=== PATIENT | female | born 1955 | race Caucasian/White ===

== ENCOUNTER → 2017-07-03 09:41 | Outpatient (CLI) | payer MEDICARE, OTHER, SELFPAY ==
--- NOTE | 2017-07-03 09:49 | XR_ITS ---
XR knee RT 3V Ordering Physician: Carly Olmos Patient Age: 62 years: Female HISTORY: ITS.REASON: RT KNEE PAIN TECHNIQUE: 3 view right knee COMPARISON :None available. FINDINGS No fracture nor dislocation. There is a joint effusion evident at suprapatellar bursa. Joint spaces fairly well maintained on this nonweightbearing study. Only slight sharpening of the medial margin of the joint may reflect some scant degenerative changes but unimpressive IMPRESSION: No fracture. Moderate to generous Joint effusion suprapatella bursa clearly evident
== END ==
PROVIDERS: PCP Nurse Practitioner Family; Visit Provider Nurse Practitioner Family
DX: M25.561 Pain in right knee (principal)
CPT/HCPCS: 73562

== ENCOUNTER → 2021-09-13 11:02 | Outpatient (CLI) | payer MEDICARE, SELFPAY ==
[2021-09-13 11:57] LABS: Basophils # 0.1 K/mm3 (0-0.2); Basophils % 1.1 % (0.1-2.0); Eosinophils # 0.2 K/mm3 (0.0-0.4); Eosinophils % 2.3 % (0.1-12.0); Hematocrit 46.8 % (37.0-47.0); Hemoglobin 15.2 g/dL (12.2-16.2); Lymphocytes # 1.3 K/mm3 (0.7-4.5); Lymphocytes % 20.8 % (10-50); Mean Corpuscular HGB Conc 32.4 g/dL (31.8-35.4); Mean Corpuscular Hemoglobin 28.9 pg (27.0-31.2); Mean Corpuscular Volume 89.2 fl (81-99); Mean Platelet Volume 8.2 fl (7.4-10.4); Monocytes # 0.3 K/mm3 (0.1-1.0); Neutrophils # 4.7 K/mm3 (1.8-7.8); Neutrophils % 71.9 % (37.0-80.0); Platelet Count 429 K/mm3 (142-424); Red Blood Count 5.25 M/mm3 (4.20-5.40); Red Cell Distribution Width 14.6 % (11.5-17.5); White Blood Count 6.5 K/mm3 (4.8-10.8)
[2021-09-13 12:51] LABS: 25-OH Vitamin D, Total 22.2 ng/mL (30-100)
[2021-09-13 15:49] LABS: Chloride 108 mmol/L (98-107); Sodium 140 mmol/L (136-145)
[2021-09-13 15:50] LABS: Potassium 4.3 mmoL/L (3.5-5.1)
[2021-09-13 15:52] LABS: Alanine Aminotransferase 20 U/L (12-78); Albumin Level 4.3 g/dl (3.5-5.0); Alkaline Phosphatase 104 U/L (38-126); Anion Gap 14.3 mEq/L (5-15); Aspartate Amino Transferase 26 U/L (14-36); Bilirubin,Total 0.5 mg/dl (0.2-1.3); Blood Urea Nitrogen 12 mg/dl (7-17); Carbon Dioxide 22 mmol/L (22.0-30.0); Cholesterol 231 mg/dl (140-200); Estimated Glomerular Filt Rate 100 ml/min (>60); GFR (African American) 121 ML/MIN (>60); Triglycerides 95 mg/dl (30-150); VLDL Cholesterol 19 mg/dL (0-40)
[2021-09-13 15:53] LABS: Albumin/Globulin Ratio 1.3 (1.1-1.8); Calcium 9.7 mg/dl (8.4-10.2); Globulin 3.3 g/dL (1.3-3.2); Glucose 99 mg/dl (74-100); HDL Cholesterol 58 mg/dl (40-60); Total Protein,Serum 7.6 g/dl (6.3-8.2)
[2021-09-13 16:04] LABS: Direct LDL Cholesterol 138.98 mg/dL (100-129)
[2021-09-13 16:10] LABS: T4 (Thyroxine) 11.9 ug/dl (5.53-11.0)
[2021-09-13 16:23] LABS: Thyroid Stimulating Hormone 1.03 uIU/mL (0.465-4.68)
== END ==
PROVIDERS: Visit Provider Emergency Medicine
DX: M79.2 Neuralgia and neuritis, unspecified (principal); E66.3 Overweight; M14.60 Charcot's joint, unspecified site; R53.83 Other fatigue; E55.9 Vitamin D deficiency, unspecified; Z79.899 Other long term (current) drug therapy; Z68.28 Body mass index [BMI] 28.0-28.9, adult
CPT/HCPCS: 80053; 80061; 82306; 84436; 84443; 85025

== ENCOUNTER → 2021-12-14 07:50 | Outpatient (CLI) | payer MEDICARE, OTHER, SELFPAY ==
--- NOTE | 2021-12-14 07:50 | CT_ITS ---
FINAL REPORT CLINICAL HISTORY: lung cancer screening 1ppd x 52 years copd no family hx of lung cancer. no hx of cancer FINDINGS: Low-Dose Chest CT CTDI vol (mGy): 2.90 DLP (mGy-cm): 107.33 Axial images were obtained from the lung apex to the mid abdomen by computed tomography. Low-dose protocol was utilized. FINDINGS: CHEST: There is no axillary adenopathy. There is no hilar or mediastinal adenopathy. The heart is proper size. There is no pericardial or pleural effusion. Limited images of the upper abdomen are unremarkable. Lung window images demonstrate moderate changes of emphysema with moderate scarring. There is a 5 mm nodule in the lateral right middle lobe. There are 10 and 6 mm nodules in the lateral right lower lobe. IMPRESSION: Lung RADS category 4A. Recommend PET/CT. Reviewed, Interpreted and Dictated by Erik Tomas III, MD Transcribed by Yahir Holt Authenticated and [facility]
== END ==
PROVIDERS: PCP Emergency Medicine; Visit Provider Emergency Medicine
DX: Z87.891 Personal history of nicotine dependence (principal); Z12.2 Encounter for screening for malignant neoplasm of respiratory organs
CPT/HCPCS: 71271

== ENCOUNTER → 2021-12-31 11:17 | Outpatient (CLI) | payer MEDICARE, OTHER, SELFPAY ==
[2021-12-31 12:19] LABS: Basophils % 0.3 % (0.1-2.0); Eosinophils # 0.2 K/mm3 (0.0-0.4); Hematocrit 47.2 % (37.0-47.0); Hemoglobin 15.3 g/dL (12.2-16.2); Lymphocytes # 1.5 K/mm3 (0.7-4.5); Lymphocytes % 17.3 % (10-50); Mean Corpuscular HGB Conc 32.5 g/dL (31.8-35.4); Mean Corpuscular Hemoglobin 28.8 pg (27.0-31.2); Mean Corpuscular Volume 88.8 fl (81-99); Mean Platelet Volume 7.8 fl (7.4-10.4); Monocytes # 0.4 K/mm3 (0.1-1.0); Monocytes % 4.2 % (1.7-9.3); Neutrophils # 6.5 K/mm3 (1.8-7.8); Neutrophils % 76.2 % (37.0-80.0); Platelet Count 376 K/mm3 (142-424); Red Blood Count 5.32 M/mm3 (4.20-5.40); Red Cell Distribution Width 14.1 % (11.5-17.5); White Blood Count 8.6 K/mm3 (4.8-10.8)
[2021-12-31 12:34] LABS: Alanine Aminotransferase 24 U/L (12-78); Albumin Level 4.3 g/dl (3.5-5.0); Alkaline Phosphatase 131 U/L (38-126); Anion Gap 13.5 mEq/L (5-15); Aspartate Amino Transferase 26 U/L (14-36); Bilirubin,Unconjugated 0.4 mg/dL (0.0-1.1); Blood Urea Nitrogen 8 mg/dl (7-17); Calcium 9.9 mg/dl (8.4-10.2); Carbon Dioxide 29 mmol/L (22.0-30.0); Chloride 105 mmol/L (98-107); Estimated Glomerular Filt Rate 100 ml/min (>60); GFR (African American) 121 ML/MIN (>60); Glucose 138 mg/dl (74-100); Potassium 3.5 mmoL/L (3.5-5.1); Sodium 144 mmol/L (136-145); Total Protein,Serum 7.6 g/dl (6.3-8.2)
[2021-12-31 12:35] LABS: Bilirubin,Total < 0.1 mg/dl (0.2-1.3)
[2021-12-31 15:41] LABS: Bilirubin,Direct 0.1 mg/dl (0.0-0.4)
[2022-01-01 23:38] LABS: Hep A Ab, IgM Negative; Hepatitis B Core Antibody IgM Negative; Hepatitis B Surface Antigen Negative; Hepatitis C Antibody 0.1
[2022-01-01 23:39] LABS: HIV Screen 4th Generation wRfx Non Reactive
== END ==
PROVIDERS: PCP Emergency Medicine; Visit Provider Nurse Practitioner Family
DX: F11.20 Opioid dependence, uncomplicated (principal); Z11.4 Encounter for screening for human immunodeficiency virus [HIV]
CPT/HCPCS: 36415; 80048; 80074; 80076; 85025; 86703; G0432

== ENCOUNTER 2022-01-05 08:36 | Observation (INO) | payer MEDICARE, OTHER, SELFPAY ==
[2022-01-05] VITALS (12 sets, daily range): BP systolic 110–128; BP diastolic 63–75; PULSE 72–97; RESP 18–26; TEMP 36.6–37.1; O2SAT 90–95; BMI 28.8; BMI 29.3
--- NOTE | 2022-01-05 08:36 | ECG_ITS ---
APPROVED REPORT Exam: Resting ECG HR:90 bpm ECG Measurements Heart Rate 90 AXES GA 129 P 78 QRSd 84 QRS 80 QT 340 T 92 QTc 388 Conclusion SINUS RHYTHM NORMAL ECG UNCONFIRMED REPORT Electronically signed by : Richie Orr MD 01/06/2022 21:09:49
--- NOTE | 2022-01-05 08:39 | HMH.EDGENADL ---
ED Disposition Clinical Impression: Community acquired pneumonia Qualifiers: Laterality: right Lung location: unspecified part of lung Qualified Code(s): J18.9 - Pneumonia, unspecified organism Disposition: Admitted as Observation Condition on Discharge: Fair Referrals: Dave Kidd MD [Primary Care Provider] - - Critical Care Critical Care Time: No Attestation: On , the high probability of a clinically significant, sudden or life threatening deterioration of the following system(s) required my full and direct attention, intervention and personal management. The time I documented below is in addition to time spent performing reported procedures but includes the following listed in this critical care notation. Medical Decision Making - João Inquiry Pt receiving controlled substance: No Vital Signs: 01/05/22 08:39 01/05/22 08:47 Temperature 98.7 F Temperature Source Oral Pulse Rate [Radial] 97 H Respiratory Rate 26 H Blood Pressure [Right Arm] 126/69 Blood Pressure Mean [Right Arm] 88 Blood Pressure Position [Right Arm] Sitting 02 Sat by Pulse Oximetry 90 L 93 L Oxygen Delivery Method Room Air Nasal Cannula Oxygen Flow Rate (LPM) 3 Orders (Tests/Meds): ED MEDICATIONS Generic Name Dose Route Start Last Admin Trade Name Freq PRN Reason Stop Dose Admin Sodium Chloride 3 ml 01/05/22 08:47 Sodium Chloride 3% 15ml [facility] 02/04/22 08:46 ONCE PRN INDUCE SPUTUM COLLECTION Discontinued Medications Generic Name Dose Route Start Last Admin Trade Name Freq PRN Reason Stop Dose Admin Albuterol/Ipratropium 3 ml 01/05/22 08:52 Ipratropium/Albuterol 3 Ml [facility] 01/05/22 08:53 ONCE ONE Methylprednisolone Sodium Succinate 125 mg 01/05/22 08:52 Methylprednisolone Sod Succ 125mg Vial IV 01/05/22 08:53 ONCE ONE ORDERS Category Date Time Status XR chest portable Stat Exams 01/05/22 08:47 Taken CMP [Comprehensive Metabolic Panel] Stat Lab 01/05/22 08:46 Ordered Complete Blood Count Auto Diff Stat Lab 01/05/22 08:46 Ordered Lactic Acid Stat Lab 01/05/22 08:47 Ordered Rapid PCR Covid and Flu A/B Stat Lab 01/05/22 08:50 Received Troponin I Q3H Lab 01/05/22 12:00 Ordered Troponin I Q3H Lab 01/05/22 15:00 Ordered Troponin I Stat Lab 01/05/22 08:46 Ordered Blood Culture Stat Micro 01/05/22 08:46 Ordered Sputum Culture & Gram Stain Stat Micro 01/05/22 08:47 Ordered - Radiology Data #1 Image(s): Chest (Preliminary interpretation by me: Right-sided infiltrates) Image Reviewed: Yes I reviewed the patient's radiology image - ECG Data Tracing #1 EKG interpreted by Bart Prakash MD: Rhythm: sinus Rate: 90 Bartow: normal Ectopy: none Conduction: normal ST Segment Changes: none T Wave Changes: none Q Waves: none No evidence of acute ischemia or injury Normal electrocardiogram General Adult HPI - General Stated complaint: Chest Pain/SOA Time Seen by Provider: 01/05/22 08:40 - History of Present Illness HPI narrative: 2-day history of cough productive of purulent sputum, shortness of air, right-sided chest pain that worsens with coughing and breathing. Denies fever. Denies rhinorrhea. She has had a sore throat, no voice change. No vomiting or diarrhea. She has COPD. She is a smoker. She is not on oxygen at home. She has a nebulizer, last used yesterday. She says she does not use it on a daily basis. She also has an inhaler. No known exposure to any illnesses, including COVID-19. She is not immunized against COVID-19. - Related Data Home Medications Medication Instructions Recorded Confirmed buprenorphine 8 mg-naloxone 2 mg SUBLINGUAL 06/22/21 12/06/21 sublingual tablet Previous Rx's Medication Instructions Recorded albuterol sulfate 90 mcg/actuation 2 puff INHALATION Q8H PRN #8.5 g 09/13/21 aerosol inhaler atorvastatin 10 mg tablet 10 mg PO HS #90 tab 09/15/21 cholecalciferol (vitamin
--- NOTE | 2022-01-05 08:43 | PC.NURSE ---
ECG obtained, Carin Reilly getting IV and labs
--- NOTE | 2022-01-05 08:47 | XR_ITS ---
PROCEDURE INFORMATION: Exam: XR Chest Exam date and time: 01/05/2022 9:09 AM Age: 66 years old Clinical indication: Dyspnea; Additional info: SOB TECHNIQUE: Imaging protocol: Radiologic exam of the chest. Views: 1 view. COMPARISON: CT LUNG SCREENING 12/14/2021 8:04 AM FINDINGS: Lungs: Patchy airspace opacities in the mid right lung and lower lungs bilaterally. Pleural spaces: Unremarkable. No pleural effusion. No pneumothorax. Heart/Mediastinum: Unremarkable. No cardiomegaly. Bones/joints: Unremarkable. IMPRESSION: Patchy bilateral airspace opacities may reflect pneumonia.
--- NOTE | 2022-01-05 08:49 | PC.NURSE ---
lung sounds with crackles noted to rt side.
--- NOTE | 2022-01-05 08:54 | PC.NURSE ---
Tommie Azevedo attempting to get iv along with king still
[2022-01-05 08:57] LABS: Coronavirus 19, PCR Not Detected (NotDetected); Influenza A, PCR Not Detected (NotDetected); Influenza B, PCR Not Detected (NotDetected)
--- NOTE | 2022-01-05 09:00 | PC.NURSE ---
IV successful, however not able to obtain blood. lab called for blood collection.
--- NOTE | 2022-01-05 09:17 | PC.NURSE ---
called resp for breathing tx
--- NOTE | 2022-01-05 09:21 | PC.NURSE ---
RT at BS to give NEB treatment
--- NOTE | 2022-01-05 09:45 | PC.NURSE ---
pt medicated per MAR, family at BS. Pt given glass of water-okayed by GAIL VÁZQUEZ. Pt O2 decreased to 2L per NC at this time, SaO2 on 3L was 95% will continue to monitor
[2022-01-05 09:52] LABS: Alanine Aminotransferase 21 U/L (12-78); Albumin Level 3.8 g/dl (3.5-5.0); Alkaline Phosphatase 119 U/L (38-126); Anion Gap 8.9 mEq/L (5-15); Aspartate Amino Transferase 27 U/L (14-36); Basophils % 0.4 % (0.1-2.0); Bilirubin,Total 0.9 mg/dl (0.2-1.3); Blood Urea Nitrogen 7 mg/dl (7-17); Carbon Dioxide 27 mmol/L (22.0-30.0); Chloride 105 mmol/L (98-107); Creatinine Clearance Estimated 69 mL/min (50-200); Eosinophils # 0.1 K/mm3 (0.0-0.4); Eosinophils % 1.2 % (0.1-12.0); Estimated Glomerular Filt Rate 160 ml/min (>60); GFR (African American) 194 ML/MIN (>60); Globulin 3.8 g/dL (1.3-3.2); Glucose 132 mg/dl (74-100); Hematocrit 43.2 % (37.0-47.0); Hemoglobin 14.3 g/dL (12.2-16.2); Lymphocytes # 0.9 K/mm3 (0.7-4.5); Lymphocytes % 8.4 % (10-50); Mean Corpuscular Hemoglobin 29.3 pg (27.0-31.2); Mean Corpuscular Volume 88.7 fl (81-99); Mean Platelet Volume 8.6 fl (7.4-10.4); Monocytes # 0.7 K/mm3 (0.1-1.0); Monocytes % 6.2 % (1.7-9.3); Neutrophils # 9.4 K/mm3 (1.8-7.8); Neutrophils % 83.9 % (37.0-80.0); Platelet Count 406 K/mm3 (142-424); Potassium 3.9 mmoL/L (3.5-5.1); Red Blood Count 4.87 M/mm3 (4.20-5.40); Red Cell Distribution Width 14.6 % (11.5-17.5); Sodium 137 mmol/L (136-145); Total Protein,Serum 7.6 g/dl (6.3-8.2); White Blood Count 11.2 K/mm3 (4.8-10.8)
--- NOTE | 2022-01-05 10:02 | PC.NURSE ---
per crystal in radiology pt xray has been sent to [facility], states their turn around time is showing approx 115 minutes at this time. notified GAIL VÁZQUEZ
[2022-01-05 10:04] LABS: Troponin I < 0.01 ng/ml (0.00-0.034)
--- NOTE | 2022-01-05 10:11 | PC.NURSE ---
erector operator paging
--- NOTE | 2022-01-05 10:13 | PC.NURSE ---
GAIL VÁZQUEZ speaking Dr Alejandro
--- NOTE | 2022-01-05 10:14 | PC.NURSE ---
ER MD at speaking with patient regarding update on POC.
--- NOTE | 2022-01-05 10:15 | PC.NURSE ---
ER at updated pt on POC/admission
--- NOTE | 2022-01-05 10:15 | PC.NURSE ---
notified care management of admission, spoke with Misty. States pt will be an obs admission
--- NOTE | 2022-01-05 10:18 | PC.NURSE ---
per housekeeper pt assigned to room 214
--- NOTE | 2022-01-05 10:23 | PC.NURSE ---
home medications reconcilled with pt at BS and updated in the computer at this time.
--- NOTE | 2022-01-05 10:45 | PC.NURSE ---
report called to floor
--- NOTE | 2022-01-05 10:50 | PC.NURSE ---
med/doll surgeon here for pt transport
--- NOTE | 2022-01-05 10:51 | PC.NURSE ---
notified pt is ready for admission orders.
--- NOTE | 2022-01-05 10:58 | PC.NURSE ---
pt going for transport to bed upstairs
--- NOTE | 2022-01-05 13:39 | PC.NURSE ---
rounded on patient. patient resting in bed with family at bedside lights off. no questions needs or concerns noted.
--- NOTE | 2022-01-05 16:10 | PC.NURSE ---
Pt admitted from ED for pneumonia. VS stable and pt remains on 2LNC with no complications. Room is cold despite attempts to increase temperature. Maintenance called and was told they would be by to look at room. No other complaints noted.
[2022-01-06] VITALS (10 sets, daily range): BP systolic 105–126; BP diastolic 55–63; PULSE 66–85; RESP 16–20; TEMP 36.4–36.9; O2SAT 90–95
--- NOTE | 2022-01-06 04:02 | PC.NURSE ---
pt has slept most of this shift. she is a&oX4. she has had a non-productive cough, wheezes heard in bilat lungs, t/o. she remains on 3.5L O2 NC with O2 sats 90-94%. Clubbing of nail beds noted. vericose veins noted in BLE. she has ambulated to bathroom independently. call light withinr each, no complaints or needs at this time.
--- NOTE | 2022-01-06 05:09 | PC.NURSE ---
pt has slept most of this shift. she is a&oX4. she has had a non-productive cough, wheezes heard in bilat lungs, t/o. she remains on 3.5L O2 NC with O2 sats 90-94%. Clubbing of nail beds noted. she has ambulated to bathroom independently. call light withinr each, no complaints or needs at this time.
[2022-01-06 06:11] LABS: Basophils % 0.5 % (0.1-2.0); Eosinophils # 0.1 K/mm3 (0.0-0.4); Eosinophils % 1.2 % (0.1-12.0); Hematocrit 43.2 % (37.0-47.0); Hemoglobin 14.4 g/dL (12.2-16.2); Lymphocytes # 0.6 K/mm3 (0.7-4.5); Lymphocytes % 6.4 % (10-50); Mean Corpuscular HGB Conc 33.3 g/dL (31.8-35.4); Mean Platelet Volume 9.4 fl (7.4-10.4); Monocytes # 0.4 K/mm3 (0.1-1.0); Monocytes % 3.8 % (1.7-9.3); Neutrophils # 8.2 K/mm3 (1.8-7.8); Neutrophils % 88.2 % (37.0-80.0); Platelet Count 399 K/mm3 (142-424); Red Cell Distribution Width 14.4 % (11.5-17.5); White Blood Count 9.3 K/mm3 (4.8-10.8)
[2022-01-06 06:15] LABS: MANUAL DIFFERENTIAL MANUAL DIFFERENTIAL (MANUAL DIFF)
[2022-01-06 06:42] LABS: Lymphocytes % 15 % (10-50); Monocytes % 1 % (2-9); Neutrophils % 84 % (42-76); Total Cells Counted 100
[2022-01-06 06:43] LABS: Hypochromasia 1+; Platelet Estimate Slight Increase; Poikilocytosis 1+
[2022-01-06 06:58] LABS: Anion Gap 9.7 mEq/L (5-15); Blood Urea Nitrogen 13 mg/dl (7-17); Calcium 9.6 mg/dl (8.4-10.2); Carbon Dioxide 25 mmol/L (22.0-30.0); Chloride 107 mmol/L (98-107); Creatinine Clearance Estimated 71 mL/min (50-200); Estimated Glomerular Filt Rate 160 ml/min (>60); GFR (African American) 194 ML/MIN (>60); Glucose 187 mg/dl (74-100); Potassium 4.7 mmoL/L (3.5-5.1); Sodium 137 mmol/L (136-145)
--- NOTE | 2022-01-06 08:48 | HMH.HP ---
*Admission Date: 01/05/22 *Chief complaint: Shortness of breath *History of present illness: 66-year-old female patient presented to the [facility] emergency department for reports of increased shortness of breath, productive cough, and right-sided chest pain that increased with coughing and breathing. She denies any fever/chills/body aches, nausea/vomiting/diarrhea, and has taste and smell. She is a smoker and has a longstanding history of COPD, she is not on home oxygen but does have a nebulizer which she reports she has been using. She denies any exposure to any known illnesses and is not immunized against COVID-19 Heart rate 97, respiratory rate 26, chest x-ray reveals right lower lobe pneumonia Chest x-ray reveals right mid and lower lobe pneumonia She did receive azithromycin, ceftriaxone, and methylprednisone IV [facility] History I have reviewed the patient's past medical history: Yes Medical History: Reports:: Chronic Obstructive Pulmonary Disease (COPD) Denies:: Diabetes Mellitus Type 1, Diabetes Mellitus Type 2 *Have you ever received a pneumonia vaccine?: No *Have you received a flu vaccine this season?: Yes Other Medical History: Reports: Fibromyalgia - *Social History Smoking Status: Current every day smoker Tobacco Type: cigarettes # Packs/Day (cigarettes): 1 #Yrs smoked (if former smoker): 50 Alcohol Intake: never Substance Use Type: former substance user, opiates, painkillers *Occupational Status:: retired Household Members: family *Travel in the last 8 weeks: None Family Hx:: Unable to obtain Review of Systems - Review of Systems Review of systems:: pertinent systems reviewed and negative unless documented below - Constitutional Reports fatigue, Denies fever(s) - Eyes Denies change in vision, Denies double vision - ENT Denies difficulty swallowing, Denies sinus pressure - *Cardiovascular Reports shortness of breath, Reports shortness of breath with activity, Denies chest pain - *Respiratory Reports chest congestion, Reports cough, Reports shortness of breath, Reports shortness of breath with activity - *Gastrointestinal Denies abdominal pain, Denies constipation - *Musculoskeletal Denies back pain, Denies muscle weakness - Integumentary/Breasts Denies change in skin color, Denies skin ulcer - *Neurologic Denies confusion, Denies dizziness - Psychiatric Denies change in appetite, Denies confusion - Endocrine Denies cold intolerance, Denies rapid, pounding, or irregular heartbeat - Hematologic/Lymphatic Denies easy bleeding, Denies easy bruising - Allergic/Immunologic Denies GI upset with certain foods, Denies itchy eyes Meds Home Medications Medication Instructions Recorded Confirmed Type buprenorphine 8 mg-naloxone 2 mg 2 tab SUBLINGUAL DAILY 06/22/21 01/05/22 History sublingual tablet albuterol sulfate 90 mcg/actuation 2 puff INHALATION Q8H PRN #8.5 g 09/13/21 01/05/22 Rx aerosol inhaler ondansetron 8 mg disintegrating 8 mg PO Q8H PRN #30 tab 09/24/21 01/05/22 Rx tablet promethazine 25 mg tablet 25 mg PO Q12H PRN #30 tab 12/27/21 01/05/22 Rx Atorvastatin Calcium [Lipitor 10mg 10 mg PO HS 01/05/22 01/05/22 History Tab] Cholecalciferol (Vitamin D3) 1,250 mcg PO WEEKLY 01/05/22 01/05/22 History [Vitamin D3 50,000 unit Cap] Fluticasone/Umeclidin/Vilanter 1 inh IH DAILY 01/05/22 01/05/22 History [Trelegy Ellipta] Pregabalin 300 mg PO BID 01/05/22 01/05/22 History Allergies Allergy/AdvReac Type Severity Reaction Status Date / Time No Known Allergies Allergy Unverified 12/06/21 11:04 Exam Vital signs and Labs for Last 24 Hours: Temp Pulse Resp BP Pulse Ox 97.7 F 66 18 107/56 L 94 L 01/06/22 04:00 01/06/22 06:45 01/06/22 04:00 01/06/22 04:00 01/06/22 06:45 Laboratory Results - last 24 hr 01/05/22 08:50: SARS-CoV-2 (PCR) Not detected, Influenza A Untype (PCR) Not detected, Influenza Type B (PCR) Not
[2022-01-06 09:11] LABS: Adenovirus,PCR Not Detected (NotDetected); Bordetella Pertussis Not Detected (NotDetected); Chlamydophila Pneumoniae, PCR Not Detected (NotDetected); Coronavirus 229E Not Detected (NotDetected); Coronavirus NL63 Not Detected (NotDetected); Coronavirus OC43 Not Detected (NotDetected); Coronovirus HKU1,PCR Not Detected (NotDetected); Human Metapneumovirus Not Detected (NotDetected); Influenza A, PCR Not Detected (NotDetected); Influenza AH1, 2009 Not Detected (NotDetected); Influenza AH1, PCR Not Detected (NotDetected); Influenza AH3,PCR Not Detected (NotDetected); Influenza B, PCR Not Detected (NotDetected); Mycoplasma Pneumoniae, PCR Not Detected (NotDetected); Parainfluenza 1, PCR Not Detected (NotDetected); Parainfluenza 2, PCR Not Detected (NotDetected); Parainfluenza 3, PCR Not Detected (NotDetected); Parainfluenza 4, PCR Not Detected (NotDetected); Respiratory Syncytial Virus Not Detected (NotDetected); Rhinovirus/Enterovirus Not Detected (NotDetected)
--- NOTE | 2022-01-06 09:37 | HMH.PULMCON ---
*Admission Date: 01/05/22 *Reason for consult:: COPD exacerbation, pneumonia *History of present illness: Ms. Luo is a 66-year-old female current smoker greater than 64-[id number]-ilue smoking history smoked 2 to 3 packs a day, currently down to half pack a day carries a diagnosis COPD on Trelegy inhaler therapy, not on any home oxygen therapy, presented with worsening respiratory distress, productive phlegm, new oxygen requirements and pulmonary was called for further management. [facility] History Medical History: Reports:: Chronic Obstructive Pulmonary Disease (COPD) Denies:: Diabetes Mellitus Type 1, Diabetes Mellitus Type 2 *Have you ever received a pneumonia vaccine?: No *Have you received a flu vaccine this season?: Yes Other Medical History: Reports: Fibromyalgia - *Social History Smoking Status: Current every day smoker Tobacco Type: cigarettes # Packs/Day (cigarettes): 1 #Yrs smoked (if former smoker): 50 Alcohol Intake: never Substance Use Type: former substance user, opiates, painkillers *Occupational Status:: retired Household Members: family *Travel in the last 8 weeks: None Family Hx:: Unable to obtain ROS - Cons Reports body ache(s), Reports fatigue, Reports fever(s) - Eyes Reports blurry vision - ENT Denies difficulty swallowing - Card Reports shortness of breath, Reports shortness of breath with activity - Resp Respiratory: Reports shortness of breath, Reports chest congestion, Reports cough, Reports excessive phlegm production - GI Gastrointestingal: Denies: abdominal pain - [place] Musculoskeletal: Reports muscle weakness - Psych Denies thoughts of hurting/killing others, Denies thoughts of hurting/killing yourself Meds Home Medications Medication Instructions Recorded Confirmed Type buprenorphine 8 mg-naloxone 2 mg 2 tab SUBLINGUAL DAILY 06/22/21 01/05/22 History sublingual tablet ondansetron 8 mg disintegrating 8 mg PO Q8H PRN #30 tab 09/24/21 01/05/22 Rx tablet Atorvastatin Calcium [Lipitor 10mg 10 mg PO HS 01/05/22 01/05/22 History Tab] Cholecalciferol (Vitamin D3) 1,250 mcg PO WEEKLY 01/05/22 01/05/22 History [Vitamin D3 50,000 unit Cap] Fluticasone/Umeclidin/Vilanter 1 inh IH DAILY 01/05/22 01/05/22 History [Trelegy Ellipta] Pregabalin 300 mg PO BID 01/05/22 01/05/22 History Albuterol Sulfate [Albuterol 2 puff IH Q8HP PRN 01/06/22 01/06/22 History Sulfate Hfa] Promethazine HCl [Phenergan 25mg 25 mg PO Q12HP PRN 01/06/22 01/06/22 History tab] Allergies Allergy/AdvReac Type Severity Reaction Status Date / Time No Known Allergies Allergy Unverified 12/06/21 11:04 Exam - Constitutional Constitutional:: Present: no acute distress, comfortable - HENMT Exam HENMT: Present: normocephalic - Eye Exam Eyes:: Present: normal appearance both eyes and related structures - Neck Exam Neck:: Present: normal visual inspection - Respiratory Exam Respiratory:: Present: able to speak in complete sentences, no respiratory distress, wheezing - Cardiovascular Exam Cardiac:: Present: S1, S2 - GI Exam GI:: Present: soft - Skin Exam Skin: Present: warm, no rash - Neurological Exam Neurological: Present: alert, awake - Extremities Exam Extremities: Present: no cyanosis, no clubbing, no edema Internal Medicine - CN: Reslt - Labs CBC & Chem 7: 01/06/22 05:45 01/06/22 05:45 Labs: Short CBC 01/05/22 01/06/22 Range/Units 09:17 05:45 WBC 11.2 H 9.3 (4.8-10.8) K/mm3 Hgb 14.3 14.4 (12.2-16.2) g/dL Hct 43.2 43.2 (37.0-47.0) % Plt Count 406 399 (142-424) K/mm3 BMP 01/05/22 01/06/22 09:17 05:45 Sodium 137 137 Potassium 3.9 4.7 D Chloride 105 107 Carbon Dioxide 27 25 BUN 7 13 D Creatinine 0.40 L 0.40 L Glucose 132 H 187 H D Calcium 9.0 9.6 Cardiac Enzymes 01/05/22 Range/Units 09:17 Troponin I < 0.01 (0.00-0.034) ng/ml Liver Function 01/05/22 Range/Units 09:17
--- NOTE | 2022-01-06 10:01 | HMH.PHAVTE ---
[facility] Pharmacy VTE Monitoring - Patient Demographics Admission date: 01/05/22 Report Date: 01/06/22 Time: 10:01 Allergies/Adverse Reactions: Patient Allergies No Known Allergies Allergy (Unverified 12/06/21 11:04) Height: 1.65 m Weight: 80.002 kg Patient Problems: Current Active Problems Community acquired pneumonia (Acute) - VTE Risk Labs: VTE Related Lab Results Hgb 14.4 g/dL (12.2-16.2) 01/06/22 05:45 Hct 43.2 % (37.0-47.0) 01/06/22 05:45 Plt Count 399 K/mm3 (142-424) 01/06/22 05:45 BUN 13 mg/dl (7-17) D 01/06/22 05:45 Creatinine 0.40 mg/dl (0.52-1.04) L 01/06/22 05:45 Estimated Creat Clear 71 mL/min (50-200) 01/06/22 05:45 Was VTE Risk Assessment Performed: Yes VTE Score: 5 VTE Risk Level: Low Risk - Prophylaxis VTE Prophylaxis Ordered?: Yes Types of VTE Prophylaxis: TEDS Knee High Location of Applied Device: Bilateral Lower Extremeties
--- NOTE | 2022-01-06 11:17 | PC.NURSE ---
morning rounds with md, case management, and radioisotope technologist. patient sitting up in bed on 3.5l. plan for dr. mcbride consult and possible dc today
--- NOTE | 2022-01-06 11:31 | PC.NURSE ---
ROOM AIR SATURATION 88% AT REST.
--- NOTE | 2022-01-06 12:32 | CA_ITS ---
APPROVED REPORT EXAM: Comprehensive 2D, Doppler, and color-flow Echocardiogram Marketing Strategy Manager: Milana Hayden, RT(R) Ht: 5 ft 5 in Wt: 176lbs BSA: 1.87 BP: 107/56 mmHg Indications: SOA, COPD, smoker, pneumonia 2D Dimensions LVOT 1.99 cm (M/F) 1.5-2.5 M-Mode Dimensions RVDd 2.89 cm (0.9-2.6) LA Diam 2.52 cm (1.9-4.0) LVDd 3.42 cm (3.5-5.7) Ao Diam 2.10 cm (2.0-3.7) LVDs 2.55 cm (3.5-5.7) IVSd 0.65 cm (0.6-1.1) PWd 0.76 cm (0.6-1.1) EF (Teich) 51.40% FS 25.40% EDV (Teich) 48.10 mL ESV (Teich) 23.40 mL LV Diastology E Decel Time 203.00 (160-240 msec) E/A Ratio 0.67 MED E' 10.40 (< 7 cm/sec) E'/MED E' Ratio 7.01 (>14) LAT E' 10.20 (<10 cm/sec) E/LAT E' Ratio 7.15 (>14) Mitral Valve MV A Velocity 108.00 (40-130 cm/s) E/A Ratio 0.67 MV Decel. Time 203.00 (160-240 ms) Tricuspid Valve TR P. Velocity 295.00 cm/s RAP Estimate 10.00 mmHg RVSP 44.80 mmHg Left Ventricle Left atrium is mildly enlarged, left ventricle is normal size mild concentric left ventricular hypertrophy, estimated ejection fraction 55% with no regional wall motion abnormality, grade 1 diastolic dysfunction seen without tissue Doppler evidence of raise left atrial pressure. Right Ventricle Right atrium and right ventricle are mildly enlarged with normal contractility. Aortic Valve Aortic valve is minimally thickened and fibrosed there is no aortic stenosis aortic insufficiency. Mitral Valve Mitral valve grossly normal, there is trace mitral regurgitation. Tricuspid Valve Tricuspid grossly normal, there is trace tricuspid regurgitation, tricuspid regurgitation jet velocity is inadequate for calculation of the right ventricular systolic pressure. Pulmonic Valve Pulmonic valve is poorly visualized. Great Vessels Aortic root is normal size. Inferior vena cava is poorly visualized. Pericardium No significant pericardial effusion noted. Conclusion 1. Biatrial enlargement, normal left ventricular size, mild concentric left ventricular hypertrophy, estimated ejection fraction 55% with no regional wall motion abnormality, grade 1 diastolic dysfunction seen without tissue Doppler evidence of raise left atrial pressure. 2. Mildly enlarged right ventricle with normal contractility. 3. Trace mitral and tricuspid regurgitation. 4. No significant pericardial effusion 5. Inferior vena cava is poorly visualized. Electronically signed by : Kenneth Contreras MD 01/07/2022 15:33:40
--- NOTE | 2022-01-06 14:04 | PC.NURSE ---
attempted ultrasound iv at this time, one stick. unable to access. kevin attempted with two sticks and was able to get a 20 gauge in the r upper arm.
--- NOTE | 2022-01-06 14:47 | PC.NURSE ---
Addendum entered by Alvina Boland RN 01/06/22 15:49: RADIOLOGY CALLED BACK AND STATED PT WAS ADMINISTERED 30 ML'S OF CONTRAST THROUGH IV. PRE-OP ATTEMPTED ANOTHER US IV AND WAS UNSUCCESSFUL. NOTIFIED AND HE ORDERED FOR PT TO HAVE CHEST CT W/O CONTRAST. RADIOLOGY NOTIFIED. Addendum entered by Alvina Boland RN 01/06/22 15:17: PT ARRIVED BACK TO THE FLOOR FROM RADIOLOGY AND IT WAS REPORTED TO THIS NURSE THAT IV WAS BLOWN BEFORE CONTRAST WAS ADMINISTERED. IV WAS DC'D PER RADIOLOGY. PT STATED SHE WAS OKAY WITH STAFF TRYING ANOTHER US GUIDED ONE MORE TIME. PRE-OP NOTIFIED. Original Note: PT IS RESTING IN BED WITH FAMILY AT BEDSIDE. ALERT AND ORIENTED X4. EATING AND DRINKING WELL. LUNG SOUNDS HAVE SCATTERED WHEEZES WITH CRACKLES (RT BASE). ABDOMEN SOFT/NON TENDER WITH ACTIVE BOWEL SOUNDS. TEDS NOTED TO BLE. NEW IV ACCESS NOTED TO THE MAURO (US GUIDED). PT WAS DISAPPOINTED TO FIND OUT THAT SHE WAS NOT GOING TO BE DISCHARGED TODAY. O2 SATURATION HAS MAINTAINED 90-93% ON 2 L NC. WILL CONTINUE TO MONITOR.
--- NOTE | 2022-01-06 15:47 | CT_ITS ---
PROCEDURE INFORMATION: Exam: CT Chest Without Contrast; Diagnostic Exam date and time: 01/06/2022 4:08 PM Age: 66 years old Clinical indication: Pain; Shortness of breath; Other: Left lower lung base, left upper abdomen area; Additional info: SOA TECHNIQUE: Imaging protocol: Diagnostic computed tomography of the chest without contrast. Radiation optimization: All CT scans at this facility use at least one of these dose optimization techniques: automated exposure control; mA and/or kV adjustment per patient size (includes targeted exams where dose is matched to clinical indication); or iterative reconstruction. COMPARISON: CT ANGIO CHEST PE PROTOCOL 01/06/2022 2:55 PM FINDINGS: Lungs: Centrilobular emphysema. Patchy region of opacification laterally in the right upper lobe. Regions of subsegmental atelectasis and parenchymal scarring at the right lung base. Mild changes of bronchiectasis with peribronchial thickening in regions of contained secretions at the left lung base. Superimposed atelectasis. Diffuse regions of ground-glass opacification interspersed by regions of cystic change. Pleural spaces: Right pleural calcification at the lung apex. Heart: Coronary artery calcification. Lymph nodes: Nonspecific mediastinal lymph nodes in the pretracheal space. Vasculature: Atherosclerotic vascular calcification involving the aortic arch. Bones/joints: Unremarkable. No acute fracture. Soft tissues: Unremarkable. IMPRESSION: 1. Centrilobular emphysema. 2. Bronchitis with associated bronchiectasis and contained endobronchial secretions at the left lung base. Superimposed atelectasis. 3. Diffuse ground-glass regions of opacification. Findings most likely reflect changes related to interstitial lung disease however nonspecific. 4. Subsegmental atelectasis with postinflammatory scarring right lung base. 5. Minimal patchy region of opacification posteriorly in the periphery of the right upper lobe. Findings may reflect sequela of previous viral pneumonia. Clinically correlate
[2022-01-06 21:52] LABS: Appearance,Urine CLEAR (Clear); Bilirubin,Urine Negative (Negative); Blood, Urine TRACE-I (Negative); Color,Urine YELLOW (Yellow); Glucose,Urine (UA) Negative (Negative); Ketones,Urine Negative (Negative); Leukocyte Esterase,Urine Negative (Negative); Microscopic, Urine URINE MICROSCOPIC (MICROSCOPIC); Nitrate,Urine Negative (Negative); Protein,Urine Negative (Negative)
[2022-01-06 22:23] LABS: RBC,Urine Occasional #/hpf (0-3); Squamous Epithelial Cell,Urine Occasional #/hpf (0-5); WBC,Urine Occasional #/hpf (0-3)
[2022-01-07 04:00] VITALS: BP 124/64; PULSE 76; RESP 16; TEMP 36.6; O2SAT 94
--- NOTE | 2022-01-07 04:34 | PC.NURSE ---
20 G IV in right wrist infiltrated before giving scheduled iv solu-medrol this am. pt refuses to be stuck anymore. dr notified and ordered solu-medrol 60 mg IM Q8HR URSULA
--- NOTE | 2022-01-07 05:36 | PC.NURSE ---
pt hasn't rested well this shift. she has c/o LLQ abd pain. abd is slightly distended and slightly firm. she states she has not had a bm in a couple of days, but that is normal for her. dr lauren was notified and ordered a UA. pt lost iv access this am when scheduled solu-medrol was due. iv access was attempted by 4 different nurses and pt refused any more iv sticks. dr lauren was notified and switched solu-medrol IV to IM. pt c/o nausea this am and requested phenergan. it was not due, and zofran was ordered iv so dr lauren was notified. he ordered zofran to be switched from iv to po. no other issues this shift. pt is now on 3l nc and o2 sat is 94%. expiratory wheezes auscultated in BUL.
[2022-01-07 05:50] VITALS: BMI 32.6
[2022-01-07 06:35] LABS: Anion Gap 10.1 mEq/L (5-15); Blood Urea Nitrogen 19 mg/dl (7-17); Calcium 9.9 mg/dl (8.4-10.2); Carbon Dioxide 27 mmol/L (22.0-30.0); Chloride 107 mmol/L (98-107); Creatinine Clearance Estimated 79 mL/min (50-200); Estimated Glomerular Filt Rate 124 ml/min (>60); GFR (African American) 150 ML/MIN (>60); Glucose 129 mg/dl (74-100); Potassium 5.1 mmoL/L (3.5-5.1); Sodium 139 mmol/L (136-145)
[2022-01-07 07:36] VITALS: O2SAT 93
[2022-01-07 08:00] VITALS: BP 119/67; PULSE 73; RESP 18; TEMP 36.5; O2SAT 94
--- NOTE | 2022-01-07 09:05 | HMH.DCSUM ---
General - General Admission date:: 01/05/22 Discharge date: 01/07/22 HPI HPI: 66-year-old female patient presented to the [facility] emergency department for reports of increased shortness of breath, productive cough, and right-sided chest pain that increased with coughing and breathing. She denies any fever/chills/body aches, nausea/vomiting/diarrhea, and has taste and smell. She is a smoker and has a longstanding history of COPD, she is not on home oxygen but does have a nebulizer which she reports she has been using. She denies any exposure to any known illnesses and is not immunized against COVID-19 Heart rate 97, respiratory rate 26, chest x-ray reveals right lower lobe pneumonia Chest x-ray reveals right mid and lower lobe pneumonia She did receive azithromycin, ceftriaxone, and methylprednisone IV Hospital Course Hospital Course: Patient remains admitted as noted. Pulmonary consultation reviewed and appreciated. Patient improved very nicely in a stepwise fashion over the next couple of days. Unfortunately she lost IV access and adamantly declined any further attempts at IV access, blood sticks, etc. Respiratory status improved and CT scanning showed evidence of viral pneumonitis. She did have a new oxygen requirement which is certainly expected given a viral pneumonitis and worsening COPD status. This morning she felt good and wished to be discharged. However, 1 out of 2 bottles showed preliminary growth of staph aureus. She is afebrile, appears clinically improving and has no signs/stigmata of bacteremia. Plan will be as follows: 1. She will be discharged on antibiotics for her COPD exacerbation as well as steroids, will initiate Zyvox therapy p.o. for the possible staph infection. 2. We will initiate short-term follow-up at the [facility] primary care clinic in [place] to go over culture results and make sure she is improving at home. 3. She has pulmonary follow-up next Monday and she was encouraged to keep this. 4. She has a nebulizer machine with albuterol. We will ramp up therapy to albuterol/ipratropium 3 times daily and new prescription for nebulizer vials will be sent. New oxygen requirement-we will initiate home oxygen therapy. She is going to stay with her daughter for the next several days in [facility]. Objective Vital signs: Temp Pulse Resp BP Pulse Ox 97.7 F 73 18 119/67 94 L 07/29/22 08:00 01/07/22 08:00 01/07/22 08:00 01/07/22 08:00 01/07/22 08:00 no acute distress - *Routine HEENT Exam Head: Present: normocephalic Eye: Present: EOMI, PERRL ENT: Present: mucous membranes moist - *Routine Neck Exam Present: supple - *Routine Respiratory Exam Present: rhonchi, wheezes Comments: Overall excellent air movement, loose rhonchi Apparently improving from baseline exams. - *Routine Cardiovascular Exam Present: RRR - *Routine Abdominal Exam Present: soft, normoactive bowel sounds. Absent: tenderness Comments: Normal minimal abdominal tenderness in the left lower quadrant superficial muscle palpation. Patient thinks it is from her coughing. Denies deep tenderness, diarrhea or constipation. - *Routine Extremities Exam Absent: cyanosis, clubbing, edema - *Routine Skin Exam Present: warm. Absent: rash - Detailed Eye Exam Eyelids: Bilateral normal inspection Results Labs on day of discharge: Labs from last 24 hours 01/07/22 01/06/22 01/06/22 05:55 21:45 09:05 Sodium 139 Potassium 5.1 Chloride 107 Carbon Dioxide 27 Anion Gap 10.1 BUN 19 H D Creatinine 0.50 L D Estimated Creat Clear 79 Estimated GFR 124 Est GFR ( Amer) 150 D Glucose 129 H Calcium 9.9 Urine Color Yellow Urine Appearance Clear Urine pH 6.0 Ur Specific [place] 1.010 Urine Protein Negative Urine Glucose (UA) Negative Urine Ketones Negative Urine
--- NOTE | 2022-01-07 09:44 | HMH.PULMPN ---
Internal Medicine - PN: Subj *Date: 01/07/22 *Time: 10:56 Interval history: No acute respiratory vents overnight. Admits continued improvement in symptoms. Exam - Constitutional Constitutional:: Present: no acute distress, comfortable - HENMT Exam HENMT: Present: normocephalic - Eye Exam Eyes:: Present: normal appearance both eyes and related structures - Neck Exam Neck:: Present: normal visual inspection - Respiratory Exam Respiratory:: Present: able to speak in complete sentences, no respiratory distress. Absent: wheezing - Cardiovascular Exam Cardiac:: Present: S1, S2 - GI Exam GI:: Present: soft - Skin Exam Skin: Present: warm - Neurological Exam Neurological: Present: alert, awake - Extremities Exam Extremities: Present: no cyanosis, no clubbing, no edema Assessment and Plan (1) Bacteremia due to Staphylococcus Status: Acute Category: Medical Code(s): R78.81 - Bacteremia; B95.8 - Unspecified staphylococcus as the cause of diseases classified elsewhere (2) Community acquired pneumonia Status: Acute Qualifiers: Laterality: right Lung location: unspecified part of lung Qualified Code(s): J18.9 - Pneumonia, unspecified organism Category: Medical Code(s): J18.9 - Pneumonia, unspecified organism (3) COPD (chronic obstructive pulmonary disease) Status: Acute Category: Medical Code(s): J44.9 - Chronic obstructive pulmonary disease, unspecified - Assessment and plan all Dx Assessment and Plan for all problems:: #COPD exacerbation: #Community-acquired pneumonia: Current smoker greater than 26-[id number]-lgus smoking history, diagnosed with COPD. Triple inhaler therapy. Not on any oxygen therapy. Presently worsening cough along with worsening productive thick yellowish phlegm. Chest x-ray on this admission concerning for right lower lobe and right middle lobe airspace disease. Mild leukocytosis on admission improving. Initiate antibiotic ablation therapies. Improving respiratory status. Plan: -Continue oxygen therapy to maintain O2 saturation above 90% and above. Currently needing 3 L oxygen therapy. Please arrange oxygen prior to discharge. -Levofloxacin 750mg daily to complete a total of 5-day course upon discharge. We will follow with final sputum cultures. -Continue home inhaler therapy Trelegy 100 along with DuoNeb/albuterol every 6 hours on as-needed basis -Wean steroids prednisone 40 mg daily to complete a total of 5-day course upon discharge #Lung nodules: Greater than 11-lksf-htkz smoking history. CT scans available from December 2021 that showed bilateral diffuse emphysematous changes along with right lower lobe pulmonary nodule largest 1 being at 10 mm in size. No dense consolidation noted on that CT scan. No mediastinal or hilar lymphadenopathy noted. CT scan from this admission showed stable right upper lobe pleural-based nodule. The concerning right lower lobe pleural-based nodular to be slightly increased in size with air bronchograms concerning for airspace disease. Also noted to have bronchial thickening in the left lower lobe. No mediastinal or hilar lymphadenopathy noted Patient said that she received a CAT scan 4 yrs ago at [facility]. Plan: -Will follow the patient in the clinic as previously scheduled on Jan 14 -Will obtain imaging from [facility] for further comparison and will plan accordingly #Thank for involving pulmonary in this patient care. We will follow the patient in the clinic as previously scheduled. Additional testing needed at this point of time.
--- NOTE | 2022-01-07 09:53 | CARE MANAGER ---
Patient will need home Oxygen. Sent information to [facility].
--- NOTE | 2022-01-07 09:56 | DIET.NUTRFU ---
Patient plan to discharge home with daughter today. Her meal intake has been fair, she claims she only eats 1 meal/day at home. Encouraged her to add another protein in during day. made some high protein suggestions. No further discharge needs from dietary
[2022-01-07 12:40] LABS: Basophils # 0.2 K/mm3 (0-0.2); Basophils % 1.2 % (0.1-2.0); Eosinophils # 0.1 K/mm3 (0.0-0.4); Eosinophils % 0.8 % (0.1-12.0); Hematocrit 50.7 % (37.0-47.0); Hemoglobin 16.5 g/dL (12.2-16.2); Lymphocytes # 0.8 K/mm3 (0.7-4.5); Lymphocytes % 4.7 % (10-50); Mean Corpuscular HGB Conc 32.6 g/dL (31.8-35.4); Mean Corpuscular Hemoglobin 29.8 pg (27.0-31.2); Mean Corpuscular Volume 91.5 fl (81-99); Mean Platelet Volume 11.8 fl (7.4-10.4); Monocytes # 0.6 K/mm3 (0.1-1.0); Monocytes % 3.4 % (1.7-9.3); Neutrophils # 14.6 K/mm3 (1.8-7.8); Neutrophils % 89.8 % (37.0-80.0); Platelet Count 439 K/mm3 (142-424); Red Blood Count 5.54 M/mm3 (4.20-5.40); Red Cell Distribution Width 14.5 % (11.5-17.5); White Blood Count 16.2 K/mm3 (4.8-10.8)
[2022-01-07 12:44] LABS: MANUAL DIFFERENTIAL MANUAL DIFFERENTIAL (MANUAL DIFF)
[2022-01-07 13:22] LABS: Lymphocytes % 8 % (10-50); Monocytes % 2 % (2-9); Neutrophils % 90 % (42-76); Total Cells Counted 100
[2022-01-07 13:23] LABS: Burr Cells 1+
[2022-01-07 13:24] LABS: Platelet Estimate Normal
--- NOTE | 2022-01-10 14:22 | CARE MANAGER ---
Contacted patient related to follow up from hospital discharge. Patient states she is doing better but she still has desaturation of Oxygen level when she is up walking. She was able to obtain all her medications and is aware of her follow up appointments. Denies any questions or concerns at this time. VIKKI Cantu
== END 2022-01-07 10:45 | disposition home or self-care (01) ==
LOC: ER 09:46 → 2ND 11:52
PROVIDERS: Nurse Practitioner Family; Admitting Provider Family Medicine; Emergency Provider Emergency Medicine; PCP Emergency Medicine; Visit Provider Family Medicine
DX: J18.9 Pneumonia, unspecified organism (principal); Z28.310 Unvaccinated for COVID-19; F17.210 Nicotine dependence, cigarettes, uncomplicated; Z79.899 Other long term (current) drug therapy; R78.81 Bacteremia; B95.8 Unspecified staphylococcus as the cause of diseases classified elsewhere; J44.9 Chronic obstructive pulmonary disease, unspecified; Z20.822 Contact with and (suspected) exposure to COVID-19
CPT/HCPCS: G0378; 36415; 71045; 71250; 80048; 80053; 81001; 83605; 84484; 85007; 85025; 87040; 87070; 87077; 87186; 87205; 87486; 87581; 87632; 87798; 93005; 93306; 94640; 94761; 99285; C9803; J0456; J0574; J0696; J2405; U0003; U0005

== ENCOUNTER → 2022-02-03 14:22 | Outpatient (CLI) | payer MEDICARE, OTHER, SELFPAY ==
--- NOTE | 2022-02-03 14:25 | XR_ITS ---
FINAL REPORT CLINICAL HISTORY: pneumonia, smoker COMPARISON: January 05, 2022 FINDINGS: PA and lateral views of the chest were obtained. There is no prior exam for comparison. The cardiac and mediastinal silhouettes are within normal limits. There are changes of emphysema. Previously seen right upper lobe opacity has resolved. There is no pleural effusion or pneumothorax. No acute osseous abnormality is identified. IMPRESSION: Right upper lobe opacity has resolved. Reviewed, Interpreted and Dictated by Shalini Child MD Transcribed by Jade Epps Authenticated and [facility]
== END ==
PROVIDERS: PCP Emergency Medicine; Visit Provider Family Medicine
DX: R06.02 Shortness of breath (principal)
CPT/HCPCS: 71046

== ENCOUNTER 2022-02-04 10:43 | Emergency (ER) | payer MEDICARE, OTHER, SELFPAY ==
[2022-02-04] VITALS (13 sets, daily range): BP systolic 110–132; BP diastolic 69–91; PULSE 72–87; RESP 15–22; TEMP 36.6–36.9; O2SAT 93–97; BMI 28.8
--- NOTE | 2022-02-04 10:49 | ECG_ITS ---
APPROVED REPORT Exam: Resting ECG HR:90 bpm ECG Measurements Heart Rate 90 AXES AK 133 P 77 QRSd 81 QRS 79 QT 333 T 78 QTc 381 Conclusion SINUS RHYTHM POSSIBLE LEFT ATRIAL ENLARGEMENT [-0.1mV P-WAVE IN V1/V2] BORDERLINE ECG UNCONFIRMED REPORT Electronically signed by : Richie Orr MD 02/05/2022 08:02:11
--- NOTE | 2022-02-04 10:52 | HMH.EDGENADL ---
Discharge Plan Disposition Patient Disposition: Home, Self-Care Condition: Good Chief Complaint: Shortness of Breath/Dyspnea Prescriptions Prescriptions: No Action buprenorphine-naloxone 8-2 mg tablet, sublingual 2 tab SL DAILY nystatin 100,000 unit/mL suspension 600,000 unit PO TID 10 Days Qty: 180 0RF Rx Instructions: administer 1/2 of dose in each side of the mouth promethazine 25 mg tablet 25 mg PO Q12HP PRN (Reason: nausea and vomiting) Qty: 20 0RF cefdinir 300 mg capsule 300 mg PO BID 10 Days Qty: 20 0RF nicotine 21 mg/24 hr patch 24 hour 1 patch TD DAILY Qty: 28 6RF ipratropium-albuterol 0.5 mg-3 mg(2.5 mg base)/3 mL solution for nebulization 3 ml IH TID Qty: 90 10RF Rx Instructions: one vial in nebulizer tid. stop albuterol nebs azithromycin 500 mg tablet 500 mg PO DAILY 3 Days Qty: 3 0RF methylprednisolone [Medrol (Pranay)] 4 mg tablets,dose pack See Rx Instructions PO PER PKG DIR Qty: 21 0RF Rx Instructions: PO PER PKG DIR furosemide 40 mg tablet 40 mg PO DAILY Qty: 7 0RF atorvastatin 10 mg tablet See Rx Instructions .ROUTE .COMPLEX Qty: 90 0RF Dose Instruction: TAKE 1 TABLET 1 TIME EACH DAY AT BEDTIME Rx Instructions: TAKE 1 TABLET 1 TIME EACH DAY AT BEDTIME pregabalin 300 MG capsule 300 mg PO BID cholecalciferol (vitamin D3) 1,250 MCG capsule 1,250 mcg PO WEEKLY [id number] 1 EACH blister with device 1 inh IH DAILY albuterol sulfate 8.5 GM HFA aerosol inhaler 2 puff IH Q8HP PRN (Reason: shortness of breath or wheezing) Referrals Referrals: Haseeb Alejandro MD [Primary Care Provider] - Enter time for follow up Activity Restrictions/Add. Instructions Additional Instructions/Restrictions: Continue taking antibiotics and Medrol Dosepak as prescribed. See Dr. Alejandro in the office next week for follow-up. Clinical Impressions Clinical Impression: Acute exacerbation of chronic obstructive pulmonary disease Discharge ED Provider: Bart Prakash Adult [facility] General Chief complaint: Shortness of Breath/Dyspnea Stated complaint: SOA Time Seen by Provider: 02/04/22 11:15 History of Present Illness HPI narrative: Patient states that she is sent here by Dr. Alejandro for evaluation for possible admission. She says that she was admitted to this hospital, discharged earlier this month for pneumonia with bacterial infection in the blood from the staff. She says that since then she has been on oxygen, has had a persistent cough. However, over the past few days has worsened with increased cough and increased shortness of breath. Pulse ox drops into the 80s when she ambulates. She saw Dr. Alejandro in the office on Monday 3 days ago and was given an injection of Rocephin and Solu-Medrol. She was started on cefdinir, Zithromax, and Medrol Dosepak. She followed up in his office today and was sent to the emergency department for evaluation. Denies fever. Denies chest pain. Related Data Home Medications Medication Instructions Recorded Confirmed buprenorphine 8 mg-naloxone 2 mg 2 tab sublingual DAILY addiction 06/22/21 02/01/22 sublingual tablet cholecalciferol (vitamin D3) 1,250 1,250 mcg PO WEEKLY Supplement 01/05/22 02/01/22 mcg (50,000 unit) capsule fluticasone fur. 100 mcg-umeclid 1 inh inhalation DAILY COPD 01/05/22 02/01/22 62.5 mcg-vilant 25 mcg inhalat.powder pregabalin 300 mg capsule 300 mg PO BID NEUROPATHY 01/05/22 02/01/22 albuterol sulfate 90 mcg/actuation 2 puff inhalation Q8HP PRN 01/06/22 02/01/22 aerosol inhaler shortness of breath or wheezing Previous Rx's Medication Instructions Recorded furosemide 40 mg tablet 40 mg PO DAILY fluid retention #7 01/11/22 tabs nystatin 100,000 unit/mL oral 600,000 unit (6 mL) PO TID 10 days 01/14/22 suspension #180 mL atorvastatin 10 mg tablet See Rx Instructions .Route 01/17/22 .COMPLEX #90 tabs azithrom
--- NOTE | 2022-02-04 11:02 | XR_ITS ---
FINAL REPORT CLINICAL HISTORY: SOA COMPARISON: February 03, 2022 FINDINGS: SINGLE VIEW CHEST. The heart is normal in size. The mediastinum is unremarkable. There are some chronic changes in the lung bases. The lungs are otherwise clear. There is no pneumothorax. IMPRESSION: No acute process. Reviewed, Interpreted and Dictated by Donavan Lieberman MD Transcribed by Jade Epps Authenticated and [facility]
--- NOTE | 2022-02-04 11:10 | PC.NURSE ---
LAB CALLED TO COLLECT BLOOD , I WAS ONLY ABLE TO COLLECT 1 SET OF BLOOD CULTURES
[2022-02-04 11:23] LABS: Coronavirus 19, PCR Not Detected (NotDetected); Influenza A, PCR Not Detected (NotDetected); Influenza B, PCR Not Detected (NotDetected)
[2022-02-04 12:09] LABS: Basophils # 0.1 K/mm3 (0-0.2); Basophils % 0.8 % (0.1-2.0); Eosinophils # 0.1 K/mm3 (0.0-0.4); Eosinophils % 1.2 % (0.1-12.0); Hematocrit 44.9 % (37.0-47.0); Hemoglobin 14.1 g/dL (12.2-16.2); Lymphocytes # 1.2 K/mm3 (0.7-4.5); Lymphocytes % 15.7 % (10-50); Mean Corpuscular HGB Conc 31.5 g/dL (31.8-35.4); Mean Corpuscular Hemoglobin 28.3 pg (27.0-31.2); Mean Corpuscular Volume 89.9 fl (81-99); Mean Platelet Volume 8.2 fl (7.4-10.4); Monocytes # 0.2 K/mm3 (0.1-1.0); Monocytes % 2.6 % (1.7-9.3); Neutrophils % 79.6 % (37.0-80.0); Platelet Count 517 K/mm3 (142-424); Red Blood Count 4.99 M/mm3 (4.20-5.40); Red Cell Distribution Width 15.2 % (11.5-17.5); White Blood Count 7.6 K/mm3 (4.8-10.8)
[2022-02-04 12:13] LABS: Alanine Aminotransferase 45 U/L (12-78); Albumin Level 4.2 g/dl (3.5-5.0); Albumin/Globulin Ratio 1.1 (1.1-1.8); Alkaline Phosphatase 132 U/L (38-126); Anion Gap 9.5 mEq/L (5-15); Aspartate Amino Transferase 41 U/L (14-36); Bilirubin,Total 0.3 mg/dl (0.2-1.3); Blood Urea Nitrogen 10 mg/dl (7-17); Calcium 9.7 mg/dl (8.4-10.2); Carbon Dioxide 29 mmol/L (22.0-30.0); Chloride 104 mmol/L (98-107); Creatinine Clearance Estimated 69 mL/min (50-200); Estimated Glomerular Filt Rate 124 ml/min (>60); GFR (African American) 150 ML/MIN (>60); Globulin 3.7 g/dL (1.3-3.2); Glucose 118 mg/dl (74-100); Potassium 4.5 mmoL/L (3.5-5.1); Sodium 138 mmol/L (136-145); Total Protein,Serum 7.9 g/dl (6.3-8.2)
[2022-02-04 12:14] LABS: Lactic Acid 0.7 mmol/L (0.7-2.1)
[2022-02-04 12:26] LABS: Troponin I < 0.01 ng/ml (0.00-0.034)
--- NOTE | 2022-02-04 12:51 | PC.NURSE ---
rounded on pt at this time, pt given warm blanket, pt requesting something to drink. Will ask ER MD and let pt know
--- NOTE | 2022-02-04 12:53 | PC.NURSE ---
GAIL VÁZQUEZ at
--- NOTE | 2022-02-04 12:55 | PC.NURSE ---
GAIL VÁZQUEZ speaking with Dr. Alejandro pt given pop, okayed per GAIL VÁZQUEZ
--- NOTE | 2022-02-04 12:55 | PC.NURSE ---
pt given soft drink per request
== END 2022-02-04 14:26 | disposition home or self-care (01) ==
PROVIDERS: Emergency Provider Emergency Medicine; PCP Family Medicine
DX: J44.1 Chronic obstructive pulmonary disease with (acute) exacerbation (principal); F17.210 Nicotine dependence, cigarettes, uncomplicated; Z20.822 Contact with and (suspected) exposure to COVID-19; Z79.51 Long term (current) use of inhaled steroids; Z79.52 Long term (current) use of systemic steroids; Z79.899 Other long term (current) drug therapy
CPT/HCPCS: 71045; 80053; 83605; 84484; 85025; 87040; 93005; 96374; 96375; 99284; C9803; J0696; U0003; U0005

== ENCOUNTER → 2022-02-21 13:55 | Outpatient (CLI) | payer MEDICARE, OTHER, SELFPAY ==
[2022-02-21 14:30] VITALS: PULSE 80; PULSE 84
== END ==
PROVIDERS: PCP Family Medicine; Visit Provider Internal Medicine Pulmonary Disease
DX: R06.09 Other forms of dyspnea (principal)
CPT/HCPCS: 94060; 94618; 94640; 94727; 94729

== ENCOUNTER → 2022-03-18 11:02 | Outpatient (CLI) | payer MEDICARE, OTHER, SELFPAY | PROVIDERS: PCP Emergency Medicine; Visit Provider Emergency Medicine | DX: R06.09 Other forms of dyspnea (principal) | CPT/HCPCS: 94762 ==

== ENCOUNTER → 2022-05-10 10:37 | Outpatient (CLI) | payer MEDICARE, OTHER, SELFPAY ==
--- NOTE | 2022-05-10 10:37 | CT_ITS ---
FINAL REPORT TECHNIQUE: Axial imaging of the chest was obtained without intravenous contrast administration. Low dose screening protocol was utilized. CLINICAL HISTORY: F/u nodule COMPARISON: 01/06/2022 FINDINGS: Right lower lobe nodule seen on image number 197 measures 10 mm was obscured by atelectasis/resolving pneumonia on prior exam. There is a subpleural nodule in the right middle lobe measuring 8 mm well seen on image number 179, previously measured 6 mm. There is moderate underlying emphysema. There is mild bibasilar scarring. There is no evidence of adenopathy or effusion. IMPRESSION: Right lung base sub cm nodules, one possibly increased in size since prior. Findings are indeterminate, may be neoplastic or inflammatory. Severe emphysema. Recommend chest CT follow-up in 6 months. Reviewed, Interpreted and Dictated by Momo Floyd MD Transcribed by Jolly Jerez Authenticated and [facility]
== END ==
PROVIDERS: PCP Emergency Medicine; Visit Provider Internal Medicine Pulmonary Disease
DX: R91.8 Other nonspecific abnormal finding of lung field (principal)
CPT/HCPCS: 71250

== ENCOUNTER 2022-05-27 19:10 | Inpatient (IN) | payer MEDICARE, OTHER, SELFPAY ==
[2022-05-27] VITALS (10 sets, daily range): BP systolic 129–180; BP diastolic 64–93; PULSE 74–92; RESP 18–22; TEMP 36.6–37.4; O2SAT 80–99; BMI 28.8
--- NOTE | 2022-05-27 19:58 | XR_ITS ---
PROCEDURE INFORMATION: Exam: XR Chest Exam date and time: 05/27/2022 8:13 PM Age: 66 years old Clinical indication: Shortness of breath; Additional info: Short of air TECHNIQUE: Imaging protocol: Radiologic exam of the chest. Views: 2 views. COMPARISON: CR XR CHEST PORTABLE 02/04/2022 11:[address] January 06, 2022. FINDINGS: Lungs: Patchy opacity in the right lower lobe. In the left lung base there is a rounded density measuring 1.2 cm. This may have been present on the previous exam. There is also a vague nodular density at the right lung base which appears stable. Pleural spaces: Unremarkable. No pleural effusion. No pneumothorax. Heart/Mediastinum: Unremarkable. No cardiomegaly. Bones/joints: Unremarkable. IMPRESSION: Developing infiltrate at the left lung base. Possible new left basilar nodule which requires follow-up. Consider chest CT for further evaluation.
--- NOTE | 2022-05-27 20:14 | ECG_ITS ---
APPROVED REPORT Exam: Resting ECG HR:84 bpm ECG Measurements Heart Rate 84 AXES QRSd 84 QRS 83 QT 340 T 89 QTc 381 Conclusion NSR with short NH interval MINIMAL ST DEPRESSION [0.025+ mV ST DEPRESSION] ABNORMAL RHYTHM ECG UNCONFIRMED REPORT Electronically signed by : Richie Orr MD 05/28/2022 12:51:28
[2022-05-27 20:27] LABS: Microscopic, Urine URINE MICROSCOPIC (MICROSCOPIC)
[2022-05-27 20:27] LABS: Coronavirus 19, PCR Not Detected (NotDetected); Influenza B, PCR Not Detected (NotDetected)
[2022-05-27 20:32] LABS: Appearance,Urine CLEAR (Clear); Blood, Urine 3+ (Negative); Color,Urine DK YELLOW (Yellow); Glucose,Urine (UA) Negative (Negative); Ketones,Urine Negative (Negative); Leukocyte Esterase,Urine TRACE (Negative); Nitrate,Urine POSITIVE (Negative); Protein,Urine 3+ (Negative); Specific Gravity, Urine 1.025 (1.005-1.030)
[2022-05-27 20:33] LABS: Basophils # 0.2 K/mm3 (0-0.2); Basophils % 2.3 % (0.1-2.0); Eosinophils % 0.1 % (0.1-12.0); Hemoglobin 15.1 g/dL (12.2-16.2); Lymphocytes # 1.1 K/mm3 (0.7-4.5); Lymphocytes % 15.1 % (10-50); Mean Corpuscular HGB Conc 32.8 g/dL (31.8-35.4); Mean Corpuscular Hemoglobin 28.6 pg (27.0-31.2); Mean Corpuscular Volume 87.3 fl (81-99); Mean Platelet Volume 8.5 fl (7.4-10.4); Monocytes # 0.4 K/mm3 (0.1-1.0); Neutrophils # 5.3 K/mm3 (1.8-7.8); Neutrophils % 76.6 % (37.0-80.0); Platelet Count 276 K/mm3 (142-424); Red Blood Count 5.27 M/mm3 (4.20-5.40); Red Cell Distribution Width 14.2 % (11.5-17.5)
--- NOTE | 2022-05-27 20:39 | HMH.EDSOB ---
Discharge Plan Disposition Patient Disposition: Admitted As Inpatient Chief Complaint: Shortness of Breath/Dyspnea Clinical Impressions Clinical Impression: Acute exacerbation of chronic obstructive pulmonary disease, Tobacco use, Respiratory failure with hypoxia, Influenza Discharge ED Provider: Dave Kidd Resp/SOB HPI General Chief Complaint: Shortness of Breath/Dyspnea Stated Complaint: COPD SOB Time Seen by Provider: 05/27/22 20:39 Mode of Arrival: Wheelchair Source of Information: Patient, Relative and Medical Record Limitations: No Limitations Description of Symptoms (Recalled from ER Triage Doc. by RN): pt c/o SOB and has been exposed to flu and adno in the past week. the pt normaly wears 2 of o2 prn for copd the pt daughter reports that they bumped her up to 4l to get her on up to 90 because she couldnt get up above 80 History of Present Illness pt with hx of copd and uses o2 at times - with exposure to virus and increased sx at this time MD Complaint: shortness of breath Onset (ago): day(s) Severity: moderate Known history of: COPD Associated symptoms: cough and wheezing Treatment prior to arrival: oxygen and bronchodilator Related Data Home oxygen amount: 2 liters Home Medications Medication Instructions Recorded Confirmed buprenorphine 8 mg-naloxone 2 mg 2 tab sublingual DAILY addiction 06/22/21 05/27/22 sublingual tablet cholecalciferol (vitamin D3) 1,250 1,250 mcg PO WEEKLY Supplement 01/05/22 05/27/22 mcg (50,000 unit) capsule albuterol sulfate 90 mcg/actuation 2 puff inhalation Q8HP PRN 01/06/22 05/27/22 aerosol inhaler shortness of breath or wheezing atorvastatin 10 mg tablet 10 mg PO DAILY hld 05/27/22 05/27/22 fluticasone fur. 100 mcg-umeclid 1 inh inhalation DAILY COPD 05/27/22 05/27/22 62.5 mcg-vilant 25 mcg inhalat.powder (Trelegy Ellipta) ipratropium 0.5 mg-albuterol 3 mg 3 ml inhalation TID COPD 05/27/22 05/27/22 (2.5 mg base)/3 mL nebulization soln promethazine 25 mg tablet 25 mg PO Q4-6H PRN Nausea 05/27/22 05/27/22 Previous Rx's Medication Instructions Recorded pregabalin 300 mg capsule 300 mg PO BID NEUROPATHY #60 caps 03/02/22 Allergies Allergy/AdvReac Type Severity Reaction Status Date / Time No Known Allergies Allergy Verified 05/13/22 11:26 [facility] Disclaimer: The information contained in this section may have been updated after the patient was seen, as this information can be updated by other users. Medical History (Updated 05/27/22 @ 22:49 by Demetrio Wells DNP) Bronchiectasis without complication Candidiasis of mouth Chronic pain Community acquired pneumonia COPD (chronic obstructive pulmonary disease) Dyspnea on exertion Fibromyalgia Multiple pulmonary nodules Pulmonary emphysema Tobacco abuse counseling Tobacco abuse disorder Surgical History History of total hysterectomy History of tubal ligation Hx of cholecystectomy Family History Other No significant family history Social History Smoking Status: Current every day smoker tobacco type: cigarettes packs per day: 1 alcohol intake: never substance use type: former substance user, opiates and painkillers current occupational status: retired Travel in the last 8 weeks: None household members: family housing: house ROS Obtained: Yes All systems reviewed & no additional complaints except as documented Physical Exam General General appearance: alert Head Head exam: normocephalic Eye Eye exam: Present PERRL and EOMI ENT ENT exam: Present mucous membranes moist Neck Neck exam: Present trachea midline Respiratory Respiratory exam: Present wheezes; Absent respiratory distress Cardiovascular Cardiovascular exam: Present regular rate, systolic murmur and +S4 Abdominal Exam Abdominal exam: Present soft Extremities Ex
[2022-05-27 20:40] LABS: Alanine Aminotransferase 31 U/L (12-78); Albumin Level 4.2 g/dl (3.5-5.0); Albumin/Globulin Ratio 1.3 (1.1-1.8); Alkaline Phosphatase 110 U/L (38-126); Anion Gap 11.3 mEq/L (5-15); Aspartate Amino Transferase 59 U/L (14-36); Bilirubin,Total 0.4 mg/dl (0.2-1.3); Blood Urea Nitrogen 10 mg/dl (7-17); Calcium 8.8 mg/dl (8.4-10.2); Carbon Dioxide 31 mmol/L (22.0-30.0); Chloride 96 mmol/L (98-107); Creatinine Clearance Estimated 69 mL/min (50-200); Estimated Glomerular Filt Rate 84 ml/min (>60); GFR (African American) 102 ML/MIN (>60); Globulin 3.3 g/dL (1.3-3.2); Glucose 114 mg/dl (74-100); Potassium 3.3 mmoL/L (3.5-5.1); Sodium 135 mmol/L (136-145); Total Protein,Serum 7.5 g/dl (6.3-8.2)
[2022-05-27 20:51] LABS: Troponin I 0.02 ng/ml (0.00-0.034)
[2022-05-27 20:54] LABS: Bilirubin,Urine Negative (Negative)
[2022-05-27 20:55] LABS: Bacteria,Urine 2+ /lpf; WBC,Urine Occasional #/hpf (0-3)
--- NOTE | 2022-05-27 20:58 | PC.NURSE ---
RT at BS to administer breathing treatment
[2022-05-27 21:01] LABS: ABG HCO3 28.5 mmhg (22.0-26.0); ABG Oxygen Saturation 90 % (90-100); ABG PCO2 45.5 mmhg (35.0-45.0); ABG PH 7.42 mmol/L (7.35-7.45); ABG PO2 57.1 mmhg (80-100); ABG TCO2 29.9 mmhg (23-27); Allen's Test Acceptable; Source Left Radial
[2022-05-27 21:14] LABS: NT Pro Brain Natriuretic Pep. 74.6 pg/mL (0-125)
--- NOTE | 2022-05-27 21:16 | PC.NURSE ---
RESP CARE NOTE PT WAS GIVEN SODIUM CHLORIDE NEB DIDNT COUGH UP ANYTHING. LEFT PT WITH SPUTUM CUP.
[2022-05-27 21:43] LABS: Influenza A, PCR Detected (NotDetected)
--- NOTE | 2022-05-27 22:19 | PC.NURSE ---
Called house for bed assignment
--- NOTE | 2022-05-27 22:35 | EXP.HP ---
History of Present Illness *Admission Date: 05/27/22 *Reason for visit:: Shortness of air, cough, fevers, body aches *History of present illness: Ms. Luo is a 66-year-old female with a past medical history of COPD, home oxygen dependent, chronic tobacco use, Chronic Back Pain, Fibromyalgia, Hyperlipidemia. She presents to [facility] due to cough, shortness of air, fevers and generalized body aches for the last few days prior to presentation. She reports similar sick contacts over the last week with someone with tested positive for Flu and Adenovirus. She reports that she has been taking Tylenol over the counter with no improvement in symptoms and she has a pulse ox at home and has not been able to keep her oxygenation above the 80's so she went up to 4L. In the ER, the patient tested positive for Influenza. Cxray was concerning for a developing infiltrate in the lung lung base and a left basilar lung nodule. ABG showed a moderate hypoxemia on 4L with a pO2 of 57.1, spO2 was 90% on the 4L. The patient will be admitted with initial impression: Acute on Chronic Hypoxic Respiratory Failure, Acute Exacerbation of COPD and Influenza A. She will be placed on nebulizers, Tamiflu, placed on Doxycycline for AECOPD. Oxygenation will be monitored. A full respiratory panel will be ordered given history. The plan of care was discussed in length and detail with patient and her daughter on admission in the ER. Both verbalized understanding and agreement with the plan of care. [facility] Disclaimer: The information contained in this section may have been updated after the patient was seen, as this information can be updated by other users. Medical History Bronchiectasis without complication Candidiasis of mouth Chronic pain Community acquired pneumonia COPD (chronic obstructive pulmonary disease) Dyspnea on exertion Fibromyalgia Multiple pulmonary nodules Pulmonary emphysema Tobacco abuse counseling Tobacco abuse disorder Surgical History History of total hysterectomy History of tubal ligation Hx of cholecystectomy Family History Other No significant family history Social History (Updated 05/27/22 @ 23:50 by Bárbara Avila RN) Smoking Status: Current every day smoker tobacco type: cigarettes packs per day: 1 alcohol intake: never substance use type: former substance user, opiates and painkillers current occupational status: retired Travel in the last 8 weeks: None household members: family housing: house Review of Systems Review of Systems Review of systems:: pertinent systems reviewed and negative unless documented below Constitutional Constitutional: Reports fatigue, Reports fever(s) and Reports lethargy Eyes Eyes: Reports system reviewed and no additional complaints, except as documented ENT Ears, Nose, Mouth, and Throat: Reports system reviewed and no additional complaints, except as documented *Cardiovascular Cardiovascular: Reports system reviewed and no additional complaints, except as documented and Reports dyspnea *Respiratory Respiratory: Reports chest congestion, Reports cough and Reports dyspnea *Gastrointestinal Gastrointestinal: Reports system reviewed and no additional complaints, except as documented *Genitourinary Genitourinary: Reports system reviewed and no additional complaints, except as documented *Musculoskeletal Musculoskeletal: Reports muscle weakness and Reports myalgias Integumentary/Breasts Skin/Breast: Reports system reviewed and no additional complaints, except as documented *Neurologic Neurologic: Reports system reviewed and no additional complaints, except as documented Psychiatric Psychiatric: Reports system reviewed and no additional complaints, except as documented Endocrine Endocrine: Reports fatigue Hematologi
[2022-05-27 22:43] LABS: Adenovirus,PCR Not Detected (NotDetected); Bordetella Pertussis Not Detected (NotDetected); Chlamydophila Pneumoniae, PCR Not Detected (NotDetected); Coronavirus 19, PCR Not Detected (NotDetected); Coronavirus 229E Not Detected (NotDetected); Coronavirus NL63 Not Detected (NotDetected); Coronavirus OC43 Not Detected (NotDetected); Coronovirus HKU1,PCR Not Detected (NotDetected); Human Metapneumovirus Not Detected (NotDetected); Influenza A, PCR Not Detected (NotDetected); Influenza AH1, PCR Not Detected (NotDetected); Influenza AH3,PCR Not Detected (NotDetected); Influenza B, PCR Not Detected (NotDetected); Mycoplasma Pneumoniae, PCR Not Detected (NotDetected); Parainfluenza 1, PCR Not Detected (NotDetected); Parainfluenza 2, PCR Not Detected (NotDetected); Parainfluenza 3, PCR Not Detected (NotDetected); Parainfluenza 4, PCR Not Detected (NotDetected); Respiratory Syncytial Virus Not Detected (NotDetected); Rhinovirus/Enterovirus Not Detected (NotDetected)
--- NOTE | 2022-05-27 23:20 | PC.NURSE ---
pt arrived via wheelchair @ [id number]
[2022-05-27 23:31] LABS: Troponin I 0.01 ng/ml (0.00-0.034)
[2022-05-28] VITALS (13 sets, daily range): BP systolic 109–126; BP diastolic 46–67; PULSE 65–87; RESP 17–20; TEMP 36.4–36.6; O2SAT 89–93
[2022-05-28 02:15] LABS: Influenza AH1, 2009 Detected (NotDetected)
[2022-05-28 02:16] LABS: Troponin I < 0.01 ng/ml (0.00-0.034)
--- NOTE | 2022-05-28 02:21 | PC.NURSE ---
LAB REPORTS RESP PANE H1N1. PATIENT ALREADY IN DROPLET ISOL
--- NOTE | 2022-05-28 03:42 | PC.NURSE ---
RENEA DAAIR NOTIFIED RE PATIENT'S 02 SATS 88% ON 6LNC. PLANS TO ORDER ABGs.
[2022-05-28 03:56] LABS: ABG Base Excess 3.5 mmol/L (-2.4-2.3); ABG HCO3 28.6 mmhg (22.0-26.0); ABG Oxygen Saturation 90 % (90-100); ABG PCO2 49.5 mmhg (35.0-45.0); ABG PH 7.38 mmol/L (7.35-7.45); ABG PO2 58.4 mmhg (80-100); ABG TCO2 30.1 mmhg (23-27); Allen's Test Acceptable; Oxygen 6lpm %; Source Right Radial
[2022-05-28 10:06] LABS: Basophils % 1.1 % (0.1-2.0); Eosinophils % 0.5 % (0.1-12.0); Hemoglobin 14.6 g/dL (12.2-16.2); Lymphocytes # 0.8 K/mm3 (0.7-4.5); Lymphocytes % 19.4 % (10-50); Mean Corpuscular HGB Conc 33.9 g/dL (31.8-35.4); Mean Corpuscular Hemoglobin 28.6 pg (27.0-31.2); Mean Corpuscular Volume 84.4 fl (81-99); Mean Platelet Volume 8.5 fl (7.4-10.4); Monocytes # 0.2 K/mm3 (0.1-1.0); Monocytes % 5.7 % (1.7-9.3); Neutrophils % 73.3 % (37.0-80.0); Platelet Count 252 K/mm3 (142-424); Red Cell Distribution Width 14.3 % (11.5-17.5); White Blood Count 4.1 K/mm3 (4.8-10.8)
[2022-05-28 10:11] LABS: Chloride 98 mmol/L (98-107)
[2022-05-28 10:12] LABS: Potassium 3.5 mmoL/L (3.5-5.1); Sodium 135 mmol/L (136-145)
[2022-05-28 10:14] LABS: Blood Urea Nitrogen 10 mg/dl (7-17); Creatinine Clearance Estimated 72 mL/min (50-200); Estimated Glomerular Filt Rate 124 ml/min (>60); GFR (African American) 150 ML/MIN (>60)
[2022-05-28 10:15] LABS: Anion Gap 10.5 mEq/L (5-15); Calcium 8.8 mg/dl (8.4-10.2); Carbon Dioxide 30 mmol/L (22.0-30.0); Glucose 146 mg/dl (74-100)
--- NOTE | 2022-05-28 12:21 | EXP.ACUTE.PN ---
Subjective *Date: 05/28/22 *Time: 12:46 Interval history: Still requiring 6 L oxygen. Reports she wears 2 L most of the time at home when she is short of breath, over half the day every day. Cough mildly productive. Remains afebrile. Tolerating p.o. intake. No vomiting but does complain of nausea. Denies chest pain or confusion. Medical Exam Vital signs and Labs for Last 24 Hours: Vital Signs Temp Pulse Pulse Resp BP BP Pulse Ox 05/28/22 10:57 97.7 F 71 17 119/56 L 91 L 05/28/22 07:41 97.6 F 73 17 126/58 L 92 L 05/28/22 06:26 69 05/28/22 06:26 68 05/28/22 06:26 90 L 05/28/22 04:00 97.8 F 70 20 123/66 90 L 05/28/22 00:00 90 L 05/28/22 00:02 87 05/28/22 00:02 85 05/27/22 23:43 98.6 F 74 22 129/65 91 L 05/27/22 23:09 98 F 80 18 131/64 05/27/22 23:01 79 131/64 91 L 05/27/22 22:31 79 180/85 H 91 L 05/27/22 20:06 80 L 05/27/22 21:01 87 158/93 H 92 L 05/27/22 20:30 86 154/90 H 90 L 05/27/22 20:07 91 H 144/76 H 90 L 05/27/22 21:15 90 05/27/22 21:15 87 05/27/22 21:15 93 L 05/27/22 19:42 99.3 F 92 H 22 152/77 H 91 L Intake and Output 05/27/22 05/28/22 05/28/22 23:59 07:59 15:59 Intake Total 60 / 60 290 / 290 Output Total 0 / 0 Balance 60 / 60 290 / 290 0 / 290 Intake: Intake, Oral Amount 60 / 60 240 / 240 Intake, Total IV Amount 50 / 50 Magnesium Sulfate in Water 2 gm 50 / 50 In 50 ml @ 50 mls/hr IV ONCE ONE Rx#:[id number] Output: Output, Urine Amount 0 / 0 Other: Number of Unmeasured Voids 1 Weight 81.817 kg 81.8 kg Patient Weight 05/28/22 23:59 Weight 81.8 kg Laboratory Results - last 24 hr 05/27/22 20:08: WBC 7.0, RBC 5.27, Hgb 15.1, Hct 46.0, MCV 87.3, MCH 28.6, MCHC 32.8, RDW 14.2, Plt Count 276, MPV 8.5, Neut % (Auto) 76.6, Lymph % (Auto) 15.1, [place] % (Auto) 6.0, Eos % (Auto) 0.1, Baso % (Auto) 2.3 H, Neut # (Auto) 5.3, Lymph # (Auto) 1.1, [place] # (Auto) 0.4, Eos # (Auto) 0.0, Baso # (Auto) 0.2 05/27/22 20:08: Sodium 135 L, Potassium 3.3 L, Chloride 96 L, Carbon Dioxide 31 H, Anion Gap 11.3, BUN 10, Creatinine 0.70, Estimated Creat Clear 69, Estimated GFR 84, Est GFR ( Amer) 102, Glucose 114 H, Calcium 8.8, Total Bilirubin 0.4, AST 59 H, ALT 31, Alkaline Phosphatase 110, Troponin I 0.02, Total Protein 7.5, Albumin 4.2, Globulin 3.3 H, Albumin/Globulin Ratio 1.3 05/27/22 20:08: Lactate 1.0 05/27/22 20:08: NT-Pro-B Natriuret Pep 74.6 05/27/22 20:10: SARS-CoV-2 (PCR) Not detected, Influenza A Untype (PCR) Detected A, Influenza Type B (PCR) Not detected 05/27/22 20:10: Chlamy pneumoniae PCR Not detected, Adenovirus (PCR) Not detected, B. pertussis DNA (PCR) Not detected, Coronavirus OC43 (PCR) Not detected, Coronavirus HKU1 (PCR) Not detected, Coronavirus 229E (PCR) Not detected, SARS-CoV-2 (PCR) Not detected, Coronavirus NL63 (PCR) Not detected, Human Metapneumovir PCR Not detected, Influenza A (H1) PCR Not detected, Influ A (H1N1/09) PCR Detected A, Influenza A (H3) PCR Not detected, Influenza Type A (PCR) Not detected, Influenza Type B (PCR) Not detected, M. pneumoniae (PCR) Not detected, Parainfluenza 1 (PCR) Not detected, Parainfluenza 2 (PCR) Not detected, Parainfluenza 3 (PCR) Not detected, Parainfluenza 4 (PCR) Not detected, RSV (PCR) Not detected, Entero/Rhino (PCR) Not detected 05/27/22 20:20: Urine Color Dk yellow, Urine Appearance Clear, Urine pH 6.0, Ur Specific [place] 1.025, Urine Protein 3+, Urine Glucose (UA) Negative, Urine Ketones Negative, Urine Blood 3+, Urine Nitrate Positive, Urine Bilirubin Negative, Urine Urobilinogen 1.0, Ur Leukocyte Esterase Trace, Urine WBC Occasional, Ur Squamous Epith Cells 3-5, Urine Bacteria 2+ 05/27/22 20:44: Specimen Source Left radial, O2 % 4lpm, ABG pH 7.42, ABG pCO2 45.5 H, ABG pO2 57.1 L, ABG HCO3 28.5 H, ABG Total CO2 29.9 H, ABG O2 Saturation 90, ABG Base E
--- NOTE | 2022-05-28 18:12 | PC.NURSE ---
SHE HAS REQUIRED 6LNC THIS SHIFT FOR O2 SUPPORT. SHE DID C/O NAUSEA ONCE THIS SHIFT AND WAS TREATED WITH PRN PROMETHAZINE WITH GOOD EFFECTIVENESS. SHE HAS RESTED IN BED FOR MOST OF SHIFT.
[2022-05-29] VITALS (12 sets, daily range): BP systolic 103–155; BP diastolic 52–75; PULSE 68–89; RESP 17–20; TEMP 36.4–36.6; O2SAT 89–95; BMI 30.2; BMI 30.1
--- NOTE | 2022-05-29 06:14 | PC.NURSE ---
PATIENT REPORTS NAUSEA AT 2140 AND RECEIVED PHENERGAN 25 MG PO. NO NAUSEA OR PAIN REPORTED. 02 SATS 95% ON 6 LNC-HUMIDIFIED. REMAINS ON DROPLET PRECAUTIONS FOR FLU A. PERFORMED 1500 ON INCENTIVE SPIROMETER.
[2022-05-29 07:30] LABS: Basophils # 0.3 K/mm3 (0-0.2); Basophils % 3.6 % (0.1-2.0); Eosinophils % 0.3 % (0.1-12.0); Hematocrit 46.2 % (37.0-47.0); Hemoglobin 14.9 g/dL (12.2-16.2); Lymphocytes % 27.5 % (10-50); Mean Corpuscular HGB Conc 32.3 g/dL (31.8-35.4); Mean Corpuscular Hemoglobin 28.2 pg (27.0-31.2); Mean Corpuscular Volume 87.3 fl (81-99); Mean Platelet Volume 8.5 fl (7.4-10.4); Monocytes # 0.5 K/mm3 (0.1-1.0); Neutrophils # 4.4 K/mm3 (1.8-7.8); Neutrophils % 61.6 % (37.0-80.0); Platelet Count 272 K/mm3 (142-424); Red Blood Count 5.29 M/mm3 (4.20-5.40); Red Cell Distribution Width 14.2 % (11.5-17.5); White Blood Count 7.1 K/mm3 (4.8-10.8)
[2022-05-29 07:35] LABS: Chloride 100 mmol/L (98-107); Sodium 140 mmol/L (136-145)
[2022-05-29 07:38] LABS: Anion Gap 8.9 mEq/L (5-15); Blood Urea Nitrogen 12 mg/dl (7-17); Calcium 9.4 mg/dl (8.4-10.2); Carbon Dioxide 34 mmol/L (22.0-30.0); Creatinine Clearance Estimated 73 mL/min (50-200); Estimated Glomerular Filt Rate 124 ml/min (>60); GFR (African American) 150 ML/MIN (>60); Glucose 96 mg/dl (74-100); Magnesium 1.9 mg/dl (1.6-2.3)
[2022-05-29 07:39] LABS: Potassium 2.9 mmoL/L (3.5-5.1)
--- NOTE | 2022-05-29 07:42 | PC.NURSE ---
critical potassium notification from lab. name and verified. dr rivera made aware
--- NOTE | 2022-05-29 08:59 | EXP.ACUTE.PN ---
Subjective *Date: 05/29/22 *Time: 10:18 Interval history: Attempt to wean oxygen this morning, intolerant of dropping to 4 L. Continues to require 6 L nasal cannula. Having some mild nausea. Denies chest pain, confusion, headache. Medical Exam Vital signs and Labs for Last 24 Hours: Vital Signs Temp Pulse Pulse Resp BP Pulse Ox 05/29/22 07:57 90 L 05/29/22 07:49 89 20 05/29/22 07:49 89 05/29/22 07:27 84 20 05/29/22 07:27 84 05/29/22 07:27 94 L 05/29/22 07:29 97.7 F 74 17 103/52 L 94 L 05/29/22 04:00 97.6 F 68 18 108/63 L 95 05/28/22 23:39 97.8 F 65 18 111/46 L 93 L 05/28/22 23:37 74 05/28/22 23:37 71 05/28/22 20:00 90 L 05/28/22 20:00 97.7 F 66 20 114/53 L 90 L 05/28/22 18:38 74 05/28/22 18:38 74 05/28/22 15:18 97.6 F 74 17 109/67 L 93 L 05/28/22 12:28 71 05/28/22 12:28 77 05/28/22 12:28 89 L 05/28/22 10:57 97.7 F 71 17 119/56 L 91 L Intake and Output 05/28/22 05/29/22 05/29/22 23:59 07:59 15:59 Intake Total 240 / 1010 360 / 360 Balance 240 / 1010 360 / 360 Intake: Intake, Oral Amount 240 / 960 360 / 360 Other: Number of Unmeasured Voids 1 Weight 82.129 kg Patient Weight 05/29/22 23:59 Weight 82.129 kg Laboratory Results - last 24 hr 05/28/22 09:59: WBC 4.1 L D, RBC 5.10, Hgb 14.6, Hct 43.0, MCV 84.4, MCH 28.6, MCHC 33.9, RDW 14.3, Plt Count 252, MPV 8.5, Neut % (Auto) 73.3, Lymph % (Auto) 19.4, [place] % (Auto) 5.7, Eos % (Auto) 0.5, Baso % (Auto) 1.1, Neut # (Auto) 3.0, Lymph # (Auto) 0.8, [place] # (Auto) 0.2, Eos # (Auto) 0.0, Baso # (Auto) 0.0 05/28/22 09:59: Sodium 135 L, Potassium 3.5, Chloride 98, Carbon Dioxide 30, Anion Gap 10.5, BUN 10, Creatinine 0.50 L D, Estimated Creat Clear 72, Estimated GFR 124, Est GFR ( Amer) 150 D, Glucose 146 H D, Calcium 8.8, Magnesium 2.0 05/29/22 07:09: Sodium 140, Potassium 2.9 L*, Chloride 100, Carbon Dioxide 34 H, Anion Gap 8.9, BUN 12, Creatinine 0.50 L, Estimated Creat Clear 73, Estimated GFR 124, Est GFR ( Amer) 150, Glucose 96 D, Calcium 9.4, Magnesium 1.9 05/29/22 07:09: WBC 7.1 D, RBC 5.29, Hgb 14.9, Hct 46.2, MCV 87.3, MCH 28.2, MCHC 32.3, RDW 14.2, Plt Count 272, MPV 8.5, Neut % (Auto) 61.6, Lymph % (Auto) 27.5, [place] % (Auto) 7.0, Eos % (Auto) 0.3, Baso % (Auto) 3.6 H, Neut # (Auto) 4.4, Lymph # (Auto) 2.0, [place] # (Auto) 0.5, Eos # (Auto) 0.0, Baso # (Auto) 0.3 H I & O for Labs for Last 24 Hours: Intake & Output 05/26/22 05/27/22 05/28/22 05/29/22 23:59 23:59 23:59 23:59 Intake Total 60 890 / 1010 360 / 360 Output Total 0 / 0 Balance 60 890 / 1010 360 / 360 Weight 81.817 kg 81.8 kg 82.129 kg Microbiology Reports for the Last 24 Hours: Microbiology 05/27/22 20:20 Urine,Clean Catch Urine Culture - Preliminary Constitutional: Present no acute distress, obese and chronically ill appearing Head: Present atraumatic and normocephalic ENT: Present normal exam Respiratory: Present accessory muscle use, wheezes, crackles and diminished air movement; Absent rhonchi Cardiac: Present Reg Rate and Rhythm GI: Present normal bowel sounds; Absent tenderness Extremities: Present normal inspection and full ROM Skin: Present intact; Absent erythema Neuro: Present Grossly Intact, alert, awake, oriented x 3 and moves all extremities Assessment and Plan *Assessment and plan (1) Acute and chronic respiratory failure with hypoxia: Status: Acute Category: Medical Code(s): J96.21 - Acute and chronic respiratory failure with hypoxia (2) Hypokalemia: Status: Acute Category: Medical Code(s): E87.6 - Hypokalemia (3) Influenza: Status: Acute Category: Medical Code(s): J11.1 - Influenza due to unidentified influenza virus with other respiratory manifestations (4) COPD exacerbation: Status: Acute Category: Medical
--- NOTE | 2022-05-29 15:22 | PC.NURSE ---
PT IS AOX4, ATTEMPTED TO WEAN O2 FROM 6LNC TO 5LNC BUT PT WAS UNABLE TO TOLERATE AND QUICKLY DROPPED BELOW 88%. SHE DID REQUEST PROMETHAZINE THIS MORNING FOR NAUSEA WHICH ALLEVIATED HER SYMPTOMS. SHE HAS VOICED NO OTHER COMPLAINTS TO THIS RN.
[2022-05-29 18:43] LABS: Blood Urea Nitrogen 14 mg/dl (7-17); Calcium 9.7 mg/dl (8.4-10.2); Carbon Dioxide 30 mmol/L (22.0-30.0); Chloride 101 mmol/L (98-107); Creatinine Clearance Estimated 73 mL/min (50-200); Estimated Glomerular Filt Rate 100 ml/min (>60); GFR (African American) 121 ML/MIN (>60); Glucose 157 mg/dl (74-100); Sodium 139 mmol/L (136-145)
[2022-05-30] VITALS: BP 126/65; PULSE 73; RESP 20; TEMP 36.5; O2SAT 88; O2SAT 90
[2022-05-30 04:00] VITALS: BP 108/66; PULSE 65; RESP 18; TEMP 37.1; O2SAT 99; BMI 30.2
--- NOTE | 2022-05-30 05:51 | PC.NURSE ---
Pt aox4. Pt c/o nausea 1x at beginning of shift, no other c/o voiced to staff. Attempted to titrate pt o2. Pt not tolerating, sats dropping to mid 80s. Pt currently on 6 L nc. Call light within reach.
[2022-05-30 06:15] VITALS: PULSE 68; PULSE 70; O2SAT 96
[2022-05-30 06:51] LABS: Basophils # 0.1 K/mm3 (0-0.2); Basophils % 1.7 % (0.1-2.0); Eosinophils % 0.6 % (0.1-12.0); Hematocrit 42.8 % (37.0-47.0); Hemoglobin 14.1 g/dL (12.2-16.2); Lymphocytes # 2.3 K/mm3 (0.7-4.5); Lymphocytes % 37.2 % (10-50); Mean Corpuscular HGB Conc 32.9 g/dL (31.8-35.4); Mean Corpuscular Hemoglobin 28.2 pg (27.0-31.2); Mean Corpuscular Volume 85.6 fl (81-99); Mean Platelet Volume 9.6 fl (7.4-10.4); Monocytes # 0.7 K/mm3 (0.1-1.0); Monocytes % 10.8 % (1.7-9.3); Neutrophils # 3.1 K/mm3 (1.8-7.8); Neutrophils % 49.8 % (37.0-80.0); Platelet Count 302 K/mm3 (142-424); Red Cell Distribution Width 13.9 % (11.5-17.5); White Blood Count 6.2 K/mm3 (4.8-10.8)
[2022-05-30 07:11] LABS: Chloride 106 mmol/L (98-107); Potassium 4.2 mmoL/L (3.5-5.1); Sodium 141 mmol/L (136-145)
--- NOTE | 2022-05-30 07:12 | EXP.DC.SUM ---
General Admission date:: 05/27/22 Discharge date: 05/30/22 HPI HPI HPI: Ms. Luo is a 66-year-old female with a past medical history of COPD, home oxygen dependent, chronic tobacco use, Chronic Back Pain, Fibromyalgia, Hyperlipidemia. She presents to [facility] due to cough, shortness of air, fevers and generalized body aches for the last few days prior to presentation. She reports similar sick contacts over the last week with someone with tested positive for Flu and Adenovirus. She reports that she has been taking Tylenol over the counter with no improvement in symptoms and she has a pulse ox at home and has not been able to keep her oxygenation above the 80's so she went up to 4L. In the ER, the patient tested positive for Influenza. Cxray was concerning for a developing infiltrate in the lung lung base and a left basilar lung nodule. ABG showed a moderate hypoxemia on 4L with a pO2 of 57.1, spO2 was 90% on the 4L. The patient will be admitted with initial impression: Acute on Chronic Hypoxic Respiratory Failure, Acute Exacerbation of COPD and Influenza A. She will be placed on nebulizers, Tamiflu, placed on Doxycycline for AECOPD. Oxygenation will be monitored. A full respiratory panel will be ordered given history. The plan of care was discussed in length and detail with patient and her daughter on admission in the ER. Both verbalized understanding and agreement with the plan of care. Hospital Course Hospital Course Hospital Course: 66-year-old female with past medical history of COPD, home oxygen dependent at 2L, Chronic Tobacco Use, Chronic Pain, Hyperlipidemia presents with a few day history of cough, shortness of air outside her normal, fevers and new oxygen requirement after exposure to Influenza and Adenovirus - Acute on Chronic Hypoxic Respiratory Failure in patient with known COPD - Influenza A Positive for flu on admission. Started on supplemental oxygen higher than home baseline. Wears 2-3L requiring up to 6 during admission. Weaned back down to 3 by day of discharge. Started on antibiotics and Tamiflu. We will plan to complete course of antibiotics and Tamiflu at discharge. Continue incentive spirometry at home. Continue nebulizers at home. We will complete empiric course of steroids. Sputum cultures obtained, few GPC's growing. We will continue to follow culture and adjust antibiotics if necessary after discharge. Stable for discharge home. -Of note, room air sat on day of discharge was 87%. Continues to qualify for home oxygen. Hypokalemia -Initiated repletion oral and IV.? Level normalized on day of discharge. Will not send home on any supplementation Chronic Tobacco Use: NRT, counseling on need for cessation Chronic Pain: Continue home medications Hyperlipidemia: Continue home statin Nausea during hospitalization. Chronic per patient. Continue Phenergan. Concern for GERD/gastritis component, initiated on pantoprazole. If no benefit at follow-up in 2 to 4 weeks, would consider stopping Exam Data for Last 24 hours Vital signs and Labs for Last 24 Hours: Temp Pulse Resp BP Pulse Ox 98.8 F 65 18 108/66 L 99 05/30/22 04:00 05/30/22 04:00 05/30/22 04:00 05/30/22 04:00 05/30/22 04:00 Laboratory Results - last 24 hr 05/29/22 07:09: Sodium 140, Potassium 2.9 L*, Chloride 100, Carbon Dioxide 34 H, Anion Gap 8.9, BUN 12, Creatinine 0.50 L, Estimated Creat Clear 73, Estimated GFR 124, Est GFR ( Amer) 150, Glucose 96 D, Calcium 9.4, Magnesium 1.9 05/29/22 07:09: WBC 7.1 D, RBC 5.29, Hgb 14.9, Hct 46.2, MCV 87.3, MCH 28.2, MCHC 32.3, RDW 14.2, Plt Count 272, MPV 8.5, Neut % (Auto) 61.6, Lymph % (Auto) 27.5, [place] % (Auto) 7.0, Eos % (Auto) 0.3, Baso % (Auto) 3.6 H, Neut # (Auto) 4.4, Lymph # (Auto) 2.0, [place] # (Auto) 0.5, Eos # (Auto) 0.0, Baso # (Auto) 0.3 H 05/29/22 17:45: Sodium 139, Potassium 4.0 D, Chloride 101, Carbon Dioxide 30, Anion Gap 12.0, BUN 14, Creatinine
[2022-05-30 07:14] LABS: Anion Gap 10.2 mEq/L (5-15); Blood Urea Nitrogen 12 mg/dl (7-17); Calcium 9.4 mg/dl (8.4-10.2); Carbon Dioxide 29 mmol/L (22.0-30.0); Creatinine Clearance Estimated 73 mL/min (50-200); Estimated Glomerular Filt Rate 160 ml/min (>60); GFR (African American) 194 ML/MIN (>60); Glucose 99 mg/dl (74-100); Magnesium 1.8 mg/dl (1.6-2.3)
[2022-05-30 07:26] VITALS: O2SAT 87
--- NOTE | 2022-05-30 07:27 | PC.NURSE ---
Attempted to do a RA sat on patient, O2 was turned off and patients saturations dropped to 87 in approx 1 minute. O2 increased to 3L NC and O2 saturations raised to 91%.
[2022-05-30 08:00] VITALS: BP 121/64; PULSE 79; RESP 22; TEMP 36.4; O2SAT 95
--- NOTE | 2022-05-30 10:23 | HMH.PHAINT1 ---
Pharmacy Intervention Comments: DISCHARGE MEDICATION COUNSELING PROVIDED. DISCUSSED THE FOLLOWING NEW PRESCRIPTIONS: -DOXYCYCLINE (ANTIBIOTIC, TWICE DAILY, TAKE WITH FOOD, MAY CAUSE UPSET STOMACH/N/V/D) -NICOTINE PATCH(SMOKING CESSATION, DAILY, REMOVE OLD PATCH BEFORE PLACING NEW ONE, REMOVE PRIOR TO IMAGING,SKIN IRRITATION POSSIBLE, ROTATE SITES DAILY) -OSELTAMIVIR (FOR FLU, TWICE DAILY, FINISHING A 5 DAY TOTAL COURSE AT HOME, N/V/D POSSIBLE) -PANTOPRAZOLE (FOR REFLUX, DAILY, FAIRLY WELL TOLERATED) -PREDNISONE (STEROID, PATIENT HAS HAD BEFORE AND HAD NO QUESTIONS) PATIENT VERBALIZED NO QUESTIONS AT THIS TIME.
--- NOTE | 2022-06-02 15:29 | CARE MANAGER ---
Contacted patient related to hospital discharge. She states she is doing better and denies questions or concerns. She rescheduled her follow up appointment until after [place]. VIKKI Cantu
== END 2022-05-30 12:02 | disposition home or self-care (01) | DRG 189 ==
LOC: ER 20:39 → 2ND 22:23
PROVIDERS: Nurse Practitioner Family; Admitting Provider Internal Medicine Adolescent Medicine; Emergency Provider Emergency Medicine; PCP Emergency Medicine; Visit Provider Internal Medicine Adolescent Medicine
DX: J96.21 Acute and chronic respiratory failure with hypoxia (principal); J44.1 Chronic obstructive pulmonary disease with (acute) exacerbation; J10.1 Influenza due to other identified influenza virus with other respiratory manifestations; F17.210 Nicotine dependence, cigarettes, uncomplicated; Z99.81 Dependence on supplemental oxygen; G89.29 Other chronic pain; E78.5 Hyperlipidemia, unspecified; E87.6 Hypokalemia; Z79.899 Other long term (current) drug therapy
CPT/HCPCS: 36415; 71046; 80048; 80053; 81001; 82803; 83605; 83735; 83880; 84484; 85025; 87040; 87070; 87077; 87086; 87186; 87205; 87581; 87632; 87798; 93005; 94640; 94760; 94761; 99285; C9803; J0574; J3475; U0003; U0005

== ENCOUNTER → 2022-11-17 13:20 | Outpatient (CLI) | payer MEDICARE, OTHER, SELFPAY ==
--- NOTE | 2022-11-17 13:20 | CT_ITS ---
FINAL REPORT CLINICAL HISTORY: Rt sided nodule F/U. Hx COPD, smoker. SOA x 3-4 mos. FINDINGS: CT CHEST without contrast COMPARISON: None . TECHNIQUE: Axial CT without IV contrast administration. FINDINGS: Adjacent nodules in the right lower lobe the largest measuring 12 mm and previously measured 10 mm. There is also a stable 8 mm nodule in the right middle lobe. There are changes from emphysema. Bronchiectasis is noted. No pleural or pericardial effusion is seen . No adenopathy or mass lesion is present . IMPRESSION: 1. Questionable minimal enlargement of right lower lobe nodule now measuring 12 mm. PET-CT may be considered. Other nodules are stable. 2. Emphysema and bronchiectasis. This study was performed using automated techniques to achieve radiation exposure as low as reasonably achievable Reviewed, Interpreted and Dictated by Momo Floyd MD Transcribed by Cristiana Bryant Authenticated and [facility]
== END ==
PROVIDERS: PCP Emergency Medicine; Visit Provider Internal Medicine Pulmonary Disease
DX: R91.8 Other nonspecific abnormal finding of lung field (principal)
CPT/HCPCS: 71250

== ENCOUNTER → 2023-04-20 09:12 | Outpatient (CLI) | payer MEDICARE, OTHER, SELFPAY ==
--- NOTE | 2023-04-20 09:52 | CT_ITS ---
FINAL REPORT TECHNIQUE: Thin section axial images were obtained from the lung apices through the upper abdomen without contrast. This study was performed with techniques to keep radiation doses as low as reasonably achievable (ALARA). Individualized dose reduction techniques using automated exposure control or adjustment of mA and/or kV according to the patient's size were employed. CLINICAL HISTORY: Right lower lobe pulmonary nodule, 3 mos fu COMPARISON: 11/17/2022 FINDINGS: There is no axillary lymphadenopathy. There are multiple small mediastinal lymph nodes which are stable. There is no hilar lymphadenopathy. No pleural or pericardial effusion. Emphysema is noted. There are several right lower lobe nodules which appears stable. There are 2 nodules in the right lower lobe, largest measures 11 mm and was 12 mm. Right middle lobe nodule on image 61 measures 6 mm and is unchanged. There are no new nodules. There is no consolidation. Limited, unenhanced evaluation of the upper abdomen is without acute abnormality. There is no acute osseous abnormality. IMPRESSION: Stable right middle and right lower lobe pulmonary nodules. Continued follow-up recommended. Reviewed, Interpreted and Dictated by Shalini Child MD Transcribed by Velma Cain Authenticated and [facility]
--- NOTE | 2023-04-20 09:52 | CA_ITS ---
APPROVED REPORT EXAM: Comprehensive 2D, Doppler, and color-flow Echocardiogram [employer]: Yamileth Joseph, JEFERSON, RVS Ht: 5 ft 5 in Wt: 186lbs BSA: 1.92 BP: 131/75 mmHg Indications: CHF, SOB, COPD, Smoker, HTN 2D Dimensions IVSd 0.72 cm LVEF (Visual) 55.60 % PWd 0.64 cm LA Volume 54.10 mL LVDd 4.66 cm LA Volume Index 28.228265 mL/m2 (M/F) 16-34 LVDs 3.31 cm Aortic Root 3.37 cm Left Atrium 2.17 cm LVOT 1.84 cm (M/F) 1.5-2.5 M-Mode Dimensions LA Diam 3.16 cm (1.9-4.0) Ao Diam 3.60 cm (2.0-3.7) EPSs 0.20 cm TAPSE 2.06 (<1.7) LV Diastology E Decel Time 203.00 (160-240 msec) E/A Ratio 0.78 MED E' 9.00 (< 7 cm/sec) MED A' 15.10 cm/s E'/MED E' Ratio 8.06 (>14) LAT E' 6.80 (<10 cm/sec) LAT A' 14.80 cm/s E/LAT E' Ratio 10.66 (>14) Aortic Valve LVOT Max 93.00 (70-110 cm/s) LVOT VTI 19.27 cm AoV Peak Mitchell. 109.00 (50-130 cm/s) AO Peak GR. 4.80 mmHg AO Mean GR. 2.40 (<5 mmHg) AO VTI 25.02 (18-25 cm) RAVINDRA (VTI) 2.05 (2.5-4.5 cm2) Mitral Valve MV A Velocity 92.00 (40-130 cm/s) E/A Ratio 0.78 MV Decel. Time 203.00 (160-240 ms) Tricuspid Valve TR P. Velocity 279.00 cm/s RAP Estimate 10.00 mmHg RVSP 41.20 mmHg Left Ventricle The left ventricle is normal size. The left ventricular systolic function is normal. The left ventricular ejection fraction is within the normal range. There is normal left ventricular wall thickness. There is normal LV segmental wall motion. The left ventricular diastolic function is normal. LVEF is 60%. Right Ventricle The right ventricle is mildly dilated. The right ventricular systolic function is normal. Atria The left atrium size is normal. The right atrium size is normal. There is no Doppler evidence of interatrial shunt. Aortic Valve Aortic valve is mildly thickened. There is no aortic valvular stenosis. No aortic regurgitation is present. Mitral Valve The mitral valve leaflets are mildly thickened. No evidence of mitral valve stenosis. Trace mitral regurgitation. Tricuspid Valve The tricuspid valve leaflets are thin and pliable. Trace tricuspid regurgitation. RVSP is 30-35 mmHg. Pulmonic Valve The pulmonary valve is normal in structure. Trace pulmonic regurgitation. Great Vessels The aortic root is normal in size. The ascending aorta is not well visualized. IVC is normal in size and collapses >50% with inspiration. Pericardium There is no pericardial effusion. Other Information Study Quality: Fair Conclusion Normal biventricular systolic function. Mildly dilated RV. No significant valvular stenosis or regurgitation. Electronically signed by : Jamee Almendarez MD 04/25/2023 13:09:03
== END ==
PROVIDERS: PCP Emergency Medicine; Visit Provider Internal Medicine Pulmonary Disease
DX: I50.9 Heart failure, unspecified; J96.21 Acute and chronic respiratory failure with hypoxia; R91.8 Other nonspecific abnormal finding of lung field; Z72.0 Tobacco use
CPT/HCPCS: 71250; 93306; 94618

== ENCOUNTER 2023-08-07 13:00 | Outpatient (CLI) | payer MEDICARE, OTHER, SELFPAY ==
[2023-08-07 14:31] LABS: Basophils % 0.3 % (0.1-2.0); Eosinophils # 0.1 K/mm3 (0.0-0.4); Eosinophils % 1.3 % (0.1-12.0); Hematocrit 49.1 % (37.0-47.0); Hemoglobin 15.4 g/dL (12.2-16.2); Lymphocytes # 1.5 K/mm3 (0.7-4.5); Lymphocytes % 17.6 % (10-50); Mean Corpuscular HGB Conc 31.3 g/dL (31.8-35.4); Mean Corpuscular Hemoglobin 27.1 pg (27.0-31.2); Mean Corpuscular Volume 86.6 fl (81-99); Mean Platelet Volume 8.6 fl (7.4-10.4); Monocytes # 0.3 K/mm3 (0.1-1.0); Monocytes % 3.4 % (1.7-9.3); Neutrophils # 6.8 K/mm3 (1.8-7.8); Neutrophils % 77.4 % (37.0-80.0); Platelet Count 307 K/mm3 (142-424); Red Blood Count 5.66 M/mm3 (4.20-5.40); Red Cell Distribution Width 16.4 % (11.5-17.5); White Blood Count 8.8 K/mm3 (4.8-10.8)
[2023-08-07 14:36] LABS: INR 1.06 (0.9-1.1); Prothrombin Time 11.4 seconds (10.1-12.5)
[2023-08-07 14:51] LABS: 25-OH Vitamin D, Total 111 ng/mL (30-100)
[2023-08-07 20:00] LABS: Alanine Aminotransferase 34 U/L (12-78); Albumin Level 3.9 g/dl (3.5-5.0); Albumin/Globulin Ratio 1.1 (1.1-1.8); Alkaline Phosphatase 122 U/L (38-126); Anion Gap 15.2 mEq/L (5-15); Aspartate Amino Transferase 52 U/L (14-36); Bilirubin,Total 1.2 mg/dl (0.2-1.3); Blood Urea Nitrogen 9 mg/dl (7-17); Calcium 8.6 mg/dl (8.4-10.2); Carbon Dioxide 29 mmol/L (22.0-30.0); Chloride 98 mmol/L (98-107); Chol/HDL Ratio 3.4 (1-3.5); Cholesterol 111 mg/dl (140-200); Estimated Glomerular Filt Rate 123 ml/min (>60); GFR (African American) 149 ML/MIN (>60); Globulin 3.4 g/dL (1.3-3.2); Glucose 125 mg/dl (74-100); HDL Cholesterol 33 mg/dl (40-60); Potassium 4.2 mmoL/L (3.5-5.1); Sodium 138 mmol/L (136-145); Total Protein,Serum 7.3 g/dl (6.3-8.2); Triglycerides 80 mg/dl (30-150); VLDL Cholesterol 16 mg/dL (0-40)
[2023-08-07 20:12] LABS: Direct LDL Cholesterol 51.49 mg/dL (100-129)
[2023-08-07 20:32] LABS: Thyroid Stimulating Hormone 1.86 uIU/mL (0.465-4.68)
[2023-08-08 13:58] LABS: HBsAg Screen Negative (Negative); HCV Ab Non Reactive (Non Reactive); Hep A Ab, IGM Negative (Negative); Hep B Core Ab, IgM Negative (Negative)
[2023-08-09 15:03] LABS: HIV Screen 4th Generation wRfx Non Reactive (Non Reactive)
[2023-08-10 08:58] LABS: Hep A Ab, Total Positive (Negative); Hep B Core Ab, Total Negative (Negative); Hep B Surface Ab, Qual Non Reactive (.)
== END 2023-08-07 23:59 ==
LOC: LAB 13:03
PROVIDERS: PCP Nurse Practitioner Family; Visit Provider Internal Medicine
DX: F19.11 Other psychoactive substance abuse, in remission (principal); Z79.01 Long term (current) use of anticoagulants; R53.83 Other fatigue; K59.00 Constipation, unspecified; B19.20 Unspecified viral hepatitis C without hepatic coma; E03.8 Other specified hypothyroidism; E67.3 Hypervitaminosis D; B15.9 Hepatitis A without hepatic coma; Z11.4 Encounter for screening for human immunodeficiency virus [HIV]
CPT/HCPCS: 36415; 80053; 80061; 80074; 82306; 84443; 85025; 85610; 86703; 86704; 86706; 86708; 87522; G0432

== ENCOUNTER 2023-09-06 18:41 | Emergency (ER) | payer MEDICARE, OTHER, SELFPAY ==
[2023-09-06] VITALS (10 sets, daily range): BP systolic 82–137; BP diastolic 61–91; PULSE 145–150; RESP 18–27; TEMP 36.6; O2SAT 89–98; BMI 31.3
--- NOTE | 2023-09-06 18:45 | ECG_ITS ---
APPROVED REPORT Exam: Resting ECG HR:130 bpm ECG Measurements Heart Rate 130 AXES QRSd 93 QRS 98 QT 345 T 60 QTc 422 Conclusion ATRIAL FLUTTER/TACHYCARDIA WITH RAPID VENTRICULAR RESPONSE BORDERLINE RIGHT AXIS DEVIATION [QRS AXIS > 90] INCOMPLETE RIGHT BUNDLE BRANCH BLOCK [90+ ms QRS DURATION, TERMINAL R IN V1/V2, 40+ ms S IN I/aVL/V4/V5/V6] ST ELEVATION, CONSIDER ANTERIOR INJURY [MARKED ST ELEVATION W/O NORMALLY INFLECTED T-WAVE IN V2-V5] MARKED ST ELEVATION, CONSIDER INFERIOR INJURY [MARKED ST ELEVATION W/O NORMALLY INFLECTED T-WAVE IN II/aVF] ACUTE SC INTERPRETATION BASED ON A DEFAULT AGE OF 40 YEARS UNCONFIRMED REPORT Electronically signed by : PEDRO LYONS, 09/08/2023 01:59:01
--- NOTE | 2023-09-06 18:52 | PC.NURSE ---
DR BARKER AT BEDSIDE
--- NOTE | 2023-09-06 18:54 | XR_ITS ---
PROCEDURE INFORMATION: Exam: XR Chest Exam date and time: 09/06/2023 7:04 PM Age: 68 years old Clinical indication: Shortness of breath; Additional info: SOA, cough, copd exacerbatino TECHNIQUE: Imaging protocol: Radiologic exam of the chest. Views: 1 view. COMPARISON: CT CHEST WO CON 04/20/2023 10:22 AM FINDINGS: Lungs: Mild atelectasis in the lung bases. No consolidation. Pleural spaces: Unremarkable. No pleural effusion. No pneumothorax. Heart/Mediastinum: Cardiomegaly. Bones/joints: Unremarkable. IMPRESSION: No acute findings.
--- NOTE | 2023-09-06 19:00 | PC.NURSE ---
RESPIRATORY AT BEDSIDE FOR BI-PAP
[2023-09-06] MEDS: IPRATROPIUM/ALBUTEROL 3 ML NEB 6 ML IH (19:15)
--- NOTE | 2023-09-06 19:20 | PC.NURSE ---
staff at bedside
[2023-09-06] MEDS: METHYLPREDNISOLONE SOD SUCC 125MG VIAL 125 MG IV (19:30)
[2023-09-06] MEDS: 0.9 % SODIUM CHLORIDE 1000ML 1,000 ML 999 ML IV (19:30)
--- NOTE | 2023-09-06 19:31 | PC.NURSE ---
lab at bedside attempting to get additional cultures and blood
[2023-09-06 19:47] LABS: Basophils # 0.2 K/mm3 (0-0.2); Basophils % 1.8 % (0.1-2.0); Eosinophils % 0.3 % (0.1-12.0); Hematocrit 45.7 % (37.0-47.0); Hemoglobin 14.2 g/dL (12.2-16.2); Lymphocytes # 0.9 K/mm3 (0.7-4.5); Lymphocytes % 6.6 % (10-50); Mean Corpuscular HGB Conc 31.1 g/dL (31.8-35.4); Mean Corpuscular Volume 83.8 fl (81-99); Mean Platelet Volume 9.3 fl (7.4-10.4); Monocytes # 0.5 K/mm3 (0.1-1.0); Monocytes % 3.5 % (1.7-9.3); Neutrophils % 87.9 % (37.0-80.0); Platelet Count 207 K/mm3 (142-424); Red Blood Count 5.45 M/mm3 (4.20-5.40); Red Cell Distribution Width 16.2 % (11.5-17.5); White Blood Count 13.6 K/mm3 (4.8-10.8)
[2023-09-06 19:52] LABS: MANUAL DIFFERENTIAL MANUAL DIFFERENTIAL (MANUAL DIFF)
--- NOTE | 2023-09-06 19:58 | [facility].EDCP ---
Discharge Plan Disposition Patient Disposition: Xfer Short-Term Hosp Chief Complaint: Shortness of Breath/Dyspnea Prescriptions Prescriptions: No Action buprenorphine-naloxone [Suboxone] 8-2 mg film 2 film sublingual DAILY Patient Comments: PLACE 2 FILMS UNDER THE TONGUE AND ALLOW TO DISSOLVE 1 TIME EACH DAY pregabalin 300 mg capsule 300 mg PO BID Qty: 60 2RF pantoprazole 40 mg tablet,delayed release (DR/EC) 40 mg PO DAILY 30 Days Qty: 90 2RF albuterol sulfate 90 mcg/actuation HFA aerosol inhaler 2 puff IH Q8HP PRN (Reason: shortness of breath or wheezing) Qty: 8.5 2RF cholecalciferol (vitamin D3) 1,250 mcg (50,000 unit) capsule See Rx Instructions .ROUTE .COMPLEX Qty: 5 0RF Dose Instruction: TAKE 1 CAPSULE 1 TIME EACH WEEK Rx Instructions: TAKE 1 CAPSULE 1 TIME EACH WEEK atorvastatin 10 mg tablet 10 mg PO HS Qty: 90 0RF Rx Instructions: TAKE 1 TABLET 1 TIME EACH DAY AT BEDTIME Trelegy Ellipta 100-62.5-25 mcg blister with device See Rx Instructions .ROUTE .COMPLEX Qty: 60 2RF Dose Instruction: INHALE 1 DOSE 1 TIME EACH DAY FOR COPD. Rx Instructions: INHALE 1 DOSE 1 TIME EACH DAY FOR COPD. promethazine 25 mg tablet See Rx Instructions .ROUTE .COMPLEX Qty: 40 2RF Dose Instruction: TAKE 1 TABLET EVERY 8 HOURS NEEDED FOR NAUSEA AND VOMITING Rx Instructions: TAKE 1 TABLET EVERY 8 HOURS NEEDED FOR NAUSEA AND VOMITING ipratropium-albuterol 0.5 mg-3 mg(2.5 mg base)/3 mL solution for nebulization 3 ml IH TID Rx Instructions: one vial in nebulizer tid. stop albuterol nebs nicotine 21 mg/24 hr Patch 24 Hour 21 mg transdermal DAILY 28 Days Qty: 28 0RF Referrals Follow up/Referrals: Zeferino Casas DO [Primary Care Provider] - See instructions Clinical Impressions Clinical Impression: Acute hypoxemic respiratory failure, Pulmonary embolism, Acute liver failure Stand Alone Forms Stand Alone Forms: Transfer Record - ED Discharge ED Provider: Galindo Alvarado General Chief Complaint: Shortness of Breath/Dyspnea Stated Complaint: Chest Pain Time Seen by Provider: 09/06/23 18:54 Mode of Arrival: Wheelchair Source of Information: Patient Limitations: No Limitations Description of Symptoms (Recalled from ER Triage Doc. by RN): Patient to ED via wheelchair from [facility] for SOA. Patient in tripod postion upon arrived, pursed lipped breathing noted. Pt with hx of COPD, reports that she stopped smoking and that was when the SOA started and has progressively gotten worse History of Present Illness HPI narrative: Is a 68-year-old female history of hypertension, hyperlipidemia, COPD on 2 L nasal cannula at home still smoking, CAD presenting with shortness of breath. Patient states that shortness of breath has been getting worse for the last week. Nonproductive cough it is not any worse than usual. Denies chest pain, nausea or vomiting, fevers or chills, recent sick contact, abdominal pain, urinary symptoms, weight loss, or any other concerns. States that she has not smoked in over a week because her symptoms have been getting worse. Please note that above description of symptoms, in this electronic medical record under categorization of recalled from ER triage doctor by RN are reflective of an initial nursing assessment, however, is not reflective of my full history and physical exam that was personally taken and clarified. Consequentially, this preceding description of symptoms, which may include the patient's categorized chief complaint in the EMR, do not reflect my personal clinical impression, and the ultimate description of history of present illness and patient stated complaints should be deferred to this section of the note. Unless stated otherwise or congruent with this section of the note, additional signs, symptoms, or incongruence should be interpreted as inaccurate with my clinical impression. Related Data Home Medications Medication Instructions Recorded Confirmed ipratropium 0.5 mg-albuterol 3 mg 3 ml inhalation TID COPD 05/27/22 07/27/23 (2.5 mg base)/3 mL nebulization soln buprenorphine 8 mg-naloxone 2 mg 2 film sublingual DAILY 04/21/23 07/27/23 sublingual film (Suboxone) Previous Rx's Medication Instructions Recorded nicotine 21 mg/24 hr daily 21 mg transdermal DAILY 28 days 05/30/22 transdermal patch #28 ea albuterol sulfate 90 mcg/actuation 2 puff inhalation Q8HP PRN 02/22/23 aerosol inhaler shortness of breath or wheezing #8.5 grams cholecalciferol (vitamin D3) 1,250 See Rx Instructions .Route 07/12/23 mcg (50,000 unit) capsule .COMPLEX #5 caps atorvastatin 10 mg tablet 10 mg PO HS Cholesterol #90 tabs 07/13/23 pantoprazole 40 mg tablet,delayed 40 mg PO DAILY 30 days #90 tabs 07/27/23 release pregabalin 300 mg capsule 300 mg PO BID NEUROPATHY #60 caps 07/27/23 fluticasone fur. 100 mcg-umeclid See Rx Instructions .Route 08/28/23 62.5 mcg-vilant 25 mcg .COMPLEX #60 blisters inhalat.powder (Trelegy Ellipta) promethazine 25 mg tablet See Rx Instructions .Route 09/04/23 .COMPLEX #40 tabs Allergies Allergy/AdvReac Type Severity Reaction Status Date / Time No Known Allergies Allergy Verified 07/27/23 09:48 [facility] Disclaimer: The information contained in this section may have been updated after the patient was seen, as this information can be updated by other users. Medical History Bronchiectasis without complication Candidiasis of mouth Chronic pain Community acquired pneumonia COPD (chronic obstructive pulmonary disease) Dyspnea on exertion Fibromyalgia Multiple pulmonary nodules Pulmonary emphysema Tobacco abuse counseling Tobacco abuse disorder Surgical History History of total hysterectomy History of tubal ligation Hx of cholecystectomy Family History Other No significant family history Social History Smoking Status: Current every day smoker tobacco type: cigarettes packs per day: 1 alcohol intake: never substance use type: former substance user, opiates and painkillers current occupational status: retired Travel in the last 8 weeks: None household members: family housing: house ROS Obtained: Yes All systems reviewed & no additional complaints except as documented Physical Exam General General appearance: alert and in distress Neck Neck exam: Present trachea midline Chest Chest inspection: Present normal inspection and symmetric chest wall rise Respiratory Respiratory exam: Present respiratory distress, wheezes, accessory muscle use, prolonged expiratory phase and other (Tachypnea, minimal air movement on bilateral auscultation. Diffuse expiratory wheezes with prolonged expiratory phase and increased work of breathing.); Absent stridor Cardiovascular Cardiovascular exam: Present normal rhythm and tachycardia Extremities Exam Extremities exam: Absent edema Neurological Exam Neurological exam: Present alert, oriented X3 and CN II-XII intact Skin Skin exam: Present warm and dry; Absent cyanosis, diaphoresis or pallor HEART Score HEART Score HEART Score assessment performed?: Yes History (anamnesis): Moderately suspicious ECG: Non-specific disturbance Age: >65 years Risk factors: 3 or more risk factors Troponin: 1-3x normal limit HEART Score: 7 Critical Care Critical Care Time Critical Care Time: Yes (gi, respiratory, CV) Attestation: On 09/06/23, the high probability of a clinically significant, sudden or life threatening deterioration of the following system(s) required my full and direct attention, intervention and personal management. The time I documented below is in addition to time spent performing reported procedures but includes the following listed in this critical care notation. Total Time Total Critical Care Time: 120 Medical Decision Making Medical Records Medical records reviewed: Yes I reviewed the patient's medical records. João Inquiry Pt receiving controlled substance: No João was queried for this patient: No Vital Signs Vital Signs: 09/06/23 18:41 Temperature 97.9 F Temperature Source Oral Pulse Rate [Right] 150 H Respiratory Rate 18 Blood Pressure [Right Arm] 82/61 L Blood Pressure Mean [Right Arm] 68 Blood Pressure Source [Right Arm] Automatic Cuff Blood Pressure Position [Right Arm] Supine 02 Sat by Pulse Oximetry 97 Oxygen Delivery Method BiPAP Lab Data Labs: Lab Results 09/06/23 18:55: VBG pH 7.45 H, VBG pCO2 37.7, VBG pO2 60.5 H, VBG HCO3 25.6, VBG Total CO2 26.8, VBG O2 Saturation 89.4 H, VBG Base Excess 1.6, VBG Lactic Acid 4.9 H 09/06/23 19:26: WBC 13.6 H, RBC 5.45 H, Hgb 14.2, Hct 45.7, MCV 83.8, MCH 26.0 L, MCHC 31.1 L, RDW 16.2, Plt Count 207, MPV 9.3, Neut % (Auto) 87.9 H, Lymph % (Auto) 6.6 L, [place] % (Auto) 3.5, Eos % (Auto) 0.3, Baso % (Auto) 1.8, Neut # (Auto) 12.0 H, Lymph # (Auto) 0.9, [place] # (Auto) 0.5, Eos # (Auto) 0.0, Baso # (Auto) 0.2, Total Counted 100, Neutrophils % (Manual) 87 H, Lymphocytes % (Manual) 10, Monocytes % (Manual) 3, Platelet Estimate Normal, Hypochromasia 2+, Sodium 133 L, Potassium 4.5, Chloride 97 L, Carbon Dioxide 28, Anion Gap 12.5, BUN 36 H, Creatinine 1.70 H, Estimated Creat Clear 46, Estimated GFR 30 L, Est GFR ( Amer) 36 L, Glucose 120 H, Calcium 8.3 L, Total Bilirubin 3.5 H, AST 57385 H*, ALT 5934 H*, Alkaline Phosphatase 161 H, Troponin I 0.08 H, NT-Pro-B Natriuret Pep 3110 H, Total Protein 7.0, Albumin 3.3 L, Globulin 3.7 H, Albumin/Globulin Ratio 0.9 L, TSH 1.79, Thyroxine (T4) 11.0 09/06/23 19:48: PT 28.3 H, INR 2.80 H, D-Dimer > 8.10 H 09/06/23 21:58: Troponin I 0.06 H 09/06/23 19:26 09/06/23 19:26 Response Orders (Tests/Meds): ED MEDICATIONS Generic Name Dose Route Start Last Admin Trade Name Andreaq PRN Reason Stop Dose Admin Vancomycin/PEG/NADA/Lysine/Water 1.5 gm in 300 mls @ 150 mls/hr 09/06/23 21:45 09/06/23 22:56 Vancomycin 1.5gm/300ml (Peg) Premix IV 09/06/23 23:44 150 mls/hr ONCE ONE Administration Heparin Sodium/Dextrose 500 mls @ 28 mls/hr 09/06/23 23:00 Heparin 25,000 Units In D5w 500ml Premix IV 10/06/23 22:59 .[id number] [facility] 1,400 UNITS/HR Miscellaneous 1 each 09/06/23 21:45 Vancomycin Consult Request NOTAPPLIC 10/06/23 21:44 CONSULT PHARMACY [facility] Miscellaneous 1 each 09/06/23 22:45 Heparin Drip Consult NOTAPPLIC 10/06/23 22:44 CONSULT PHARMACY [facility] Discontinued Medications Generic Name Dose Route Start Last Admin Trade Name Satya PRN Reason Stop Dose Admin Albuterol/Ipratropium 6 ml 09/06/23 19:04 09/06/23 19:15 Ipratropium/Albuterol 3 Ml Neb IH 09/06/23 19:05 6 ml ONCE ONE Administration Diltiazem HCl 20 mg 09/06/23 20:39 Diltiazem 25mg/5ml Vial IV 09/06/23 20:40 ONCE ONE Heparin Sodium (Porcine) 5,000 unit 09/06/23 22:35 Heparin Sodium 5,000 Unit/Ml Vial IV 09/06/23 22:36 ONCE ONE Sodium Chloride 1,000 mls @ 999 mls/hr 09/06/23 18:54 09/06/23 19:30 Sod Chlor 0.9% 1000ml Bag IV 09/06/23 19:54 999 mls/hr .Q1H1M ONE Administration Magnesium Sulfate 2 gm in 50 mls @ 50 mls/hr 09/06/23 19:04 Magnesium Sulfate 2gm/50ml Premix IV 09/06/23 20:03 ONCE ONE Ceftriaxone Sodium 2 gm/ 100 mls @ 200 mls/hr 09/06/23 19:58 Sodium Chloride IV 09/06/23 20:27 ONCE ONE Ampicillin Sodium/Sulbactam 100 mls @ 200 mls/hr 09/06/23 21:41 09/06/23 22:34 Sodium 3 gm/ Sodium Chloride IV 09/06/23 21:42 200 mls/hr ONCE ONE Administration Iopamidol 70 ml 09/06/23 21:52 09/06/23 21:53 Iopamidol-370 (76%);100ml Bottle IV 09/06/23 21:53 70 ml ONCE ONE Administration Methylprednisolone Sodium Succinate 125 mg 09/06/23 19:04 09/06/23 19:30 Methylprednisolone Sod Succ 125mg Vial IV 09/06/23 19:05 125 mg ONCE ONE Administration Sodium Chloride 10 ml 09/06/23 21:52 09/06/23 21:53 Sodium Chloride 0.9% 10ml Syr (Rad Only) IV 09/06/23 21:53 10 ml ONCE ONE Administration ORDERS Category Date Time Status CT angio abdomen pelvis Stat Cat Scan 09/06/23 21:[address] angio chest PE protocol Stat Cat Scan 09/06/23 20:48 Completed XR chest portable Stat Exams 09/06/23 18:54 Completed Complete Blood Count Auto Diff Stat Lab 09/06/23 19:26 Completed Comprehensive Metabolic Panel Stat Lab 09/06/23 19:26 Completed D-Dimer Stat Lab 09/06/23 19:48 Completed Heparin drip PTT [PTT Heparin (inpatient only)] Stat Lab 09/07/23 05:00 Ordered Hepatitis Panel Stat Lab 09/06/23 22:33 Ordered INR [Prothrombin Time INR] Stat Lab 09/06/23 19:48 Completed Lactate Venous Stat Lab 09/06/23 18:54 Ordered Lactic Acid Follow Up (RFLX 1) Stat Lab 09/06/23 22:36 Ordered NT Pro Brain Natriuretic Pep. Stat Lab 09/06/23 19:26 Completed PTT Heparin (inpatient only) Stat Lab 09/06/23 19:48 Received T4 (Thyroxine) Stat Lab 09/06/23 19:26 Completed TSH [Thyroid Stimulating Hormone] Stat Lab 09/06/23 19:26 Completed Troponin I Q3H Lab 09/06/23 21:58 Completed Troponin I Q3H Lab 09/07/23 01:00 Ordered Troponin I Stat Lab 09/06/23 19:26 Completed Blood Culture Stat Micro 09/06/23 19:30 Received Venous Blood Gas Stat RT 09/06/23 18:55 Completed MDM Narrative Medical Decision Narrative: Is a 68-year-old female history of hypertension, hyperlipidemia, COPD on 2 L nasal cannula at home still smoking, CAD presenting with shortness of breath. Patient states that shortness of breath has been getting worse for the last week. Nonproductive cough it is not any worse than usual. Denies chest pain, nausea or vomiting, fevers or chills, recent sick contact, abdominal pain, urinary symptoms, weight loss, or any other concerns. States that she has not smoked in over a week because her symptoms have been getting worse. Is been no the patient is still smoking with her COPD which is making things worse. History was obtained via conversation with patient. On arrival, patient hemodynamically stable, alert, oriented x4, appropriate, GCS 15, moving all extremities spontaneously, pupils equal and reactive to light. Full physical exam performed and significant for patient appears older than stated age, in acute respiratory distress. Increased work of breathing, prolonged expiratory phase, diffuse bilateral wheezes with decreased air movement diffusely. No focal breath sounds. Cardiac exam within normal limits other than tachycardia. Differential includes COPD exacerbation, pneumonia, pneumothorax, ACS, SC, PE, among others. Patient was given BiPAP, DuoNebs, Solu-Medrol, 2 g ceftriaxone for symptomatic management and correction of underlying abnormalities. Workup independently interpreted and significant for leukocytosis 13.6 with neutrophilia. Patient's INR elevated at 2.8, D-dimer elevated 8.1. VBG with concern for respiratory alkalosis. pH 7.45, CO2 37, bicarb 25.6. VBG lactate 5. Chemistry concerning for hyponatremia 133, ROSSY with creatinine 1.7 and BUN 36. GFR 30. Patient's bilirubin elevated at 3.5, AST 10,500, ALT 6000, alkaline phosphatase elevated at 161. Delta troponin negative with initial being 0.08 and repeat 0.06. BNP elevated at 3100. Thyroid studies normal. CTA pulmonary embolus study with bilateral PEs, right heart strain with RV to LV ratio 1.5. CTA of the abdomen pelvis without any acute findings. See radiology read for full review of final results. Independent interpretation of EKG shows atrial flutter [address] or T wave changes concerning for acute ischemia. [place], QRS, QT intervals within normal limits. Patient placed on continuous cardiac monitoring and continuous pulse ox with initial blood pressure 82/61, heart rate 150, saturation 97% on 5 L nasal cannula. Heart score 7. On reevaluation, patient started on heparin bolus and drip. BiPAP was removed, patient feeling much better. Acetaminophen and ethanol labs were sent, but further conversation reveals that patient has not been drinking or taking Tylenol. CT abdomen pelvis with bladder distention, but patient able to urinate and urinalysis was sent. No Mckeon was anchored. Because patient has MELD score of 31 acutely, ROSSY, acute liver failure, and bilateral pulmonary emboli necessitating heparin bolus and drip with evidence of right heart strain and intermittent hemodynamic instability, deemed appropriate for transfer. [facility] was contacted and case was discussed at length, recommended transfer ED to ED. Because patient high risk for clinical decompensation if discharged, deemed appropriate for transfer and inpatient admission. Results were relayed to patient who voiced understanding and patient was agreeable to transfer, inpatient admission, and management. Patient was graciously accepted and transferred to [facility] emergency department for further definitive management, under Dr. Dimas.
[2023-09-06 20:13] LABS: Hypochromasia 2+; Lymphocytes % 10 % (10-50); Monocytes % 3 % (2-9); Neutrophils % 87 % (42-76); Platelet Estimate Normal; Total Cells Counted 100
[2023-09-06 20:19] LABS: Albumin Level 3.3 g/dl (3.5-5.0); Albumin/Globulin Ratio 0.9 (1.1-1.8); Alkaline Phosphatase 161 U/L (38-126); Anion Gap 12.5 mEq/L (5-15); Bilirubin,Total 3.5 mg/dl (0.2-1.3); Blood Urea Nitrogen 36 mg/dl (7-17); Calcium 8.3 mg/dl (8.4-10.2); Carbon Dioxide 28 mmol/L (22.0-30.0); Chloride 97 mmol/L (98-107); Creatinine Clearance Estimated 46 mL/min (50-200); Estimated Glomerular Filt Rate 30 ml/min (>60); GFR (African American) 36 ML/MIN (>60); Globulin 3.7 g/dL (1.3-3.2); Glucose 120 mg/dl (74-100); Potassium 4.5 mmoL/L (3.5-5.1); Sodium 133 mmol/L (136-145)
[2023-09-06 20:25] LABS: D-Dimer > 8.10 ug/mL (0.0-0.5)
[2023-09-06 20:31] LABS: NT Pro Brain Natriuretic Pep. 3110 pg/mL (0-125); Troponin I 0.08 ng/ml (0.00-0.034)
--- NOTE | 2023-09-06 20:48 | CT_ITS ---
PROCEDURE INFORMATION: Exam: CTA Chest With Contrast Exam date and time: 09/06/2023 9:40 PM Age: 68 years old Clinical indication: Shortness of breath; Additional info: SOA, tachycarida, dimer TECHNIQUE: Imaging protocol: Computed tomographic angiography of the chest with contrast. Exam focused on the arteries. 3D rendering (Not supervised by radiologist): MIP and/or 3D reconstructed images were created by the technologist. Radiation optimization: All CT scans at this facility use at least one of these dose optimization techniques: automated exposure control; mA and/or kV adjustment per patient size (includes targeted exams where dose is matched to clinical indication); or iterative reconstruction. Contrast material: ISOVUE; Contrast volume: 70 ml; Contrast route: INTRAVENOUS (IV); COMPARISON: CT CHEST WO CON 04/20/2023 10:22 AM FINDINGS: Pulmonary arteries: Positive PE left upper lobe subsegmental, left lower lobe subsegmental, right upper lobe and right lower lobe segmental and subsegmental. Aorta: Unremarkable. No aortic aneurysm. No aortic dissection. Lungs: In the lung bases there is linear areas of atelectasis versus scarring. Subpleural nodules in the right lung base largest 9 mm. 5.6 mm subpleural nodule in the right upper lobe inferior. Emphysema. Biapical scarring. Pleural spaces: Unremarkable. No pneumothorax. No pleural effusion. Heart: Mild right heart strain with elevated RV LV ratio 1.5. Cardiomegaly. Lymph nodes: Unremarkable. No enlarged lymph nodes. Bones/joints: Unremarkable. No acute fracture. Soft tissues: Unremarkable. IMPRESSION: 1. Positive bilateral pulmonary embolism with right heart strain. 2. Pulmonary nodules on the right. They appears stable when compared to report dated 12/14/2021. For patients at low risk (minimal or absent history of smoking and of other known risk factors), no routine follow-up is indicated. For patients at high risk (history of smoking or of other known risk factors), consider optional CT at 12 months. (martha Thomson., Fleischner Society, 2017)
[2023-09-06 20:50] LABS: Thyroid Stimulating Hormone 1.79 uIU/mL (0.465-4.68)
--- NOTE | 2023-09-06 21:03 | PC.NURSE ---
Rounded on patient no new complaints noted
[2023-09-06 21:10] LABS: Alanine Aminotransferase 5934 U/L (12-78)
--- NOTE | 2023-09-06 21:15 | PC.NURSE ---
Dr. Alvarado at bedside. US guided IV placed. 20g R AC patent. Dressing C/D/I.
[2023-09-06 21:19] LABS: Aspartate Amino Transferase 10510 U/L (14-36)
--- NOTE | 2023-09-06 21:27 | PC.NURSE ---
at bedside attempting IV guided us
[2023-09-06 21:32] LABS: VBG Base Excess 1.6 mmol/L (-2.4-2.3); VBG HCO3 25.6 mmol/L (23-30); VBG Oxygen Saturation 89.4 % (50-70); VBG PCO2 37.7 mmol/L (35-51); VBG PH 7.45 mmol/L (7.31-7.41); VBG PO2 60.5 mmol/L (28-40); VBG Total CO2 26.8 mmol/L (23-27)
--- NOTE | 2023-09-06 21:42 | CT_ITS ---
PROCEDURE INFORMATION: Exam: CT Abdomen And Pelvis With Contrast Exam date and time: 09/06/2023 9:45 PM Age: 68 years old Clinical indication: Abdominal pain; Acute; Additional info: Abd pain, sepsis TECHNIQUE: Imaging protocol: Computed tomography of the abdomen and pelvis with contrast. Radiation optimization: All CT scans at this facility use at least one of these dose optimization techniques: automated exposure control; mA and/or kV adjustment per patient size (includes targeted exams where dose is matched to clinical indication); or iterative reconstruction. Contrast material: ISOVUE; Contrast volume: 70 ml; Contrast route: INTRAVENOUS (IV); COMPARISON: CT ANGIO CHEST PE PROTOCOL 09/06/2023 9:40 PM FINDINGS: Liver: Normal. No mass. Gallbladder and bile ducts: Cholecystectomy. Pancreas: Normal. No ductal dilation. Spleen: Normal. No splenomegaly. Adrenal glands: Normal. No mass. Kidneys and ureters: Normal. No hydronephrosis. Stomach and bowel: There is mild inflammation associated with the distal 2nd portion of the duodenum which could reflect mild duodenitis. Mild wall thickening involving the distal ascending colon could indicate low-grade colitis. Appendix: Appendectomy. Intraperitoneal space: Unremarkable. No free air. No significant fluid collection. Vasculature: Unremarkable. No abdominal aortic aneurysm. Lymph nodes: Unremarkable. No enlarged lymph nodes. Urinary bladder: Distended urinary bladder. Reproductive: Hysterectomy. Bones/joints: Unremarkable. No acute fracture. Soft tissues: Unremarkable. IMPRESSION: 1. There is mild inflammation associated with the distal 2nd portion of the duodenum which could reflect mild duodenitis. 2. Mild wall thickening involving the distal ascending colon could indicate low-grade colitis.
--- NOTE | 2023-09-06 21:48 | PC.NURSE ---
patient to CT.
[2023-09-06] MEDS: IOPAMIDOL-370 (76%);100ML BOTTLE 70 ML IV (21:53)
[2023-09-06] MEDS: SODIUM CHLORIDE 0.9% 10ML SYR (RAD ONLY) 10 ML IV (21:53)
[2023-09-06 22:20] LABS: Prothrombin Time 28.3 seconds (10.1-12.5)
[2023-09-06 22:28] LABS: Troponin I 0.06 ng/ml (0.00-0.034)
--- NOTE | 2023-09-06 22:28 | PC.NURSE ---
Pt placed on BSC, family at bedside, call light within reach will call out when finished
--- NOTE | 2023-09-06 22:28 | PC.NURSE ---
images being powershared
[2023-09-06] MEDS: AMPICILLIN/SULBACTAM 3 GM in 0.9 % SODIUM CHLORIDE 100 ML IV (22:34)
[2023-09-06 22:35] LABS: Lactate Venous 4.9 mmol/L (0.4-2.0)
[2023-09-06 22:36] LABS: Reflex Lactic Add Lactic Reflex
--- NOTE | 2023-09-06 22:36 | PC.NURSE ---
Patient accepted by Dr. Dimas at ; will be ED to ED transfer.
--- NOTE | 2023-09-06 22:43 | PC.NURSE ---
Karen [phone]
[2023-09-06] MEDS: VANCOMYCIN/WATER FOR INJ (PEG) 1.5 GM/300 ML PIGGYBACK IV (22:56)
--- NOTE | 2023-09-06 23:01 | PC.NURSE ---
spoke with sandrita rangel
[2023-09-06 23:19] LABS: PTT Heparin (inpatient only) 34.4 Seconds (23.6-34.0)
[2023-09-06] MEDS: HEPARIN SODIUM 5,000 UNIT/ML VIAL 5000 UNIT IV (23:32)
[2023-09-06] MEDS: HEPARIN 25,000 UNITS/D5W 500 ML 28 UNIT IV (23:33)
[2023-09-06 23:42] LABS: Lactic Acid Follow Up (RFLX 1) 2.9 mmol/L (0.7-2.1)
[2023-09-07 00:01] VITALS: BP 107/73; PULSE 146; O2SAT 88
--- NOTE | 2023-09-07 00:52 | PC.NURSE ---
Report called to VIKKI Brady at [facility]
[2023-09-07 01:30] LABS: Reflex Lactic (2 hrs) Add Lactic Reflex
[2023-09-07 01:53] VITALS: BP 123/82; PULSE 75; RESP 19; TEMP 36.8; O2SAT 98
[2023-09-08 12:16] LABS: HBsAg Screen Negative (Negative); HCV Ab Non Reactive (Non Reactive); Hep A Ab, IGM Negative (Negative); Hep B Core Ab, IgM Negative (Negative)
--- NOTE | 2023-09-09 08:28 | PC.NURSE ---
faxed blood culture results to [facility] where pt was transferred.
== END 2023-09-07 01:55 | disposition short-term general hospital (02) ==
PROVIDERS: Emergency Provider Emergency Medicine; PCP Internal Medicine
DX: J96.01 Acute respiratory failure with hypoxia (principal); B95.7 Other staphylococcus as the cause of diseases classified elsewhere; I26.99 Other pulmonary embolism without acute cor pulmonale; K72.00 Acute and subacute hepatic failure without coma; E87.1 Hypo-osmolality and hyponatremia; R94.31 Abnormal electrocardiogram [ECG] [EKG]; F17.210 Nicotine dependence, cigarettes, uncomplicated; J44.9 Chronic obstructive pulmonary disease, unspecified; I10 Essential (primary) hypertension; E78.5 Hyperlipidemia, unspecified
CPT/HCPCS: 36415; 71045; 71275; 74174; 80053; 80074; 82803; 83605; 83880; 84436; 84443; 84484; 85007; 85025; 85378; 85610; 85730; 87040; 93005; 96361; 96365; 96366; 96367; 96375; 99291; Q9967

== ENCOUNTER 2023-10-17 09:10 | Outpatient (CLI) | payer MEDICARE, OTHER, SELFPAY ==
[2023-10-17] MEDS: ALBUTEROL 0.083% 2.5 MG/3 ML NEB IH (09:51)
--- NOTE | 2023-10-17 09:52 | PC.NURSE ---
Pre and Post Spirometry completed without incident. Albuterol 0.083% given via HHN, per written protocol, Pt tolerated tx well.
== END 2023-10-17 23:59 | disposition home or self-care (01) ==
LOC: RT 09:10
PROVIDERS: PCP Nurse Practitioner Family; Visit Provider Internal Medicine Pulmonary Disease
DX: J44.9 Chronic obstructive pulmonary disease, unspecified (principal); F17.210 Nicotine dependence, cigarettes, uncomplicated
CPT/HCPCS: 94010

== ENCOUNTER 2023-10-20 15:03 | Outpatient (CLI) | payer MEDICARE, OTHER, SELFPAY ==
--- NOTE | 2023-10-20 15:04 | CA_ITS ---
FINAL REPORT CLINICAL HISTORY: Swelling, hx DVT, PE's, SOB, hypoxia, smoker, patient takes Eliquis daily. COMPARISON: None FINDINGS: Color Doppler, duplex Doppler and compression sonography of the bilateral lower extremities was performed. There is no evidence of deep venous thrombosis from the level of the groin to the calf. The deep veins are patent and compressible. IMPRESSION: No evidence of deep venous thrombosis bilateral lower extremities. Reviewed, Interpreted and Dictated by Erik Tomas III, MD Transcribed by Velma Cain Authenticated and . [facility]
== END 2023-10-20 23:59 | disposition home or self-care (01) ==
PROVIDERS: PCP Nurse Practitioner Family; Visit Provider Internal Medicine Pulmonary Disease
DX: Z86.718 Personal history of other venous thrombosis and embolism (principal)
CPT/HCPCS: 93970

== ENCOUNTER 2023-10-30 07:28 | Outpatient (CLI) | payer MEDICARE, OTHER, SELFPAY ==
--- NOTE | 2023-10-30 07:29 | NM_ITS ---
APPROVED REPORT Exam: Nuclear Stress Test Indication: Chest pain, SOB, Abnormal EKG, High cholesterol, Tobacco use Patient Location: Outpatient Stress Tech: Olinda Ordaz [place] Tech:Laura Qureshi, ARRT, RT (R)(N) Ht: 5 ft 5 in Wt: 183 lbs Bra Size: 32B HR: 90 bpm BP: 124/71 mmHg BSA: 1.90 m2 Rhythm: NSR TID: 1.06 BMI: 30.4 History: Chest pain, SOB, Abnormal EKG, High cholesterol, Tobacco use Procedure: Patient received 0.4 mg of intravenous Lexiscan, resting heart rate 90 bpm, resting blood pressure 124/71 mmHg, with Lexiscan maximum heart rate achieved was 99 bpm which is % of the maximum predicted heart rate and blood pressure was 124/71 mmHg. With Lexiscan, patient denied any complaint of chest pain. Cardiac Stress and Resting SPECT Images: Cardiac Stress and Resting SPECT images were obtained using technetium 99m Myoview 31.6 mCi stress and 10.29 mCi at rest. The patient could not lie on her abdomen. Therefore, prone stress imaging could not be performed. This may affect the diagnostic interpretation of the study findings. Resting and stress imaging in supine positions demonstrate no fixed or reversible perfusion defects. The right ventricle appears dilated with increased RV wall thickness. Gated imaging demonstrates normal global and regional LV systolic function. LVEF is calculated at 70%. Conclusion: No fixed or reversible perfusion defects. The right ventricle appears dilated with increased RV wall thickness. Correlation with recent or new TTE is recommended. Gated imaging demonstrates normal global and regional LV systolic function. LVEF is calculated at 70%. Electronically signed by : Jamee Almendarez MD 10/30/2023 13:17:29
[2023-10-30] MEDS: REGADENOSON 0.4MG/5ML SYRINGE 0.400000000000000022 MG IV (09:15)
[2023-10-30] MEDS: ISOTOPE MYOVIEW (PER STUDY) 1 DOSE IV (09:16)
[2023-10-30] MEDS: SODIUM CHLORIDE 0.9% 10ML SYR (RAD ONLY) 10 ML IV ×2 (09:16)
--- NOTE | 2023-10-30 09:38 | CA_ITS ---
APPROVED REPORT Exam: Pharmacologic Technologist: Olinda Dumont, Ht: 5 ft 5 in Wt: 183 lbs BSA: 1.90 m2 HR: 92 bpm BP: 124/71 mmHg Rhythm: NSR Medical History Medications: Pantoprazole,,,,, Atorvastatin,,,,, Duoneb,,,,, Nicotine,,,,, Albuterol,,,,, Vit D3,,,,, Pregabalin,,,,, Apixaban,,,,, Trelegy,,,,, Suborone,,,,, ProMETHAZaine,,,,, Stress Test Details Test: LEXISCAN Reason for pharmacologic stress test: physical limitation. HR Resting HR: 90 bpm Max Heart Rate (APMHR): 153 bpm Max HR Achieved: 99 bpm Target HR (85% APMHR): 130 bpm % of APMHR: 65 Recovery HR: 93 bpm BP Resting BP: 124.0/71.0 mmHg Max BP: 124.0/71.0 mmHg Recovery BP: 122.0/66.0 mmHg ECG Resting ECG: NSR Stress ECG: No significant ST changes Arrhythmia: None Clinical Exercise duration: 04:00 min Highest Stage Achieved: Stress ECG Conclusion Symptoms: None Arrhythmias/Ectopy: None ST-T Changes: No significant ST changes Conclusion: Unremarkable Lexiscan stress test. Myoview images reported separately. Test Summary REST . . . . . . . Resting REST 07:13 . . 90 . 124/ 71 . . Stage 1 01:00 . . 95 . . . . Stage 2 01:00 . . 99 . 119/ 63 . . Stage 3 01:00 . . 95 . 112/ 62 . . Stage 4 01:00 . . 94 . 117/ 62 . Stop exercise at 04:00 RECOVERY 01:00 . . 93 . 122/ 66 . . RECOVERY 01:35 . . 94 . 122/ 66 . . Electronically signed by : Jamee Almendarez MD 10/30/2023 13:14:57
== END 2023-10-30 23:59 | disposition home or self-care (01) ==
LOC: RAD 07:29
PROVIDERS: PCP Nurse Practitioner Family; Visit Provider Nurse Practitioner
DX: R94.31 Abnormal electrocardiogram [ECG] [EKG] (principal); R07.89 Other chest pain; Z72.0 Tobacco use; J43.9 Emphysema, unspecified; E78.5 Hyperlipidemia, unspecified
CPT/HCPCS: 78452; 93017; 93018; A9502; J2785

== ENCOUNTER 2023-12-04 10:35 | Outpatient (CLI) | payer MEDICARE, OTHER, SELFPAY ==
[2023-12-04 11:10] LABS: Basophils # 0.1 K/mm3 (0-0.2); Basophils % 0.7 % (0.1-2.0); Eosinophils # 0.1 K/mm3 (0.0-0.4); Eosinophils % 1.5 % (0.1-12.0); Hematocrit 44.8 % (37.0-47.0); Hemoglobin 13.7 g/dL (12.2-16.2); Lymphocytes # 1.4 K/mm3 (0.7-4.5); Lymphocytes % 19.2 % (10-50); Mean Corpuscular HGB Conc 30.6 g/dL (31.8-35.4); Mean Corpuscular Hemoglobin 26.4 pg (27.0-31.2); Mean Corpuscular Volume 86.2 fl (81-99); Mean Platelet Volume 9.3 fl (7.4-10.4); Monocytes # 0.3 K/mm3 (0.1-1.0); Monocytes % 4.5 % (1.7-9.3); Neutrophils # 5.4 K/mm3 (1.8-7.8); Neutrophils % 74.1 % (37.0-80.0); Platelet Count 278 K/mm3 (142-424); White Blood Count 7.3 K/mm3 (4.8-10.8)
[2023-12-04 12:24] LABS: Chloride 103 mmol/L (98-107); Potassium 3.6 mmoL/L (3.5-5.1); Sodium 141 mmol/L (136-145)
[2023-12-04 12:26] LABS: Bilirubin,Unconjugated 0.6 mg/dL (0.0-1.1); Blood Urea Nitrogen 9 mg/dl (7-17); Estimated Glomerular Filt Rate 123 ml/min (>60); GFR (African American) 149 ML/MIN (>60)
[2023-12-04 12:27] LABS: Alanine Aminotransferase 19 U/L (12-78); Albumin Level 3.8 g/dl (3.5-5.0); Alkaline Phosphatase 97 U/L (38-126); Anion Gap 10.6 mEq/L (5-15); Aspartate Amino Transferase 29 U/L (14-36); Bilirubin,Direct 0.1 mg/dl (0.0-0.4); Bilirubin,Indirect 0.6 mg/dL (0.0-0.9); Bilirubin,Total 0.7 mg/dl (0.2-1.3); Calcium 9.2 mg/dl (8.4-10.2); Carbon Dioxide 31 mmol/L (22.0-30.0); Chol/HDL Ratio 2.4 (1-3.5); Cholesterol 132 mg/dl (140-200); Glucose 99 mg/dl (74-100); HDL Cholesterol 55 mg/dl (40-60); Magnesium 1.5 mg/dl (1.6-2.3); Total Protein,Serum 7.1 g/dl (6.3-8.2); Triglycerides 71 mg/dl (30-150); VLDL Cholesterol 14 mg/dL (0-40)
[2023-12-04 12:38] LABS: Direct LDL Cholesterol 52.79 mg/dL (100-129)
[2023-12-04 12:44] LABS: Free T4 (Free Thyroxine) 1.55 ng/dl (0.78-2.19)
[2023-12-04 13:00] LABS: Thyroid Stimulating Hormone 2.06 uIU/mL (0.465-4.68)
== END 2023-12-04 23:59 | disposition home or self-care (01) ==
LOC: LAB 10:38
PROVIDERS: PCP Nurse Practitioner Family; Visit Provider Nurse Practitioner
DX: R60.0 Localized edema (principal); I50.30 Unspecified diastolic (congestive) heart failure; R94.31 Abnormal electrocardiogram [ECG] [EKG]; R07.89 Other chest pain; I26.99 Other pulmonary embolism without acute cor pulmonale; E78.5 Hyperlipidemia, unspecified; R06.09 Other forms of dyspnea; J43.9 Emphysema, unspecified; F17.210 Nicotine dependence, cigarettes, uncomplicated
CPT/HCPCS: 36415; 80048; 80061; 80076; 83735; 84439; 84443; 85025

== ENCOUNTER 2023-12-12 10:05 | Outpatient (CLI) | payer MEDICARE, OTHER, SELFPAY ==
--- NOTE | 2023-12-12 | CA_ITS ---
APPROVED REPORT EXAM: Comprehensive 2D, Doppler, and color-flow Echocardiogram Sanding Supervisor: Yamileth Joseph RCS, RVS Ht: 5 ft 4 in Wt: 185lbs BSA: 1.89 BP: 113/63 mmHg Indications: SOA, CHF, Smoker, COPD, Home o2 Echo Enhancing Agent Comments: Technically limited due to lung impedence 2D Dimensions IVSd 0.57 cm LVEF (Visual) 59.50 % PWd 0.67 cm LA Volume 22.80 mL LVDd 4.28 cm LA Volume Index 12.494333 mL/m2 (M/F) 16-34 LVDs 2.76 cm EF AP4 67.80 % Aortic Root 2.79 cm GL Strain -15.3 % Left Atrium 2.38 cm RVID Base (AP4) 3.85 cm (M/F) 2.5-4.1 LVOT 1.73 cm (M/F) 1.5-2.5 M-Mode Dimensions RVDd 2.39 cm (0.9-2.6) LVDd 4.28 cm (3.5-5.7) Ao Diam 2.48 cm (2.0-3.7) LVDs 3.18 cm (3.5-5.7) IVSd 0.93 cm (0.6-1.1) PWd 0.50 cm (0.6-1.1) EF (Teich) 49.30% EPSs 0.47 cm FS 26.80% EDV (Teich) 79.50 mL TAPSE 0.71 (<1.7) ESV (Teich) 40.30 mL LV Diastology E Decel Time 236 (160-240 msec) E/A Ratio 0.66 MED E' 7.8 (>= 7 cm/sec) MED A' 11.90 cm/s E'/MED E' Ratio 6.91 (<= 14) LAT E' 7.2 (>= 10 cm/sec) LAT A' 14.50 cm/s E/LAT E' Ratio 7.49 (<= 14) Aortic Valve LVOT Max 74.0 (70-110 cm/s) RAVINDRA Index 0.93 cm2/m2 LVOT VTI 14.59 cm AoV Peak Mitchell. 120.0 (50-130 cm/s) AO Mean GR. 2.80 (<5 mmHg) AO VTI 19.6 (18-25 cm) RAVINDRA (VTI) 1.75 (2.5-4.5 cm2) Mitral Valve MV E Max Mitchell. 54.0 (40-130 cm/s) MV A Velocity 82.0 (40-130 cm/s) E/A Ratio 0.66 MV Decel. Time 236 (160-240 ms) Tricuspid Valve TR P. Velocity 230.00 cm/s RAP Estimate 10.00 mmHg RVSP 31.20 mmHg Left Ventricle The left ventricle is normal size. The left ventricular systolic function is normal. The left ventricular ejection fraction is within the normal range. There is increased LV wall thickness. There is normal LV segmental wall motion. Transmitral Doppler flow pattern suggests impaired LV relaxation. LVEF is 55%. Right Ventricle Right ventricle is moderately dilated. Right ventricle is moderately hypokinetic. Atria The left atrium size is normal. The right atrium is mildly dilated. There is no Doppler evidence of interatrial shunt. Aortic Valve The aortic valve is mildly thickened. There is no aortic valvular stenosis. No aortic regurgitation is present. Mitral Valve The mitral valve is normal in structure. No evidence of mitral valve stenosis. Trace mitral regurgitation. Tricuspid Valve The tricuspid valve leaflets are thin and pliable. Trace tricuspid regurgitation. There is insufficient TR jet to estimate RVSP. Pulmonic Valve The pulmonary valve is normal in structure. Trace pulmonic regurgitation. Great Vessels The aortic root is normal in size. The ascending aorta is not well-visualized. IVC is normal in size and collapses >50% with inspiration. Pericardium There is no pericardial effusion. Other Information Study Quality: Fair Conclusion Normal LV systolic function. Moderate RV dilation with moderate reduction in RV function. No significant valvular stenosis or regurgitation. When directly compared to prior study from 04/2023, the RV size and function now appear worse. Electronically signed by : Jamee Almendarez MD 12/17/2023 22:59:04
== END 2023-12-12 23:59 | disposition home or self-care (01) ==
LOC: RT 10:06
PROVIDERS: PCP Nurse Practitioner Family; Visit Provider Nurse Practitioner
DX: R06.02 Shortness of breath (principal); I50.810 Right heart failure, unspecified
CPT/HCPCS: 93306

== ENCOUNTER → 2024-01-11 07:10 | Outpatient (CLI) | payer MEDICARE, OTHER, SELFPAY | LOC: SL 07:11 | PROVIDERS: PCP Nurse Practitioner Family; Visit Provider Nurse Practitioner | DX: G47.33 Obstructive sleep apnea (adult) (pediatric) (principal); R40.0 Somnolence; R06.09 Other forms of dyspnea | CPT/HCPCS: G0399 ==

== ENCOUNTER 2024-01-24 11:12 | Outpatient (CLI) | payer MEDICARE, OTHER, SELFPAY ==
[2024-01-24 12:10] LABS: Blood Urea Nitrogen 11 mg/dl (7-17); Calcium 9.9 mg/dl (8.4-10.2); Carbon Dioxide 36 mmol/L (22.0-30.0); Chloride 95 mmol/L (98-107); Estimated Glomerular Filt Rate 100 ml/min (>60); GFR (African American) 121 ML/MIN (>60); Glucose 121 mg/dl (74-100); Sodium 138 mmol/L (136-145)
== END 2024-01-24 23:59 | disposition home or self-care (01) ==
LOC: LAB 11:13
PROVIDERS: PCP Nurse Practitioner Family; Visit Provider Nurse Practitioner
DX: Z79.899 Other long term (current) drug therapy (principal)
CPT/HCPCS: 36415; 80048

== ENCOUNTER 2024-11-26 22:10 | Inpatient (IN) | payer MEDICARE, OTHER, SELFPAY ==
--- OUTSIDE RECORDS SUMMARY | 2024-11-26 22:21 | XMS_ITS | Clinical Summary ---
Author Organization Healthcare Address [address] [place] [address] Care Team Providers Care Mold Capper Name Role Phone FerminmeseretmagaliTravis [employer] KEEPER Primary Care Provider [phone] Allergies No known active allergies Medications atorvastatin (Lipitor) 10 MG tablet Take 1 tablet (10 mg) by mouth 1 (one) time each day. Active Buprenorphine HCl-Naloxone HCl (Suboxone) 8-[address] 2 Film (16 mg) under the tongue 1 (one) time each day. Active Trelegy Ellipta 100-62.5-25 MCG/ACT aerosol powder Inhale 1 puff 1 (one) time each day. Active pantoprazole (Protonix) 40 MG EC tablet Take 1 tablet (40 mg) by mouth 1 (one) time each day. Active pregabalin (Lyrica) 300 MG capsule Take 1 capsule (300 mg) by mouth 2 (two) times a day. Active promethazine (Phenergan) 25 MG tablet Take 1 tablet (25 mg) by mouth every 8 (eight) hours if needed. Active Active Problems Problem Noted Date Diagnosed Date Bilateral pulmonary embolism 09/12/2023 Obesity (BMI 35.0-39.9 without comorbidity) 08/12 Liver failure without hepatic coma 09/07/2023 Social History Tobacco Use Types Packs/Day Years Used Date Smoking Tobacco: Some Days Cigarettes Tobacco Cessation:Ready to Q uit: Not Asked; Counseling Given: Not Answered Alcohol Use Standard Drinks/Week Comments Not Currently 0 (1 standard drink = 0.6 oz pur e alcohol) Humiliation, Afraid, Rape, and Kick questionnair e Answer Date Recorded Within the last year, have y ou been afraid of your partner or ex-partner? No 09/08/2023 Within the last year, have y ou been humiliated or emotionally abused in other ways by your partner or ex-partner? No Within the last year, have y ou been kicked, hit, slapped, or otherwise physically hurt by your partner or ex-partner? No 09/08/2023 Within the last year, have y ou been raped or forced to have any kind of sexual activity by your partner or ex-partner? No 09/08/2023 Hunger Vital Sign Answer Date Recorded Within the past 12 months, y ou worried that your food would run out before you got the money to buy more. Never true 09/08/19 24 Within the past 12 months, t he food you bought just didn't last and you didn't have money to get more. Never true 09/08/2023 PRAPARE - Transportation Answer Date Re corded In the past 12 months, has l ack of transportation kept you from medical appointments or from getting medications? No 08/11 In the past 12 months, has l ack of transportation kept you from meetings, work, or from getting things needed for daily living? No 09/08/2023 Housing Stability Vital Sign Answer Praneeth e Recorded In the last 12 months, was t here a time when you were not able to pay the mortgage or rent on time? No 09/08/2023 Number of Places Lived in the Last Year Not on f ile 09/08/2023 In the last 12 months, was t here a time when you did not have a steady place to sleep or slept in a snf (including now)? No 09/08/2023 Utilities Answer Date Recorded In the past 12 months has th e AddressReport, gas, oil, or water company threatened to shut off services in your home? No 09/08/2023 Comments Unknown Sex and Gender Information Value Date Recorded Sex Assigned at Not on file Legal Sex Female 8:06 PM EDT Gender Identity Not on file Sexual Orientation Not on file Last Filed Vital Signs Vital Sign Reading Time Taken Comments Blood Pressure 127/56 09/15/2023 8:22 PM EDT Pulse 86 09/15/2023 9:46 PM EDT Temperature 36.5 C (97.7 F) 09/15/2023 8:22 PM EDT Respiratory Rate 18 09/15/2023 9:53 PM EDT Oxygen Saturation 91% 09/15/2023 9:46 PM EDT Inhaled Oxygen Concentration - - Weight 97 kg (213 lb 13.5 oz) 09/15/2023 5:57 AM EDT Height 165.1 cm (5' 5 ) 09/12/2023 8:00 AM EDT Body Mass Index 35.59 09/12/2023 8:00 AM EDT Plan of Treatment Health Maintenance Due Date Last Done Comments [facility]-Bone Density Scan 1956 [facility]-Depression Screening 1956 [facility]-Medicare Annual Wellness (AWV) 1956 [facility]-/Child/Adol SDOH Screenings 1956 [facility]-Obesity Intervention 1962 [facility]- SDOH Screenings 1974 [facility]-Adult SDOH Screenings 1974 [facility]-Hepatitis A Vaccines (1 of 2 - Risk 2-dose series) 1975 CT Colonography 2001 Colonoscopy 2001 FIT-DNA 2001 FIT 2001 FOBT 2001 Sigmoidoscopy 2001 [facility]-Colorectal Cancer Screening 2001 [facility]-Breast Cancer Screening 2006 [facility]-Zoster Vaccines (1 of 2) 2006 [facility]-RSV Vaccine: 60+ Years or (1 - Risk 60-74 years 1-dose series) 2016 [id number] Vaccine (1 - season) 2024 [facility]-Influenza Vaccine (Season Ended) 2025 04/21/2023, 05/17/2021, 03/27/2020, Additional history exists [facility]-DTaP,Tdap,and Td Vaccines (2 - Td or Tdap) 11/14/2026 11/14/2016 [facility]-Pneumococcal Vaccine: 50+ Years Completed 08/31/2022 [facility]-Diabetes: Hemoglobin A1C Discontinued 09/07/2023 [facility]-Hepatitis C Screening Completed 2023, 09/07/2023, 09/07/2023 HPV Vaccines Aged Out No longer eligi ble based on patient's age to complete this topic [facility]-HIB Vaccines Aged Out No longer e ligible based on patient's age to complete this topic [facility]-IPV Vaccines Aged Out No longer e ligible based on patient's age to complete this topic [facility]-Rotavirus Vaccines Aged Out No lo nger eligible based on patient's age to complete this topic Procedures Procedure Name Priority Date/Time Associated Diagnosis Comments ACUTE HEPATITIS PANEL STAT 09/07/2023 3:10 AM EDT HEMOGLOBIN A1C Add-On 09/07/2023 2:37 AM EDT from Last 3 Months or Most Recently Relevant to Health Maintenance Results * Hepatitis panel, acute (09/07/2023 3:10 AM EDT) Hepatitis B Surf Antigen Negative Negative 09/07/2023 4:48 AM EDT [facility] Hepatitis C Antibody Negative Negative 09/07/2023 4:48 AM EDT [facility] Hepatitis A Antibody IgM Negative Negative 09/07/2023 4:48 AM EDT [facility] Hepatitis B Core Antibody IgM Negative Negative 09/07/2023 4:48 AM EDT [facility] Blood Venous blood specimen / Unknown Venipuncture / Unknown 09/07/2023 3:10 AM EDT 09/07/2023 3:15 AM EDT us Ubaldo Tavarez MD LAB BLOOD ORDERABLES Final Res [facility] [address] [place] [address] * (ABNORMAL) Hemoglobin A1c (09/07/2023 2:37 AM EDT) Hemoglobin A1c 6.3(H) <5.7 % 09/07/2023 5:25 AM EDT [facility] Blood Venous blood specimen / Unknown Venipuncture / Unknown 09/07/2023 2:37 AM EDT 09/07/2023 2:42 AM EDT Narrative [facility] - 09/07/2023 5:25 AM EDT HA1C Interpretive Data: Diagnosis of Diabetes: Diabetic > or = 6.5% Pre-diabetic 5.7 to 6.4% Non-diabetic < or = 5.6% Glycemic Targets for Type I and Type II Diabetics: Non- Adults <7.0% Adults <6.0% Children and Adolescents <7.5% Source: [place] [employer]. Standards of medical care in diabetes,2017. Diabetes Care.2017:40 (suppl 1):S1-S135. HbA1c assay performed by an ion-exchange chromatography method that is certified traceable to the DCCT. Nicole Carreon MD LAB BLOOD ORDERABLES Final R [facility] [address] [place] [address] from Last 3 Months or Most Recently Relevant to Health Maintenance Insurance [facility] MEDIC[facility] Advance Directives * Full Code (Latest Code Status on File) Date Activated Date Inactivated Comments 09/07/2023 4:25 AM 09/16/2023 1:09 AM Question Answer Comments Patient has decision-making capacity? Yes Care Teams Mold Capper Relationship Specialty Start Date End Date Travis Kaplan APRN [address] [place] [address] PCP - General 09/18/23
--- NOTE | 2024-11-26 22:22 | ECG_ITS ---
APPROVED REPORT Exam: Resting ECG HR:85 bpm ECG Measurements Heart Rate 85 AXES UT 159 P 84 QRSd 87 QRS 89 QT 361 T 81 QTc [address] depression in lateral and inferior leads without reciprocal elevation Electronically signed by : EMANUEL BARKER, 12/03/2024 07:43:37
[2024-11-26 22:26] VITALS: BP 155/89; PULSE 94; RESP 20; TEMP 37.2; O2SAT 73; BMI 30.7
--- NOTE | 2024-11-26 22:29 | PC.NURSE ---
Attempted IV x2 with no success
[2024-11-26 22:36] VITALS: PULSE 89; O2SAT 92
[2024-11-26] MEDS: IPRATROPIUM/ALBUTEROL 3 ML NEB 9 ML IH (22:36)
--- NOTE | 2024-11-26 22:39 | XR_ITS ---
PROCEDURE INFORMATION: Exam: XR Chest Exam date and time: 11/26/2024 10:56 PM Age: 69 years old Clinical indication: Shortness of breath; Additional info: SOA, hypoxemia TECHNIQUE: Imaging protocol: Radiologic exam of the chest. Views: 1 view. Total images: 1 COMPARISON: CR XR CHEST PORTABLE 09/06/2023 7:04 PM FINDINGS: Tubes, catheters and devices: EKG leads are present. Lungs: Moderate to severe upper lobe predominant centrilobular emphysema. Acute right infrahilar and right basilar peribronchial infiltrates. No focal airspace consolidation. No pulmonary vascular congestion. Pleural spaces: Unremarkable. No pleural effusion. No pneumothorax. Heart/Mediastinum: Unremarkable. No cardiomegaly. No mediastinal widening or hilar enlargement. Vasculature: Atherosclerotic aortic arch. Bones/joints: Osteopenia. Stable chest wall structures. Soft tissues: Breast attenuation artifact. Other findings: Patient rotation to the right. IMPRESSION: 1. Acute right infrahilar and right basilar peribronchial infiltrate/pneumonia. 2. Moderate to severe upper lobe predominant centrilobular emphysema.
--- NOTE | 2024-11-26 22:39 | [facility].EDCP ---
Discharge Plan Disposition Patient Disposition: Admitted Prescriptions Prescriptions: No Action pregabalin 300 mg capsule 300 mg PO BID Qty: 60 2RF buprenorphine-naloxone [Suboxone] 8-2 mg film 2 film sublingual DAILY Patient Comments: PLACE 2 FILMS UNDER THE TONGUE AND ALLOW TO DISSOLVE 1 TIME EACH DAY albuterol sulfate 90 mcg/actuation HFA aerosol inhaler 2 puff IH Q8HP PRN (Reason: shortness of breath or wheezing) Qty: 8.5 2RF fluticasone propionate [Flonase Allergy Relief] 50 mcg/actuation spray,suspension 1 spray intranasal BID PRN (Reason: allergy symptoms) 90 Days Qty: 16 3RF Rx Instructions: administer into each nostril Jardiance 10 mg tablet 10 mg PO DAILY Qty: 30 5RF Eliquis 5 mg tablet See Rx Instructions .ROUTE .COMPLEX Qty: 180 2RF Dose Instruction: TAKE 1 TABLET 2 TIMES EACH DAY Rx Instructions: TAKE 1 TABLET 2 TIMES EACH DAY potassium chloride 20 mEq tablet,ER particles/crystals See Rx Instructions .ROUTE .COMPLEX Qty: 30 3RF Dose Instruction: TAKE 1 TABLET 2 TIMES EACH DAY Rx Instructions: TAKE 1 TABLET 2 TIMES EACH DAY cholecalciferol (vitamin D3) 25 mcg (1,000 unit) capsule 25 mcg PO DAILY 90 Days Qty: 90 3RF Trelegy Ellipta 100-62.5-25 mcg blister with device See Rx Instructions .ROUTE .COMPLEX Qty: 60 3RF Dose Instruction: INHALE 1 DOSE 1 TIME EACH DAY FOR COPD Rx Instructions: INHALE 1 DOSE 1 TIME EACH DAY FOR COPD furosemide 40 mg tablet See Rx Instructions .ROUTE .COMPLEX Qty: 90 3RF Dose Instruction: TAKE 1 TABLET 1 TIME EACH DAY Rx Instructions: TAKE 1 TABLET 1 TIME EACH DAY atorvastatin 10 mg tablet See Rx Instructions .ROUTE .COMPLEX Qty: 90 0RF Dose Instruction: TAKE 1 TABLET 1 TIME EACH DAY AT BEDTIME FOR CHOLESTEROL Rx Instructions: TAKE 1 TABLET 1 TIME EACH DAY AT BEDTIME FOR CHOLESTEROL pantoprazole 40 mg tablet,delayed release (DR/EC) See Rx Instructions .ROUTE .COMPLEX Qty: 90 3RF Dose Instruction: TAKE 1 TABLET 1 TIME EACH DAY Rx Instructions: TAKE 1 TABLET 1 TIME EACH DAY promethazine 25 mg tablet See Rx Instructions .ROUTE .COMPLEX Qty: 60 2RF Dose Instruction: TAKE 1 TABLET EVERY 4 TO 6 HOURS NEEDED FOR NAUSEA AND VOMITING Rx Instructions: TAKE 1 TABLET EVERY 4 TO 6 HOURS NEEDED FOR NAUSEA AND VOMITING ipratropium-albuterol 0.5 mg-3 mg(2.5 mg base)/3 mL solution for nebulization 3 ml IH TID Rx Instructions: one vial in nebulizer tid. stop albuterol nebs Referrals Follow up/Referrals: Travis Kaplan APRN [Primary Care Provider, Family Practice] - See instructions Clinical Impressions Clinical Impression: Acute hypoxemic respiratory failure, Acute exacerbation of chronic obstructive pulmonary disease, Epistaxis Print Language Print Language: Ghanaian Discharge ED Provider: Galindo Alvarado HPI <Galindo Alvarado MD - Last Filed: 11/26/24 23:18> General Chief Complaint: Shortness of Breath/Dyspnea Stated Complaint: Nose Bleeds Time Seen by Provider: 11/26/24 22:16 Mode of Arrival: Wheelchair Source of Information: Patient Description of Symptoms (Recalled from ER Triage Doc. by RN): Pt to ED with c/o intermittent nose bleed that started 4 days ago, worsening today. Pts O2 sat was 73% on RA upon arrival. Pt reports becoming SOA in route to ED. Pt states she has COPD and uses 2L NC PRN at home. Pt was placed on NRB and O2 sat improved to 100%. Pt was then weaned to 2L NC. O2 sat maintaining >92%. History of Present Illness HPI narrative: Please note that above description of symptoms, in this electronic medical record under categorization of recalled from ER triage doctor by RN are reflective of an initial nursing assessment, however, is not reflective of my full history and physical exam that was personally taken and clarified. Consequentially, this preceding description of symptoms, which may include the patient's categorized chief complaint in the EMR, do not reflect my personal clinical impression, and the ultimate description of history of present illness and patient stated complaints should be deferred to this section of the note. Unless stated otherwise or congruent with this section of the note, additional signs, symptoms, or incongruence should be interpreted as inaccurate with my clinical impression. Related Data Home Medications ?Medication ?Instructions ?Recorded ?Confirmed ipratropium 0.5 mg-albuterol 3 mg 3 ml inhalation TID COPD 05/27/22 10/01/24 (2.5 mg base)/3 mL nebulization soln buprenorphine 8 mg-naloxone 2 mg 2 film sublingual DAILY 04/21/23 10/01/24 sublingual film (Suboxone) Previous Rx's ?Medication ?Instructions ?Recorded albuterol sulfate 90 mcg/actuation 2 puff inhalation Q8HP PRN 02/22/23 aerosol inhaler shortness of breath or wheezing #8.5 grams fluticasone propionate 50 1 spray intranasal BID PRN allergy 05/08/24 mcg/actuation nasal symptoms 90 days #16 grams spray,suspension (Flonase Allergy Relief) empagliflozin 10 mg tablet 10 mg PO DAILY #30 tabs 05/30/24 (Jardiance) apixaban 5 mg tablet (Eliquis) See Rx Instructions .Route 07/15/24 .COMPLEX #180 tabs pregabalin 300 mg capsule 300 mg PO BID NEUROPATHY #60 caps 10/01/24 potassium chloride 20 mEq See Rx Instructions .Route 10/21/24 tablet,extended release(part/cryst) .COMPLEX #30 tabs cholecalciferol (vitamin D3) 25 25 mcg PO DAILY 90 days #90 caps 10/22/24 mcg (1,000 unit) capsule fluticasone fur. 100 mcg-umeclid See Rx Instructions .Route 10/25/24 62.5 mcg-vilant 25 mcg .COMPLEX #60 blisters inhalat.powder (Trelegy Ellipta) atorvastatin 10 mg tablet See Rx Instructions .Route 11/18/24 .COMPLEX #90 tabs furosemide 40 mg tablet See Rx Instructions .Route 11/18/24 .COMPLEX #90 tabs pantoprazole 40 mg tablet,delayed See Rx Instructions .Route 11/19/24 release .COMPLEX #90 tabs promethazine 25 mg tablet See Rx Instructions .Route 11/25/24 .COMPLEX #60 tabs Allergies Allergy/AdvReac Type Severity Reaction Status Date / Time No Known Allergies Allergy Verified 10/01/24 10:28 [facility] <Galindo Alvarado MD - Last Filed: 11/26/24 23:18> [facility] Disclaimer: The information contained in this section may have been updated after the patient was seen, as this information can be updated by other users. Medical History CAMACHO (obstructive sleep apnea) Daytime somnolence Snoring (HFpEF) heart failure with preserved ejection fraction Edema of both lower extremities DVT (deep venous thrombosis) Chronic pain Fibromyalgia Candidiasis of mouth Tobacco abuse counseling Tobacco abuse disorder Multiple pulmonary nodules Bronchiectasis without complication Pulmonary emphysema Dyspnea on exertion Community acquired pneumonia COPD (chronic obstructive pulmonary disease) Surgical History History of tubal ligation History of total hysterectomy Hx of cholecystectomy Family History Other No significant family history Social History (Updated 10/01/24 @ 10:30 by Ivana Tabor MA) Smoking Status: Current every day smoker tobacco type: cigarettes packs per day: 1 alcohol intake: never substance use type: former substance user, opiates and painkillers current occupational status: retired Travel in the last 8 weeks?: None household members: family housing: house Have you lived/traveled outside [place] in past 30 days?: No Contact w/someone who lives/traveled outside US past 30 days?: No Exposure to someone with infectious disease in past 14 days?: No Do you have a fever (greater than 100.4 F or 38 C)?: No Have you tested positive for COVID-19?: No Exposed to someone with COVID-19 in past 14 days?: No Do you have a sore throat?: No Do you have a cough?: No Do you have any weakness?: No Do you have any diarrhea?: No Are you experiencing any unusual bleeding?: No Do you have any muscle aches/pain?: No Do you have any abdominal pain?: No Are you experiencing loss of taste or smell?: No Other Medical History Have you received the Flu Vaccine for this season: No Have you received the Pneumonia Vaccine: Yes <Galindo Alvarado MD - Last Filed: 11/26/24 23:18> ROS Obtained: Yes All systems reviewed & no additional complaints except as documented Physical Exam <Galindo Alvarado MD - Last Filed: 11/26/24 23:18> General General appearance: alert and in distress (respiratory ) Neck Neck exam: Present trachea midline Chest Chest inspection: Present normal inspection and symmetric chest wall rise Respiratory Respiratory exam: Present wheezes, accessory muscle use, prolonged expiratory phase and other (Speaking in partial sentences); Absent respiratory distress or stridor Cardiovascular Cardiovascular exam: Present regular rate, normal rhythm and other (Pulses equal and symmetric in upper and lower extremities) Abdominal Exam Abdominal exam: Present soft and distention Extremities Exam Extremities exam: Absent edema Neurological Exam Neurological exam: Present alert, oriented X3 and CN II-XII intact Skin Skin exam: Present warm and dry; Absent cyanosis, diaphoresis or pallor HEART Score <Galindo Alvarado MD - Last Filed: 11/26/24 23:18> HEART Score HEART Score assessment performed?: No <Amina Hamilton MD - Last Filed: 11/27/24 00:26> HEART Score HEART Score assessment performed?: Yes History (anamnesis): Slightly suspicious ECG: Non-specific disturbance Age: >65 years Risk factors: 3 or more risk factors Troponin: </= normal limit HEART Score: 5 Critical Care <Galindo Alvarado MD - Last Filed: 11/26/24 23:18> Critical Care Time Critical Care Time: Yes (respiratory) Attestation: On 11/26/24, the high probability of a clinically significant, sudden or life threatening deterioration of the following system(s) required my full and direct attention, intervention and personal management. The time I documented below is in addition to time spent performing reported procedures but includes the following listed in this critical care notation. Total Time Total Critical Care Time: 35 Medical Decision Making <Galindo Alvarado MD - Last Filed: 11/26/24 23:18> Medical Records Medical records reviewed: Yes I reviewed the patient's medical records. João Inquiry Pt receiving controlled substance: No João was queried for this patient: No Vital Signs Vital Signs: 11/26/24 22:26 11/26/24 22:36 11/26/24 22:36 Temperature 98.9 F Temperature Source Oral Pulse Rate 89 Pulse Rate [Left Radial] 94 H Respiratory Rate 20 Blood Pressure Blood Pressure [Right Arm] 155/89 H Blood Pressure Mean [Right Arm] 111 Blood Pressure Source [Right Arm] Automatic Cuff Blood Pressure Position [Right Arm] Sitting 02 Sat by Pulse Oximetry 73 L 92 L Oxygen Delivery Method Room Air Nasal Cannula Oxygen Flow Rate (LPM) 2 Fraction of Inspired Oxygen 28 11/26/24 23:21 11/26/24 23:22 11/26/24 23:30 Temperature Temperature Source Pulse Rate 89 91 H 89 Pulse Rate [Left Radial] Respiratory Rate 16 14 Blood Pressure 123/86 144/73 H Blood Pressure [Right Arm] Blood Pressure Mean [Right Arm] Blood Pressure Source [Right Arm] Blood Pressure Position [Right Arm] 02 Sat by Pulse Oximetry 91 L 91 L Oxygen Delivery Method Nasal Cannula Nasal Cannula Oxygen Flow Rate (LPM) 2 2 Fraction of Inspired Oxygen 11/27/24 00:00 Temperature Temperature Source Pulse Rate 84 Pulse Rate [Left Radial] Respiratory Rate 15 Blood Pressure 128/65 Blood Pressure [Right Arm] Blood Pressure Mean [Right Arm] Blood Pressure Source [Right Arm] Blood Pressure Position [Right Arm] 02 Sat by Pulse Oximetry 89 L Oxygen Delivery Method Nasal Cannula Oxygen Flow Rate (LPM) 2 Fraction of Inspired Oxygen Lab Data Labs: Lab Results 11/26/24 22:46: WBC 9.5, RBC 5.75 H, Hgb 13.7, Hct 45.2, MCV 78.6 L, MCH 23.8 L, MCHC 30.3 L, RDW 20.2 H, Plt Count 348, MPV 9.7, Neut % (Auto) 72.0, Lymph % (Auto) 18.7, [place] % (Auto) 7.3, Eos % (Auto) 1.3, Baso % (Auto) 0.4, Neut # (Auto) 6.8, Lymph # (Auto) 1.8, [place] # (Auto) 0.7, Eos # (Auto) 0.1, Baso # (Auto) 0.0, VBG pH 7.34, VBG pCO2 62.5 H, VBG pO2 32.6, VBG HCO3 32.6 H, VBG Total CO2 34.5 H, VBG O2 Saturation 62.8, VBG Base Excess 6.7 H, VBG Lactic Acid 1.3, Sodium 141, Potassium 3.4 L, Chloride 99, Carbon Dioxide 37 H, Anion Gap 8.4, BUN 10, Creatinine 0.90, Estimated Creat Clear 71, Estimated GFR 62, Est GFR ( Amer) 75, Glucose 75, Calcium 9.8, Total Bilirubin 0.7, AST 29, ALT 17, Alkaline Phosphatase 124, Troponin I < 0.01, NT-Pro-B Natriuret Pep 140 H, Total Protein 8.9 H D, Albumin 4.4, Globulin 4.5 H, Albumin/Globulin Ratio 1.0 L 11/26/24 22:46 11/26/24 22:46 Response Orders (Tests/Meds): ED MEDICATIONS Discontinued Medications Generic Name Dose Route Start Last Admin Trade Name Satya PRN Reason Stop Dose Admin Albuterol/Ipratropium 9 ml 11/26/24 22:39 11/26/24 22:36 Ipratropium/Albuterol 3 Ml Neb IH 11/26/24 22:40 9 ml ONCE ONE Administration Dexamethasone 10 mg 11/26/24 22:39 11/26/24 22:55 Dexamethasone 4mg Tablet PO 11/26/24 22:40 10 mg ONCE ONE Administration Doxycycline Hyclate 100 mg 11/26/24 23:17 11/26/24 23:20 Doxycycline Hycl 100 Mg Tablet PO 11/26/24 23:18 100 mg ONCE ONE Administration Magnesium Sulfate 2 gm in 50 mls @ 50 mls/hr 11/26/24 22:39 11/26/24 22:55 Magnesium Sulfate 2gm/50ml Premix IV 11/26/24 23:38 50 mls/hr ONCE ONE Administration ORDERS Category Date Time Status CXR --portable [XR chest portable] Stat Exams 11/26/24 22:39 Completed CBC w/Auto Diff [Complete Blood Count Auto Diff] Stat Lab 11/26/24 22:46 Completed CMP [Comprehensive Metabolic Panel] Stat Lab 11/26/24 22:46 Completed Full Resp Panel w/COVID ([facility]) Routine Lab 11/27/24 00:18 Ordered HIV Combo Stat Lab 11/26/24 22:46 Received Hepatitis C Ab Qual. W/ RFX Stat Lab 11/26/24 22:46 Received NT Pro Brain Natriuretic Pep. Stat Lab 11/26/24 22:46 Completed Trop I [Troponin I] Stat Lab 11/26/24 22:46 Completed Troponin I Q3H Lab 11/27/24 01:45 Ordered Troponin I Q3H Lab 11/27/24 04:45 Ordered VBG [Venous Blood Gas] Stat RT 11/26/24 22:46 Completed MDM Narrative Medical Decision Narrative: This is a 69-year-old female presenting with nosebleed. She actually came to the emergency department for nosebleed this been on and off for the last 4 days. When walking into the emergency department, became hypoxemic, very short of breath. Was brought into nearest room, patient placed in bed. Was hypoxemic and speaking in partial sentences, in mild respiratory distress. Patient's nose stopped bleeding after application of nonrebreather mask. Patient states that she was feeling well until walking into the emergency department and immediately started feeling short of breath. Cough is nonproductive, no chest pain, nausea, vomiting, fevers or chills. Has been taking meds as she should. Still smoking, but smoking 3 to 4 cigarettes a day. On 2 L nasal cannula oxygen as needed. History was obtained via conversation with patient. On arrival, patient hemodynamically stable, alert, oriented x4, appropriate, GCS 15, moving all extremities spontaneously, pupils equal and reactive to light. Full physical exam performed and significant for uncomfortable appearing female respiratory distress. Speaking partial sentences, prolonged expiratory phase, increased work of breathing and diffuse end expiratory wheezes with minimal breath sounds bilaterally. Cardiac exam with borderline tachycardia. No lower extremity edema. Pulses equal and symmetric.. Differential includes COPD exacerbation, bronchitis, pneumonia, pneumothorax, ACS, [place], among others. Patient was given dexamethasone, DuoNebs, IV magnesium, supplemental oxygen for symptomatic management and correction of underlying abnormalities. Patient placed on continuous cardiac monitoring and continuous pulse ox with initial blood pressure 155/89, heart rate 94, saturation 73% on room air. Placed on nonrebreather followed by nasal cannula. Independent interpretation of EKG shows sinus rhythm with ST depressions 2, as well as lateral leads. No reciprocal elevations. Workup independently interpreted and significant for nonactionable hematologic labs initially. On independent interpretation of imaging, patient has bilateral atelectasis and scarring, but right sided opacities consistent with developing pneumonia. See radiology read for full review of final results. Prior to rest of workup, care handed off to oncoming physician. Inside Sales Director disclaimer Much of this encounter note is an electronic control systems developer spoken language to printed text. Electronic control systems developer of the spoken language may permit errors. Although I have reviewed the note, some errors may still exist. <Amina Hamilton MD - Last Filed: 11/27/24 00:26> Vital Signs Vital Signs: 11/26/24 22:26 11/26/24 22:36 11/26/24 22:36 Temperature 98.9 F Temperature Source Oral Pulse Rate 89 Pulse Rate [Left Radial] 94 H Respiratory Rate 20 Blood Pressure Blood Pressure [Right Arm] 155/89 H Blood Pressure Mean [Right Arm] 111 Blood Pressure Source [Right Arm] Automatic Cuff Blood Pressure Position [Right Arm] Sitting 02 Sat by Pulse Oximetry 73 L 92 L Oxygen Delivery Method Room Air Nasal Cannula Oxygen Flow Rate (LPM) 2 Fraction of Inspired Oxygen 28 11/26/24 23:21 11/26/24 23:22 11/26/24 23:30 Temperature Temperature Source Pulse Rate 89 91 H 89 Pulse Rate [Left Radial] Respiratory Rate 16 14 Blood Pressure 123/86 144/73 H Blood Pressure [Right Arm] Blood Pressure Mean [Right Arm] Blood Pressure Source [Right Arm] Blood Pressure Position [Right Arm] 02 Sat by Pulse Oximetry 91 L 91 L Oxygen Delivery Method Nasal Cannula Nasal Cannula Oxygen Flow Rate (LPM) 2 2 Fraction of Inspired Oxygen 11/27/24 00:00 Temperature Temperature Source Pulse Rate 84 Pulse Rate [Left Radial] Respiratory Rate 15 Blood Pressure 128/65 Blood Pressure [Right Arm] Blood Pressure Mean [Right Arm] Blood Pressure Source [Right Arm] Blood Pressure Position [Right Arm] 02 Sat by Pulse Oximetry 89 L Oxygen Delivery Method Nasal Cannula Oxygen Flow Rate (LPM) 2 Fraction of Inspired Oxygen Lab Data Labs: Lab Results 11/26/24 22:46: WBC 9.5, RBC 5.75 H, Hgb 13.7, Hct 45.2, MCV 78.6 L, MCH 23.8 L, MCHC 30.3 L, RDW 20.2 H, Plt Count 348, MPV 9.7, Neut % (Auto) 72.0, Lymph % (Auto) 18.7, [place] % (Auto) 7.3, Eos % (Auto) 1.3, Baso % (Auto) 0.4, Neut # (Auto) 6.8, Lymph # (Auto) 1.8, [place] # (Auto) 0.7, Eos # (Auto) 0.1, Baso # (Auto) 0.0, VBG pH 7.34, VBG pCO2 62.5 H, VBG pO2 32.6, VBG HCO3 32.6 H, VBG Total CO2 34.5 H, VBG O2 Saturation 62.8, VBG Base Excess 6.7 H, VBG Lactic Acid 1.3, Sodium 141, Potassium 3.4 L, Chloride 99, Carbon Dioxide 37 H, Anion Gap 8.4, BUN 10, Creatinine 0.90, Estimated Creat Clear 71, Estimated GFR 62, Est GFR ( Amer) 75, Glucose 75, Calcium 9.8, Total Bilirubin 0.7, AST 29, ALT 17, Alkaline Phosphatase 124, Troponin I < 0.01, NT-Pro-B Natriuret Pep 140 H, Total Protein 8.9 H D, Albumin 4.4, Globulin 4.5 H, Albumin/Globulin Ratio 1.0 L Response Orders (Tests/Meds): ED MEDICATIONS Discontinued Medications Generic Name Dose Route Start Last Admin Trade Name Satya PRN Reason Stop Dose Admin Albuterol/Ipratropium 9 ml 11/26/24 22:39 11/26/24 22:36 Ipratropium/Albuterol 3 Ml Neb IH 11/26/24 22:40 9 ml ONCE ONE Administration Dexamethasone 10 mg 11/26/24 22:39 11/26/24 22:55 Dexamethasone 4mg Tablet PO 11/26/24 22:40 10 mg ONCE ONE Administration Doxycycline Hyclate 100 mg 11/26/24 23:17 11/26/24 23:20 Doxycycline Hycl 100 Mg Tablet PO 11/26/24 23:18 100 mg ONCE ONE Administration Magnesium Sulfate 2 gm in 50 mls @ 50 mls/hr 11/26/24 22:39 11/26/24 22:55 Magnesium Sulfate 2gm/50ml Premix IV 11/26/24 23:38 50 mls/hr ONCE ONE Administration ORDERS Category Date Time Status CXR --portable [XR chest portable] Stat Exams 11/26/24 22:39 Completed CBC w/Auto Diff [Complete Blood Count Auto Diff] Stat Lab 11/26/24 22:46 Completed CMP [Comprehensive Metabolic Panel] Stat Lab 11/26/24 22:46 Completed Full Resp Panel w/COVID ([facility]) Routine Lab 11/27/24 00:18 Ordered HIV Combo Stat Lab 11/26/24 22:46 Received Hepatitis C Ab Qual. W/ RFX Stat Lab 11/26/24 22:46 Received NT Pro Brain Natriuretic Pep. Stat Lab 11/26/24 22:46 Completed Trop I [Troponin I] Stat Lab 11/26/24 22:46 Completed Troponin I Q3H Lab 11/27/24 01:45 Ordered Troponin I Q3H Lab 11/27/24 04:45 Ordered VBG [Venous Blood Gas] Stat RT 11/26/24 22:46 Completed MDM Narrative Medical Decision Narrative: This is a 69-year-old female presenting with nosebleed. She actually came to the emergency department for nosebleed this been on and off for the last 4 days. When walking into the emergency department, became hypoxemic, very short of breath. Was brought into nearest room, patient placed in bed. Was hypoxemic and speaking in partial sentences, in mild respiratory distress. Patient's nose stopped bleeding after application of nonrebreather mask. Patient states that she was feeling well until walking into the emergency department and immediately started feeling short of breath. Cough is nonproductive, no chest pain, nausea, vomiting, fevers or chills. Has been taking meds as she should. Still smoking, but smoking 3 to 4 cigarettes a day. On 2 L nasal cannula oxygen as needed. History was obtained via conversation with patient. On arrival, patient hemodynamically stable, alert, oriented x4, appropriate, GCS 15, moving all extremities spontaneously, pupils equal and reactive to light. Full physical exam performed and significant for uncomfortable appearing female respiratory distress. Speaking partial sentences, prolonged expiratory phase, increased work of breathing and diffuse end expiratory wheezes with minimal breath sounds bilaterally. Cardiac exam with borderline tachycardia. No lower extremity edema. Pulses equal and symmetric.. Differential includes COPD exacerbation, bronchitis, pneumonia, pneumothorax, ACS, [place], among others. Patient was given dexamethasone, DuoNebs, IV magnesium, supplemental oxygen for symptomatic management and correction of underlying abnormalities. Patient placed on continuous cardiac monitoring and continuous pulse ox with initial blood pressure 155/89, heart rate 94, saturation 73% on room air. Placed on nonrebreather followed by nasal cannula. Independent interpretation of EKG shows sinus rhythm with ST depressions 2, as well as lateral leads. No reciprocal elevations. Workup independently interpreted and significant for nonactionable hematologic labs initially. On independent interpretation of imaging, patient has bilateral atelectasis and scarring, but right sided opacities consistent with developing pneumonia. See radiology read for full review of final results. Prior to rest of workup, care handed off to oncoming physician. Inside Sales Director disclaimer Much of this encounter note is an electronic control systems developer spoken language to printed text. Electronic control systems developer of the spoken language may permit errors. Although I have reviewed the note, some errors may still exist. Hamilton: Upon my assumption of care patient is stable and saturating in the low 90s on 2 L nasal cannula. I agree with the assessment and plan from Dr. Alvarado. Patient has received DuoNebs, steroids, doxycycline. Chest x-ray is concerning for patchy multifocal infiltrates. On reassessment she is not having any nosebleeding but has desaturated to 87% on her home oxygen without any provocation, at rest. He was increased to 4 L nasal cannula and came up to 91%. I am concerned with the patchy appearance of her lungs that she has a multifocal pneumonia and potentially an underlying viral etiology including potentially parainfluenza which has recently been causing significant difficulties for COPD patients. Patient is showing signs of acute hypoxic respiratory failure despite her home oxygen support and interventions in the ER and I believe she requires admission to the hospital. She is comfortable with this plan. Full respiratory panel was added to workup. I discussed this case with the hospitalist who graciously accepted the patient for admission. She was admitted in stable condition.
--- NOTE | 2024-11-26 22:50 | PC.NURSE ---
USG IV placed to MAURO
[2024-11-26] MEDS: MAGNESIUM SULFATE IN WATER 2 GM/50 ML PIGGYBACK IV (22:55)
[2024-11-26] MEDS: DEXAMETHASONE 4MG TABLET 10 MG PO (22:55)
[2024-11-26 23:02] LABS: Basophils % 0.4 % (0.1-2.0); Eosinophils # 0.1 Kmm3 (0.0-0.4); Eosinophils % 1.3 % (0.1-12.0); Hematocrit 45.2 % (37.0-47.0); Hemoglobin 13.7 g/dL (12.2-16.2); Immature Granulocytes # 0.03 10^3uL; Immature Granulocytes % 0.3 %; Lymphocytes # 1.8 K/mm3 (0.7-4.5); Lymphocytes % 18.7 % (10-50); Mean Corpuscular HGB Conc 30.3 g/dL (31.8-35.4); Mean Corpuscular Hemoglobin 23.8 pg (27.0-31.2); Mean Corpuscular Volume 78.6 fl (81-99); Mean Platelet Volume 9.7 fl (7.4-10.4); Monocytes # 0.7 K/mm3 (0.1-1.0); Monocytes % 7.3 % (1.7-9.3); Neutrophils # 6.8 K/mm3 (1.8-7.8); Nucleated Red Blood Cells # 0 10^3/uL; Nucleated Red Blood Cells % 0 %; Platelet Count 348 K/mm3 (142-424); Red Blood Count 5.75 M/mm3 (4.20-5.40); Red Cell Distribution Width 20.2 % (11.5-17.5); Red Cell Distribution Width-SD 54.8 fL; White Blood Count 9.5 K/mm3 (4.8-10.8)
[2024-11-26 23:06] LABS: Lactate Venous 1.3 mmol/L (0.4-2.0); VBG Base Excess 6.7 mmol/L (-2.4-2.3); VBG HCO3 32.6 mmol/L (23-30); VBG Oxygen Saturation 62.8 % (50-70); VBG PH 7.34 mmol/L (7.31-7.41); VBG PO2 32.6 mmol/L (28-40); VBG Total CO2 34.5 mmol/L (23-27)
[2024-11-26 23:11] LABS: Alanine Aminotransferase 17 U/L (12-78); Albumin Level 4.4 g/dl (3.5-5.0); Alkaline Phosphatase 124 U/L (38-126); Anion Gap 8.4 mEq/L (5-15); Aspartate Amino Transferase 29 U/L (14-36); Bilirubin,Total 0.7 mg/dl (0.2-1.3); Blood Urea Nitrogen 10 mg/dl (7-17); Calcium 9.8 mg/dl (8.4-10.2); Carbon Dioxide 37 mmol/L (22.0-30.0); Chloride 99 mmol/L (98-107); Creatinine Clearance Estimated 71 mL/min (50-200); Estimated Glomerular Filt Rate 62 ml/min (>60); GFR (African American) 75 ML/MIN (>60); Globulin 4.5 g/dL (1.3-3.2); Glucose 75 mg/dl (74-100); Potassium 3.4 mmoL/L (3.5-5.1); Sodium 141 mmol/L (136-145); Total Protein,Serum 8.9 g/dl (6.3-8.2)
[2024-11-26 23:13] LABS: VBG PCO2 62.5 mmol/L (35-51)
[2024-11-26 23:20] LABS: NT Pro Brain Natriuretic Pep. 140 pg/mL (0-125)
[2024-11-26] MEDS: DOXYCYCLINE HYCL 100 MG TABLET PO (23:20)
[2024-11-26 23:21] VITALS: PULSE 89
[2024-11-26 23:22] VITALS: BP 123/86; PULSE 91; RESP 16; O2SAT 91
[2024-11-26 23:22] LABS: Troponin I < 0.01 ng/ml (0.00-0.034)
--- NOTE | 2024-11-26 23:23 | PC.NURSE ---
medicated per AUG. Klevanx given per request. No other needs voiced at this time.
[2024-11-26 23:30] VITALS: BP 144/73; PULSE 89; RESP 14; O2SAT 91
[2024-11-27] VITALS (14 sets, daily range): BP systolic 100–138; BP diastolic 50–95; PULSE 65–84; RESP 14–22; TEMP 36.4–37.2; O2SAT 88–93; BMI 31.9
--- NOTE | 2024-11-27 00:19 | PC.NURSE ---
Addendum entered by Gretchen Padilla RN 11/27/24 00:21: Pt titrated to 4L NC per MD Hamilton. Original Note: pt 87% on 2L NC. MD Hamilton aware. Pt titrated to 3L NC at this time.
--- NOTE | 2024-11-27 00:22 | PC.NURSE ---
Hamilton speaking to hospitalist for admission
[2024-11-27 00:27] LABS: Adenovirus,PCR Not Detected (NotDetected); Bordetella Pertussis Not Detected (NotDetected); Chlamydophila Pneumoniae, PCR Not Detected (NotDetected); Coronavirus 19, PCR Not Detected (NotDetected); Coronavirus 229E Not Detected (NotDetected); Coronavirus NL63 Not Detected (NotDetected); Coronavirus OC43 Not Detected (NotDetected); Coronovirus HKU1,PCR Not Detected (NotDetected); Human Metapneumovirus Not Detected (NotDetected); Influenza A, PCR Not Detected (NotDetected); Influenza AH1, 2009 Not Detected (NotDetected); Influenza AH1, PCR Not Detected (NotDetected); Influenza AH3,PCR Not Detected (NotDetected); Influenza B, PCR Not Detected (NotDetected); Mycoplasma Pneumoniae, PCR Not Detected (NotDetected); Parainfluenza 1, PCR Not Detected (NotDetected); Parainfluenza 2, PCR Not Detected (NotDetected); Parainfluenza 3, PCR Not Detected (NotDetected); Parainfluenza 4, PCR Not Detected (NotDetected); Respiratory Syncytial Virus Not Detected (NotDetected); Rhinovirus/Enterovirus Not Detected (NotDetected)
[2024-11-27 00:28] LABS: HIV Combo NEGATIVE (Negative)
[2024-11-27 00:37] LABS: Hepatitis C Ab Qual. W/ RFX NEGATIVE (Negative)
--- NOTE | 2024-11-27 00:37 | P.HP_ITS ---
<Statement entered by Cr Heard MD - 11/27/24 14:02> Rounded on patient after nurse practitioner. Personally examined and interviewed patient. Agree with exam findings and care plan as documented. History of Present Illness *Admission Date: 11/27/24 *Reason for visit:: Nosebleed *History of present illness: This is a 69-year-old female who has a past medical history significant for obstructive sleep apnea, HFpEF, DVT, pulmonary embolism, fibromy algia, current smoker, bronchiectasis, pulmonary emphysema, and COPD who presents with a chief complaint of a nosebleed. Due to patient's symptoms, she presented to the emergency room for evaluation. While in the emergency room, patient's nosebleeding resolved; however, patient was found to be acutely hypoxic on room air with room air saturations at 79%. Patient was placed on nonrebreather and her oxygen saturations improved to 100%. While in the emergency room, she was weaned to 4 L; however, her chest x-ray was consistent with right middle and right lower lobe pneumonia. As a result of these findings, patient is being admitted for further management. During my evaluation of the patient, patient states that her nose started to bleed spontaneous. She is currently prescribed Eliquis and management of DVT/pulmonary embolism. As far as her respiratory status, patient states she wears home O2 as needed at home. She voices no prior cough or wheezing. Moreover, she is denying any PND, orthopnea, lower extremity swelling, exposure to sick individuals, chest pain, lightheadedness, dizziness, fever, chills, rigors, nausea, vomiting, cough or diarrhea. Additional pertinent vitals obtained include a red blood cell count 5.7, pCO2 of 62.5, HCO3 32.6, potassium of 3.4, carbon oxide of 37, BNP of 140, and total protein 8.9. I independently reviewed patient's chest x-ray and it shows right heel large right basilar infiltrate with moderate to severe upper lobe centrilobular emphysema. I independently reviewed patient's EKG and it reveals a sinus rhythm, QTc of 403, normal axis, and no evidence of ST segment elevation or depression [facility] Disclaimer: The information contained in this section may have been updated after the patient was seen, as this information can be updated by other users. Medical History CAMACHO (obstructive sleep apnea) Daytime somnolence Snoring (HFpEF) heart failure with preserved ejection fraction Edema of both lower extremities DVT (deep venous thrombosis) Chronic pain Fibromyalgia Candidiasis of mouth Tobacco abuse counseling Tobacco abuse disorder Multiple pulmonary nodules Bronchiectasis without complication Pulmonary emphysema Dyspnea on exertion Community acquired pneumonia COPD (chronic obstructive pulmonary disease) Surgical History History of tubal ligation History of total hysterectomy Hx of cholecystectomy Family History Other No significant family history Social History (Updated 10/01/24 @ 10:30 by Ivana Tabor MA) Smoking Status: Current every day smoker tobacco type: cigarettes packs per day: 1 alcohol intake: never substance use type: former substance user, opiates and painkillers current occupational status: retired Travel in the last 8 weeks?: None household members: family housing: house Have you lived/traveled outside [place] in past 30 days?: No Contact w/someone who lives/traveled outside [place] past 30 days?: No Exposure to someone with infectious disease in past 14 days?: No Do you have a fever (greater than 100.4 F or 38 C)?: No Have you tested positive for COVID-19?: No Exposed to someone with COVID-19 in past 14 days?: No Do you have a sore throat?: No Do you have a cough?: No Do you have any weakness?: No Do you have any diarrhea?: No Are you experiencing any unusual bleeding?: No Do you have any muscle aches/pain?: No Do you have any abdominal pain?: No Are you experiencing loss of taste or smell?: No Other Medical History Have you received the Flu Vaccine for this season: No Have you received the Pneumonia Vaccine: Yes Review of Systems Constitutional Constitutional: Reports system reviewed and no additional complaints, except as documented Eyes Eyes: Reports system reviewed and no additional complaints, except as documented ENT Ears, Nose, Mouth, and Throat: Reports epistaxis *Cardiovascular Cardiovascular: Reports system reviewed and no additional complaints, except as documented *Respiratory Respiratory: Reports system reviewed and no additional complaints, except as documented *Gastrointestinal Gastrointestinal: Reports system reviewed and no additional complaints, except as documented *Genitourinary Genitourinary: Reports system reviewed and no additional complaints, except as documented *Musculoskeletal Musculoskeletal: Reports system reviewed and no additional complaints, except as documented Integumentary/Breasts Skin/Breast: Reports system reviewed and no additional complaints, except as documented *Neurologic Neurologic: Reports system reviewed and no additional complaints, except as documented Psychiatric Psychiatric: Reports system reviewed and no additional complaints, except as documented Endocrine Endocrine: Reports system reviewed and no additional complaints, except as documented Hematologic/Lymphatic Hematologic/Lymphatic: Reports system reviewed and no additional complaints, except as documented Allergic/Immunologic Allergic/Immunologic: Reports system reviewed and no additional complaints, except as documented Meds Home Medications and Allergies Home Medications ?Medication ?Instructions ?Recorded ?Confirmed ?Type ipratropium 0.5 mg-albuterol 3 mg 3 ml inhalation TID COPD 05/27/22 10/01/24 History (2.5 mg base)/3 mL nebulization soln albuterol sulfate 90 mcg/actuation 2 puff inhalation Q 8HP PRN 02/22/23 10/01/24 Rx aerosol inhaler shortness of breath or wheez ing #8.5 grams buprenorphine 8 mg-naloxone 2 mg 2 film sublingual GIOVANNI LY 04/21/23 10/01/24 History sublingual film (Suboxone) fluticasone propionate 50 1 spray intranasal BID PRN a llergy 05/08/24 10/01/24 Rx mcg/actuation nasal symptoms 90 days #16 grams spray,suspension (Flonase Allergy Relief) empagliflozin 10 mg tablet 10 mg PO DAILY #30 tabs 10/01/24 Rx (Jardiance) apixaban 5 mg tablet (Eliquis) See Rx Instructions .Ro stella 07/15/24 10/01/24 Rx .COMPLEX #180 tabs pregabalin 300 mg capsule 300 mg PO BID NEUROPATHY #60 caps 10/01/24 10/01/24 Rx potassium chloride 20 mEq See Rx Instructions .Route 0 10/21/24 Rx tablet,extended release(part/cryst) .COMPLEX #30 tabs cholecalciferol (vitamin D3) 25 25 mcg PO DAILY 90 day s #90 caps 10/22/24 Rx mcg (1,000 unit) capsule fluticasone fur. 100 mcg-umeclid See Rx Instructions . Route 10/25/24 Rx 62.5 mcg-vilant 25 mcg .COMPLEX #60 blisters inhalat.powder (Trelegy Ellipta) atorvastatin 10 mg tablet See Rx Instructions .Route 0 11/18/24 Rx .COMPLEX #90 tabs furosemide 40 mg tablet See Rx Instructions .Route 0 11/18/24 Rx .COMPLEX #90 tabs pantoprazole 40 mg tablet,delayed See Rx Instructions .Route 11/19/24 Rx release .COMPLEX #90 tabs promethazine 25 mg tablet See Rx Instructions .Route 0 11/25/24 Rx .COMPLEX #60 tabs New Prescriptions to Start Prescriptions: Allergies Allergy/AdvReac Type Severity Reaction Status Date / Time No Known Allergies Allergy Verified 10/01/24 10:28 Exam Data for Last 24 hours Vital signs and Labs for Last 24 Hours: Temp Pulse Resp BP Pulse Ox O2 Del Method O2 Flow Rate 98.9 F 84 15 128/65 89 L Nasal Cannula 2 11/26/24 22:26 11/27/24 00:00 11/27/24 00:00 11/27/24 00:00 11/27/24 00:00 11/27/24 00:00 11/27/24 00:00 FiO2 28 11/26/24 22:36 Laboratory Results - last 24 hr 11/26/24 22:46: WBC 9.5, RBC 5.75 H, Hgb 13.7, Hct 45.2, MCV 78.6 L, MCH 23.8 L, MCHC 30.3 L, RDW 20.2 H, Plt Count 348, MPV 9.7, Neut % (Auto) 72.0, Lymph % (Auto) 18.7, [place] % (Auto) 7.3, Eos % (Auto) 1.3, Baso % (Auto) 0.4, Neut # (Auto) 6.8, Lymph # (Auto) 1.8, [place] # (Auto) 0.7, Eos # (Auto) 0.1, Baso # (Auto) 0.0, VBG pH 7.34, VBG pCO2 62.5 H, VBG pO2 32.6, VBG HCO3 32.6 H, VBG Total CO2 34.5 H, VBG O2 Saturation 62.8, VBG Base Excess 6.7 H, VBG Lactic Acid 1.3, Sodium 141, Potassium 3.4 L, Chloride 99, Carbon Dioxide 37 H, Anion Gap 8.4, BUN 10, Creatinine 0.90, Estimated Creat Clear 71, Estimated GFR 62, Est GFR ( Amer) 75, Glucose 75, Calcium 9.8, Total Bilirubin 0.7, AST 29, ALT 17, Alkaline Phosphatase 124, Troponin I < 0.01, NT-Pro-B Natriuret Pep 140 H, Total Protein 8.9 H D, Albumin 4.4, Globulin 4.5 H, Albumin/Globulin Ratio 1.0 L , HCV Ab ARTURO w/Rflx PCR Qn Negative, HIV Ag/Ab Combo Qual Negative I & O for Last 24 hours: Intake & Output 11/24/24 11/25/24 11/26/24 11/27/24 23:59 23:59 23:59 23:59 Weight 83.915 kg Constitutional Constitutional: no acute distress, obese and cooperative *Routine HEENT Exam Head: Present normocephalic and atraumatic Eye: Present EOMI and PERRL ENT: Present mucous membranes moist *Routine Neck Exam Neck: Present supple, full ROM and trachea midline *Routine Respiratory Exam Respiratory: Present wheezes, distant breath sounds and diminished air movement *Routine Cardiovascular Exam Cardiovascular: Present RRR, Normal S1 and Normal S2 *Routine Abdominal Exam Abdominal: Present soft, normoactive bowel sounds and obese *Routine Rectal Exam Rectal:: deferred *Routine Genitalia Exam Genitalia:: deferred *Routine Extremities Exam Extremities: Present full ROM and pulses intact Routine Back/Spine/Pelvis Exam Back/Spine: Present full ROM *Routine Skin Exam Skin: Present intact, dry, warm and normal turgor *Routine Neurological Exam Neurological: Present alert, oriented X3, CN II-XII intact, moving all extremities and normal speech Routine Psychiatric Exam Psychiatric: Present normal affect, normal thought process, cooperative, good insight and good judgment H&P: Result Impressions This is a 69-year-old female who presents with a chief complaint of epistasis that spontaneous resolved, and she had an incidental finding of acute hypoxemia. VBG is consistent with chronic hypercapnia. Patient is nontoxic and without any significant respiratory compromise/distress Assessment and Plan *Assessment and plan (1) Pneumonia: Status: Acute Qualifiers: Pneumonia type: due to unspecified organism Laterality: right Lung location: lower lobe of lung Qualified Code(s): J18.9 - Pneumonia, unspecified organism Category: Medical Code(s): J18.9 - Pneumonia, unspecified organism (2) Acute on chronic respiratory failure with hypoxia and hypercapnia: Status: Acute Category: Medical Code(s): J96.21 - Acute and chronic respiratory failure with hypoxia; J96.22 - Acute and chronic respiratory failure with hypercapnia (3) Acute exacerbation of chronic obstructive pulmonary disease: Status: Acute Category: Medical Code(s): J44.1 - Chronic obstructive pulmonary disease with (acute) exacerbation (4) Epistaxis: Status: Acute Category: Medical Code(s): R04.0 - Epistaxis Plan Assessment: Community-acquired pneumonia: - Will continue 750 mg of levofloxacin p.o. daily - Obtain procalcitonin - Will monitor patient's white blood cell count daily Acute on chronic hypoxic hypercapnic respiratory failure COPD exacerbation - Will continue to supply patient with several monitor to maintain oxygen saturation greater 90-92% - DuoNebs every 6 hours - 40 mg of Solu-Medrol IV twice daily - 0.5 mg of budesonide nebulized treatment twice daily Epistasis -Most likely due to ex alpha inhibitor therapy - Has resolved -If patient continues to have bleeding we will attempt to use Afrin Plan: Admit patient to the MedSurg unit Will continue patient's Eliquis once patient's med rec is updated Activity as tolerated Cardiac diet CBC/BMP daily I have a respiratory panel pending to rule out any viral illness that would be contributing to patient's symptomology 5 mg of [place] p.o. every 4 hours for moderate pain 21 mg nicotine patch daily Full code I will discussed this case with attending physician Dr. Heard and I look for tomorrow put
--- NOTE | 2024-11-27 01:13 | PC.NURSE ---
report called to Liam Horan RN
--- NOTE | 2024-11-27 01:24 | PC.NURSE ---
Patient arrived to floor via stretcher from ED at 01:23.
--- NOTE | 2024-11-27 02:03 | PC.NURSE ---
patient arrived to the 2nd floor with increased oxygen requirements - typically wears 2L NC PRN at home, now requires 4L NC for sats >90%. scattered scabbing and scars all over body. bowel sounds active, abd extremely distended and firm, denies tenderness - states for the last year she only has a bm [id number] and its roughly been 2 weeks since her last bm - asked pt if she has ever went to the dr or takes anything for constipation, denies both hx of sharyn and refuses cpap, doesn't wear one at home confirmed home medication by patient bed alarm on for safety r/t soa and increased oxygen requirements
[2024-11-27] MEDS: PROMETHAZINE HCL 25MG/ML 1ML VIAL 12.5 MG IV ×3 (02:07→20:26)
[2024-11-27 03:22] LABS: Troponin I < 0.01 ng/ml (0.00-0.034)
[2024-11-27 05:26] LABS: Anion Gap 6.6 mEq/L (5-15); Blood Urea Nitrogen 12 mg/dl (7-17); Calcium 9.6 mg/dl (8.4-10.2); Carbon Dioxide 34 mmol/L (22.0-30.0); Chloride 100 mmol/L (98-107); Creatinine Clearance Estimated 74 mL/min (50-200); Estimated Glomerular Filt Rate 99 ml/min (>60); GFR (African American) 120 ML/MIN (>60); Glucose 153 mg/dl (74-100); Potassium 3.6 mmoL/L (3.5-5.1); Sodium 137 mmol/L (136-145)
[2024-11-27 05:40] LABS: Troponin I < 0.01 ng/ml (0.00-0.034)
[2024-11-27 05:43] LABS: Procalcitonin 0.045 ng/mL (0.0-2.0)
[2024-11-27 05:49] LABS: Basophils % 0.3 % (0.1-2.0); Eosinophils % 0.1 % (0.1-12.0); Hematocrit 42.6 % (37.0-47.0); Hemoglobin 13.2 g/dL (12.2-16.2); Immature Granulocytes # 0.05 10^3uL; Immature Granulocytes % 0.5 %; Lymphocytes # 0.6 K/mm3 (0.7-4.5); Lymphocytes % 5.2 % (10-50); Mean Corpuscular Volume 77.3 fl (81-99); Mean Platelet Volume 10.1 fl (7.4-10.4); Monocytes # 0.1 K/mm3 (0.1-1.0); Monocytes % 0.9 % (1.7-9.3); Neutrophils # 9.8 K/mm3 (1.8-7.8); Nucleated Red Blood Cells # 0 10^3/uL; Nucleated Red Blood Cells % 0 %; Platelet Count 316 K/mm3 (142-424); Red Blood Count 5.51 M/mm3 (4.20-5.40); Red Cell Distribution Width 19.8 % (11.5-17.5); Red Cell Distribution Width-SD 53.2 fL; White Blood Count 10.5 K/mm3 (4.8-10.8)
[2024-11-27] MEDS: IPRATROPIUM/ALBUTEROL 3 ML NEB IH ×3 (06:20→18:21)
[2024-11-27] MEDS: BUDESONIDE 0.5MG/2ML NEB 0.5 MG IH ×2 (06:21→18:21)
[2024-11-27 08:57] LABS: Magnesium 2.1 mg/dl (1.6-2.3)
--- NOTE | 2024-11-27 09:35 | EXP.PULM.CON ---
History of Present Illness History of present illness: Ms. Luo is a 69-year-old male greater than [id number] smoking history, COPD, chronic hypoxic respiratory failure on 2 L nasal cannula oxygen supplementation at baseline, history of pulmonary embolism (august 2023) and DVT on anticoagulation, pulmonary nodules presented to the ER Complaining of nasal bleeds also found to be hypoxic respiratory failure needing increasing oxygen consult pulmonary was called for further evaluation and management. [facility] Disclaimer: The information contained in this section may have been updated after the patient was seen, as this information can be updated by other users. Medical History CAMACHO (obstructive sleep apnea) Daytime somnolence Snoring (HFpEF) heart failure with preserved ejection fraction Edema of both lower extremities DVT (deep venous thrombosis) Chronic pain Fibromyalgia Candidiasis of mouth Tobacco abuse counseling Tobacco abuse disorder Multiple pulmonary nodules Bronchiectasis without complication Pulmonary emphysema Dyspnea on exertion Community acquired pneumonia COPD (chronic obstructive pulmonary disease) Surgical History History of tubal ligation History of total hysterectomy Hx of cholecystectomy Family History Other No significant family history Social History (Updated 11/27/24 @ 02:11 by Steph Horan RN) Smoking Status: Current every day smoker tobacco type: cigarettes packs per day: 1 alcohol intake: former substance use type: former substance user, heroin, opiates and painkillers current occupational status: retired Travel in the last 8 weeks?: None household members: family housing: house Have you lived/traveled outside US in past 30 days?: No Contact w/someone who lives/traveled outside US past 30 days?: No Exposure to someone with infectious disease in past 14 days?: No Do you have a fever (greater than 100.4 F or 38 C)?: No Have you tested positive for COVID-19?: No Exposed to someone with COVID-19 in past 14 days?: No Do you have a sore throat?: No Do you have a cough?: No Do you have any weakness?: No Do you have any diarrhea?: No Are you experiencing any unusual bleeding?: No Do you have any muscle aches/pain?: No Do you have any abdominal pain?: No Are you experiencing loss of taste or smell?: No Review of Systems Constitutional Constitutional: Reports anorexia, Reports body ache(s) and Reports fatigue Eyes Eyes: Denies eye discharge, Denies dry eyes, Denies irritation and Denies itchy eyes ENT Ears, Nose, Mouth, and Throat: Reports epistaxis, Denies facial pain, Denies lip swelling and Denies throat swelling *Cardiovascular Cardiovascular: Reports dyspnea and Reports dyspnea on exertion *Respiratory Respiratory: Denies change in phlegm color, Reports chest congestion, Reports cough, Reports dyspnea, Reports dyspnea on exertion, Reports excessive phlegm production and Reports wheezing *Gastrointestinal Gastrointestinal: Denies abdominal pain, Denies belching and Denies cramping *Musculoskeletal Musculoskeletal: Reports back pain, Reports myalgias and Reports other (No small joint swelling or Pain) *Neurologic Neurologic: Reports system reviewed and no additional complaints, except as documented Psychiatric Psychiatric: Denies homicidal ideation and Denies suicidal ideation Endocrine Endocrine: Reports fatigue and Denies heat intolerance Hematologic/Lymphatic Hematologic/Lymphatic: Denies easy bleeding and Denies lymphadenopathy Allergic/Immunologic Allergic/Immunologic: Denies itchy eyes, Denies lip swelling, Denies throat swelling and Reports wheezing Pulmonology Exam Inpatient Vital signs and Labs for Last 24 Hours: Temp Pulse Resp BP Pulse Ox O2 Del Method O2 Flow Rate 97.5 F L 80 18 122/67 89 L Nasal Cannula 5 11/27/24 08:00 11/27/24 08:00 11/27/24 08:00 11/27/24 08:00 11/27/24 08:00 11/27/24 08:00 11/27/24 08:00 FiO2 36 11/27/24 02:05 Laboratory Results - last 24 hr 11/26/24 22:46: WBC 9.5, RBC 5.75 H, Hgb 13.7, Hct 45.2, MCV 78.6 L, MCH 23.8 L, MCHC 30.3 L, RDW 20.2 H, Plt Count 348, MPV 9.7, Neut % (Auto) 72.0, Lymph % (Auto) 18.7, Whitley % (Auto) 7.3, Eos % (Auto) 1.3, Baso % (Auto) 0.4, Neut # (Auto) 6.8, Lymph # (Auto) 1.8, Whitley # (Auto) 0.7, Eos # (Auto) 0.1, Baso # (Auto) 0.0, VBG pH 7.34, VBG pCO2 62.5 H, VBG pO2 32.6, VBG HCO3 32.6 H, VBG Total CO2 34.5 H, VBG O2 Saturation 62.8, VBG Base Excess 6.7 H, VBG Lactic Acid 1.3, Sodium 141, Potassium 3.4 L, Chloride 99, Carbon Dioxide 37 H, Anion Gap 8.4, BUN 10, Creatinine 0.90, Estimated Creat Clear 71, Estimated GFR 62, Est GFR ( Amer) 75, Glucose 75, Calcium 9.8, Total Bilirubin 0.7, AST 29, ALT 17, Alkaline Phosphatase 124, Troponin I < 0.01, NT-Pro-B Natriuret Pep 140 H, Total Protein 8.9 H D, Albumin 4.4, Globulin 4.5 H, Albumin/Globulin Ratio 1.0 L, HCV Ab ARTURO w/Rflx PCR Qn Negative, HIV Ag/Ab Combo Qual Negative 11/27/24 00:22: Chlamy pneumoniae PCR Not detected, Adenovirus (PCR) Not detected, B. pertussis DNA (PCR) Not detected, Coronavirus OC43 (PCR) Not detected, Coronavirus HKU1 (PCR) Not detected, Coronavirus 229E (PCR) Not detected, SARS-CoV-2 (PCR) Not detected, Coronavirus NL63 (PCR) Not detected, Human Metapneumovir PCR Not detected, Influenza A (H1) PCR Not detected, Influ A (H1N1/09) PCR Not detected, Influenza A (H3) PCR Not detected, Influenza Type A (PCR) Not detected, Influenza Type B (PCR) Not detected, M. pneumoniae (PCR) Not detected, Parainfluenza 1 (PCR) Not detected, Parainfluenza 2 (PCR) Not detected, Parainfluenza 3 (PCR) Not detected, Parainfluenza 4 (PCR) Not detected, RSV (PCR) Not detected, Entero/Rhino (PCR) Not detected 11/27/24 02:28: Troponin I < 0.01 11/27/24 04:45: WBC 10.5, RBC 5.51 H, Hgb 13.2, Hct 42.6, MCV 77.3 L, MCH 24.0 L, MCHC 31.0 L, RDW 19.8 H, Plt Count 316, MPV 10.1, Neut % (Auto) 93.0 H, Lymph % (Auto) 5.2 L, Whitley % (Auto) 0.9 L, Eos % (Auto) 0.1, Baso % (Auto) 0.3, Neut # (Auto) 9.8 H, Lymph # (Auto) 0.6 L, Whitley # (Auto) 0.1, Eos # (Auto) 0.0, Baso # (Auto) 0.0, Sodium 137, Potassium 3.6, Chloride 100, Carbon Dioxide 34 H, Anion Gap 6.6, BUN 12, Creatinine 0.60 D, Estimated Creat Clear 74, Estimated GFR 99, Est GFR ( Amer) 120 D, Glucose 153 H D, Calcium 9.6, Magnesium 2.1, Troponin I < 0.01, Procalcitonin 0.045 I & O for Labs for Last 24 Hours: Intake & Output 11/24/24 11/25/24 11/26/24 11/27/24 23:59 23:59 23:59 23:59 Intake Total 650 / 650 Balance 650 / 650 Weight 185 lb 191 lb 11.2 oz Constitutional: Present moderate distress Head: Present normocephalic and atraumatic ENT: Present normal exam, normal oropharynx and mucous membranes moist Neck: Present normal inspection and full ROM Respiratory: Present respiratory distress, rhonchi and able to speak in complete sentences; Absent wheezes Cardiac: Present S1/S2, Tachycardia and radial pulses present GI: Present soft and distention; Absent tenderness or guarding Rectal (female): Present deferred (female): Present deferred Skin: Present intact; Absent cyanosis or jaundice Neuro: Present alert, awake and oriented x 3 Extremities: Present normal inspection; Absent clubbing or cyanosis Psychiatric: Present normal affect and cooperative Meds Home Medications and Allergies Home Medications ?Medication ?Instructions ?Recorded ?Confirmed ?Type ipratropium 0.5 mg-albuterol 3 mg 3 ml inhalation TID COPD 05/27/22 11/27/24 History (2.5 mg base)/3 mL nebulization soln albuterol sulfate 90 mcg/actuation 2 puff inhalation Q8HP PRN 02/22/23 11/27/24 Rx aerosol inhaler shortness of breath or wheezing #8.5 grams buprenorphine 8 mg-naloxone 2 mg 1.75 film sublingual DAILY 04/21/23 11/27/24 History sublingual film (Suboxone) fluticasone propionate 50 1 spray intranasal BID PRN allergy 05/08/24 11/27/24 Rx mcg/actuation nasal symptoms 90 days #16 grams spray,suspension (Flonase Allergy Relief) empagliflozin 10 mg tablet 10 mg PO DAILY #30 tabs 05/30/24 11/27/24 Rx (Jardiance) pregabalin 300 mg capsule 300 mg PO BID NEUROPATHY #60 caps 10/01/24 11/27/24 Rx cholecalciferol (vitamin D3) 25 25 mcg PO DAILY 90 days #90 caps 10/22/24 11/27/24 Rx mcg (1,000 unit) capsule apixaban 5 mg tablet (Eliquis) 5 mg PO BID 11/27/24 11/27/24 History atorvastatin 10 mg tablet 10 mg PO HS 11/27/24 11/27/24 History fluticasone fur. 100 mcg-umeclid 1 inh inhalation DAILY 11/27/24 11/27/24 History 62.5 mcg-vilant 25 mcg inhalat.powder (Trelegy Ellipta) furosemide 40 mg tablet 40 mg PO DAILY 11/27/24 11/27/24 History pantoprazole 40 mg tablet,delayed 40 mg PO DAILY 11/27/24 11/27/24 History release potassium chloride 20 mEq 20 meq PO BID 11/27/24 11/27/24 History tablet,extended release(part/cryst) promethazine 25 mg tablet 25 mg PO Q6H PRN Nausea 11/27/24 11/27/24 History New Prescriptions to Start Prescriptions: Allergies Allergy/AdvReac Type Severity Reaction Status Date / Time No Known Allergies Allergy Verified 10/01/24 10:28 Results Laboratory Findings 11/27/24 04:45 11/27/24 04:45 Abnormal lab findings: Abnormal Labs 11/26/24 11/27/24 22:46 04:45 RBC 5.75 H 5.51 H MCV 78.6 L 77.3 L MCH 23.8 L 24.0 L MCHC 30.3 L 31.0 L RDW 20.2 H 19.8 H Neut % (Auto) 93.0 H Lymph % (Auto) 5.2 L Whitley % (Auto) 0.9 L Neut # (Auto) 9.8 H Lymph # (Auto) 0.6 L VBG pCO2 62.5 H VBG HCO3 32.6 H VBG Total CO2 34.5 H VBG Base Excess 6.7 H Potassium 3.4 L Carbon Dioxide 37 H 34 H Glucose 153 H D NT-Pro-B Natriuret Pep 140 H Total Protein 8.9 H D Globulin 4.5 H Albumin/Globulin Ratio 1.0 L Assessment and Plan *Assessment and plan (1) Pneumonia: Status: Acute Qualifiers: Pneumonia type: due to unspecified organism Laterality: right Lung location: lower lobe of lung Qualified Code(s): J18.9 - Pneumonia, unspecified organism Category: Medical Code(s): J18.9 - Pneumonia, unspecified organism (2) Acute and chronic respiratory failure with hypoxia: Status: Acute Category: Medical Code(s): J96.21 - Acute and chronic respiratory failure with hypoxia Plan Ms. Luo is a 69-year-old male greater than [id number] smoking history, COPD, chronic hypoxic respiratory failure on 2 L nasal cannula oxygen supplementation at baseline, history of pulmonary embolism (august 2023) and DVT on anticoagulation, pulmonary nodules presented to the ER Complaining of nasal bleeds also found to be hypoxic respiratory failure needing increasing oxygen consult pulmonary was called for further evaluation and management. Patient denies any known sick contacts. No subjective fevers or chills per denies any worsening cough or any productive phlegm. Afebrile. Hemodynamically stable. No evidence of leukocytosis. Pro-Deangelo within normal limits at 0.045. Complains of respiratory viral PCR panel negative. Blood gas upon admission no significant evidence of hypercarbic respiratory failure Chest x-ray per admission concerning bilateral lower lobe infiltrates right greater than left. On examination respiratory distress. No significant wheezing noted on auscultation. Plan: DuoNebs every 6 hours along with Pulmicort every 12 scheduled Follow-up with CT PE protocol Continue full dose anticoagulant for her previous pulmonary embolism on Eliquis 5 mg twice daily Continue levofloxacin pending sputum culture results. Wean steroids to prednisone 40 mg daily
[2024-11-27] MEDS: APIXABAN 5MG TABLET 5 MG PO ×2 (09:37→20:17)
[2024-11-27] MEDS: CHOLECALCIFEROL 1,000 UNITS (25MCG) TABLET 25 MCG PO (09:38)
[2024-11-27] MEDS: EMPAGLIFLOZIN 10MG TABLET 10 MG PO (09:38)
[2024-11-27] MEDS: BUPRENORPHINE/NALOXONE 8MG/2MG ODT 2 EACH SL (09:38)
[2024-11-27] MEDS: FUROSEMIDE 40 MG TABLET PO (09:39)
[2024-11-27] MEDS: METHYLPREDNISOLONE SOD SUCC 40MG VIAL 40 MG IV (09:39)
[2024-11-27] MEDS: PREGABALIN 100MG CAPSULE 300 MG PO ×2 (09:40→20:18)
[2024-11-27] MEDS: POTASSIUM CHLORIDE 20MEQ TAB 20 MEQ PO ×2 (09:40→20:18)
[2024-11-27 10:13] LABS: VBG Base Excess 6.6 mmol/L (-2.4-2.3); VBG HCO3 30.6 mmol/L (23-30); VBG Oxygen Saturation 96.9 % (50-70); VBG PCO2 45.3 mmol/L (35-51); VBG PH 7.45 mmol/L (7.31-7.41)
[2024-11-27 10:14] LABS: Lactate Venous 2.1 mmol/L (0.4-2.0)
--- OUTSIDE RECORDS SUMMARY | 2024-11-27 11:05 | XMS_ITS | Clinical Summary ---
Author Organization Healthcare Address [address] [place] [address] Care Team Providers Care Smoke Eater Name Role Phone FerminmeseretmagaliTravis PRESSURE TESTER OPERATOR Primary Care Provider [phone] Allergies No known active allergies Medications atorvastatin [...] place to sleep or slept in a halfway (including now)? No 09/08/2023 Utilities Answer Date Recorded In the past 12 months has th e [employer], gas, oil, or water company threatened to [...] - Risk 60-74 years 1-dose series) 2016 [id number] Vaccine (1 - season) 2024 UKY-Influenza Vaccine [...] Antigen Negative Negative 09/07/2023 4:48 AM EDT [facility] Hepatitis C Antibody Negative Negative 09/07/2023 4:48 AM EDT [facility] Hepatitis A Antibody IgM Negative Negative 09/07/2023 4:48 AM EDT [facility] Hepatitis B Core Antibody IgM Negative Negative 09/07/2023 4:48 AM EDT [facility] Blood Venous blood specimen / Unknown Venipuncture / Unknown 09/07/2023 3:10 AM EDT 09/07/2023 3:15 AM EDT us Ubaldo Tavarez MD LAB BLOOD ORDERABLES Final Res ult [facility] [address] [place] [address] * (ABNORMAL) Hemoglobin A1c (09/07/2023 2:37 AM EDT) Hemoglobin A1c 6.3(H) <5.7 % 09/07/2023 5:25 AM EDT [facility] Blood Venous blood specimen / Unknown [...] Adults <6.0% Children and Adolescents <7.5% Source: [place] [employer]. Standards of medical care in diabetes,2017. Diabetes Care.2017:40 (suppl 1):S1-S135. HbA1c assay performed by an ion-exchange chromatography method that is certified traceable to the DCCT. Nicole Carreon MD LAB BLOOD ORDERABLES Final R esult [facility] [address] [place] [address] from Last 3 Months or Most Recently Relevant to Health Maintenance [facility] Advance Directives * Full Code (Latest Code Status on File) Date Activated Date Inactivated Comments 09/07/2023 4:25 AM 09/16/2023 1:09 AM Question Answer Comments Patient has decision-making capacity? Yes Care Teams Smoke Eater Relationship Specialty Start Date End Date Travis Kaplan APRN [address] [place] [address] PCP - General 09/18/23
[2024-11-27] MEDS: levoFLOXacin 750 MG TABLET PO (11:25)
--- NOTE | 2024-11-27 11:26 | P.PN_ITS ---
<Statement entered by Cr Heard MD - 11/27/24 16:26> Rounded on patient after nurse practitioner. Personally examined and interviewed patient. Agree with exam findings and care plan as documented. Subjective *Date: 11/27/24 *Time: 14:55 Interval history: Ms. Luo is a 69-year-old female who was admitted to the hospital with respiratory failure and new increased oxygen requirement. She is sitting up in the bed, she does complain of nausea and shortness of breath. She states she is short of breath most of the time. She is currently on 4 L nasal cannula, baseline is 3 L. She denies vomiting, diarrhea, abdominal pain, chest pain. Medical Exam Vital signs and Labs for Last 24 Hours: Vital Signs Temp Pulse Pulse Resp BP BP Pulse Ox 11/27/24 11:15 11/27/24 09:15 11/27/24 08:30 89 L 11/27/24 08:00 80 11/27/24 08:00 97.5 F L 80 18 122/67 89 L 11/27/24 06:21 70 11/27/24 06:21 71 11/27/24 06:21 90 L 11/27/24 06:05 11/27/24 05:00 11/27/24 04:00 70 11/27/24 04:00 98.3 F 65 16 100/54 L 92 L 11/27/24 02:32 11/27/24 02:05 92 L 11/27/24 01:30 98.9 F 79 21 119/59 L 11/27/24 01:02 11/27/24 01:01 81 21 119/59 L 92 L 11/27/24 00:31 79 22 138/95 H 92 L 11/27/24 00:00 84 15 128/65 89 L 11/26/24 23:30 89 14 144/73 H 91 L 11/26/24 23:22 91 H 16 123/86 91 L 11/26/24 23:21 89 11/26/24 22:36 89 11/26/24 22:36 92 L 11/26/24 22:26 98.9 F 94 H 20 155/89 H 73 L O2 Del Method O2 Flow Rate FiO2 11/27/24 11:15 Nasal Cannula 5 11/27/24 09:15 Nasal Cannula 5 11/27/24 08:30 Nasal Cannula 5 11/27/24 08:00 11/27/24 08:00 Nasal Cannula 5 11/27/24 06:21 11/27/24 06:21 11/27/24 06:21 Nasal Cannula 4 11/27/24 06:05 Nasal Cannula 4 11/27/24 05:00 Nasal Cannula 4 11/27/24 04:00 11/27/24 04:00 Nasal Cannula 3 11/27/24 02:32 Nasal Cannula 4 11/27/24 02:05 Nasal Cannula 4 36 11/27/24 01:30 Nasal Cannula 4 11/27/24 01:02 Nasal Cannula 4 11/27/24 01:01 11/27/24 00:31 11/27/24 00:00 Nasal Cannula 2 11/26/24 23:30 Nasal Cannula 2 11/26/24 23:22 Nasal Cannula 2 11/26/24 23:21 11/26/24 22:36 11/26/24 22:36 Nasal Cannula 2 28 11/26/24 22:26 Room Air Intake and Output 11/26/24 11/27/24 11/27/24 23:59 07:59 15:59 Intake Total 650 / 650 Output Total 800 / 800 Balance -150 / -150 Intake: Intake, Oral Amount 650 / 650 Output: Output, Urine Amount 800 / 800 Other: Weight 83.915 kg 86.954 kg Patient Weight 11/27/24 23:59 Weight 86.954 kg Laboratory Results - last 24 hr 11/26/24 22:46: WBC 9.5, RBC 5.75 H, Hgb 13.7, Hct 45.2, MCV 78.6 L, MCH 23.8 L, MCHC 30.3 L, RDW 20.2 H, Plt Count 348, MPV 9.7, Neut % (Auto) 72.0, Lymph % (Auto) 18.7, Metcalfe % (Auto) 7.3, Eos % (Auto) 1.3, Baso % (Auto) 0.4, Neut # (Auto) 6.8, Lymph # (Auto) 1.8, Metcalfe # (Auto) 0.7, Eos # (Auto) 0.1, Baso # (Auto) 0.0, VBG pH 7.34, VBG pCO2 62.5 H, VBG pO2 32.6, VBG HCO3 32.6 H, VBG Total CO2 34.5 H, VBG O2 Saturation 62.8, VBG Base Excess 6.7 H, VBG Lactic Acid 1.3, Sodium 141, Potassium 3.4 L, Chloride 99, Carbon Dioxide 37 H, Anion Gap 8.4, BUN 10, Creatinine 0.90, Estimated Creat Clear 71, Estimated GFR 62, Est GFR ( Amer) 75, Glucose 75, Calcium 9.8, Total Bilirubin 0.7, AST 29, ALT 17, Alkaline Phosphatase 124, Troponin I < 0.01, NT-Pro-B Natriuret Pep 140 H, Total Protein 8.9 H D, Albumin 4.4, Globulin 4.5 H, Albumin/Globulin Ratio 1.0 L , HCV Ab ARTURO w/Rflx PCR Qn Negative, HIV Ag/Ab Combo Qual Negative 11/27/24 00:22: Chlamy pneumoniae PCR Not detected, Adenovirus (PCR) Not detected, B. pertussis DNA (PCR) Not detected, Coronavirus OC43 (PCR) Not detected, Coronavirus HKU1 (PCR) Not detected, Coronavirus 229E (PCR) Not detected, SARS-CoV-2 (PCR) Not detected, Coronavirus NL63 (PCR) Not detected, Human Metapneumovir PCR Not detected, Influenza A (H1) PCR Not detected, Influ A (H1N1/09) PCR Not detected, Influenza A (H3) PCR Not detected, Influenza Type A (PCR) Not detected, Influenza Type B (PCR) Not detected, M. pneumoniae (PCR) Not detected, Parainfluenza 1 (PCR) Not detected, Parainfluenza 2 (PCR) Not detected, Parainfluenza 3 (PCR) Not detected, Parainfluenza 4 (PCR) Not detected, RSV (PCR) Not detected, Entero/Rhino (PCR) Not detected 11/27/24 02:28: Troponin I < 0.01 11/27/24 04:45: WBC 10.5, RBC 5.51 H, Hgb 13.2, Hct 42.6, MCV 77.3 L, MCH 24.0 L , MCHC 31.0 L, RDW 19.8 H, Plt Count 316, MPV 10.1, Neut % (Auto) 93.0 H, Lymph % (Auto) 5.2 L, Metcalfe % (Auto) 0.9 L, Eos % (Auto) 0.1, Baso % (Auto) 0.3, Neut # (Auto) 9.8 H, Lymph # (Auto) 0.6 L, Metcalfe # (Auto) 0.1, Eos # (Auto) 0.0, Baso # (Auto) 0.0, Sodium 137, Potassium 3.6, Chloride 100, Carbon Dioxide 34 H, Anion Gap 6.6, BUN 12, Creatinine 0.60 D, Estimated Creat Clear 74, Estimated GFR 99, Est GFR ( Amer) 120 D, Glucose 153 H D, Calcium 9.6, Magnesium 2.1, Troponin I < 0.01, Procalcitonin 0.045 11/27/24 09:56: VBG pH 7.45 H, VBG pCO2 45.3, VBG pO2 86.0 H, VBG HCO3 30.6 H, VBG Total CO2 32.0 H, VBG O2 Saturation 96.9 H, VBG Base Excess 6.6 H, VBG Lactic Acid 2.1 H I & O for Labs for Last 24 Hours: Intake & Output 11/24/24 11/25/24 11/26/24 11/27/24 23:59 23:59 23:59 23:59 Intake Total 650 / 650 Output Total 800 / 800 Balance -150 / -150 Weight 83.915 kg 86.954 kg Head: Present normal inspection Neck: Present normal inspection and full ROM Respiratory: Present decreased breath sounds and rhonchi Cardiac: Present Reg Rate and Rhythm GI: Present soft and distention; Absent tenderness Rectal (female): Present deferred (female): Present deferred Extremities: Present normal inspection and full ROM Skin: Present intact Assessment and Plan *Assessment and plan (1) Pneumonia: Status: Acute Qualifiers: Laterality: right Lung location: lower lobe of lung Pneumonia type: due to unspecified organism Qualified Code(s): J18.9 - Pneumonia, unspecified organism Category: Medical Code(s): J18.9 - Pneumonia, unspecified organism (2) Acute on chronic respiratory failure with hypoxia and hypercapnia: Status: Acute Category: Medical Code(s): J96.21 - Acute and chronic respiratory failure with hypoxia; J96.22 - Acute and chronic respiratory failure with hypercapnia (3) Epistaxis: Status: Acute Category: Medical Code(s): R04.0 - Epistaxis (4) Acute exacerbation of chronic obstructive pulmonary disease: Status: Acute Category: Medical Code(s): J44.1 - Chronic obstructive pulmonary disease with (acute) exacerbation (5) Opioid use disorder in remission: Status: Acute Category: Medical Code(s): F11.91 - Opioid use, unspecified, in remission (6) Pulmonary embolism: Status: Acute Qualifiers: Acute cor pulmonale presence: unspecified Chronicity: unspecified Pulmonary embolism type: unspecified Qualified Code(s): I26.99 - Other pulmonary embolism without acute cor pulmonale Category: Medical Code(s): I26.99 - Other pulmonary embolism without acute cor pulmonale (7) DVT (deep venous thrombosis): Status: Acute Qualifiers: Affected thrombotic vein of extremity: other lower extremity vein Chronicity: unspecified DVT location: lower extremity Laterality: bilateral Qualified Code(s): I82.493 - Acute embolism and thrombosis of other specified deep vein of lower extremity, bilateral Category: Medical Code(s): I82.409 - Acute embolism and thrombosis of unspecified deep veins of unspecified lower extremity Plan Ms. Jaramillo is a 69-year-old female with a history of GERD, history of drug use, hyperlipidemia, COPD, chronic hypoxic respiratory failure baseline 3 L nasal cannula, pulmonary embolism (August 2023), DVT, pulmonary nodules, [id number] smoking history. She presented to the emergency department with increased shortness of breath and a nosebleed. Patient is on anticoagulation for history of DVT and PE. She also has a history of atrial fibrillation. Patient's oxygen was found to be 78% in the emergency room, and chest x-ray showed middle and lower right lobe pneumonia. Discussed plan of care with emergency room physician and decision made for patient to be admitted to the hospital service for further management. #Pneumonia #Acute on chronic respiratory failure with hypoxia and hypercapnia ?Patient was admitted to the hospital for increased shortness of care and hypercarbic respiratory failure; blood gas shows a PCO2 of 62.5 on admission, better today at 45.3. Patient states she is still short of breath but it has improved since admission. Patient being medically managed with 40 mg of p.o. prednisone daily, Pulmicort twice daily, DuoNebs every 6 hours, and Levaquin 750 mg p.o. daily. Monitor for toxicity. ?Pulmonology consulted, ordered chest CTA for PE protocol, No PE or dissection noted. Pulmonary scarring stable nodules in right lower lobe. ?Patient is afebrile, White count 10.5. ?Sputum culture pending. ?Will repeat CBC, CMP in the a.m. #Epistaxis ?Resolved. #Opioid use disorder #Pulmonary insulin embolism #DVT ?Continue home medication: Eliquis 5 mg twice daily, atorvastatin 10 mg at bedtime, Suboxone 2 tabs daily, Jardiance 10 mg daily, pantoprazole 40 mg daily, potassium 20 mEq twice daily, Lyrica 300 mg twice daily.
--- NOTE | 2024-11-27 11:45 | CT_ITS ---
FINAL REPORT TECHNIQUE: The patient was injected with IV contrast. Axial images were obtained through the chest in a PE protocol. 3-D reconstruction images were also performed. Individualized dose reduction techniques using automated exposure control or adjustment of the MA and/or KV according to patient's size were employed. CLINICAL HISTORY: SOB/Hypoxia COMPARISON: 09/06/2023 FINDINGS: Mediastinal vasculature is adequately opacified. No pulmonary artery filling defects are identified to suggest PE. There is no aortic dissection. There is no axillary adenopathy. There is no hilar or mediastinal adenopathy. The heart size is normal. There is no pericardial or pleural effusion. Limited images of the upper abdomen are unremarkable. There are moderate changes of centrilobular emphysema. Scarring is noted at the apices. There is linear scarring at the right lung base. There is a pleural-based nodule at the right lung base measuring 10 x 8 mm, well seen on image 63 of series 3. There is an adjacent noncalcified nodule measuring 5 mm in diameter also on image 63 of series 3. These nodules are stable compared to the prior exam. IMPRESSION: No pulmonary embolus or dissection. Centrilobular emphysema. Pulmonary scarring. Stable nodules in the periphery of the right lower lobe. Reviewed, Interpreted and Dictated by Donavan Lieberman MD Transcribed by Velma Cain Authenticated and [facility]
[2024-11-27] MEDS: 0.9 % SODIUM CHLORIDE 50 ML VIAL IV (12:37)
[2024-11-27] MEDS: IOPAMIDOL-370 (76%);100ML BOTTLE 85 ML IV (12:37)
[2024-11-27] MEDS: ONDANSETRON 4MG/2ML VIAL 4 MG IV (12:45)
--- NOTE | 2024-11-27 13:31 | HMH.OTEV ---
OT Inpatient Evaluation Rehab OT IP Evaluation Start: 11/27/24 01:41 Freq: ONCE Status: Active Protocol: Document 11/27/24 13:23 LOTTIE (Rec: 11/27/24 13:31 LOTTIE [id number]) Rehab OT IP Assessment Subjective History Per MDM Narrative Medical Decision Narrative: This is a 69-year-old female presenting with nosebleed. She actually came to the emergency department for nosebleed this been on and off for the last 4 days. When walking into the emergency department, became hypoxemic, very short of breath. Was brought into nearest room, patient placed in bed. Was hypoxemic and speaking in partial sentences, in mild respiratory distress. Patient's nose stopped bleeding after application of nonrebreather mask. Patient states that she was feeling well until walking into the emergency department and immediately started feeling short of breath. Cough is nonproductive, no chest pain, nausea, vomiting, fevers or chills. Has been taking meds as she should. Still smoking, but smoking 3 to 4 cigarettes a day. On 2 L nasal cannula oxygen as needed. History was obtained via conversation with patient. On arrival, patient hemodynamically stable, alert, oriented x4, appropriate, GCS 15, moving all extremities spontaneously, pupils equal and reactive to light. Full physical exam performed and significant for uncomfortable appearing female respiratory distress . Speaking partial sentences, prolonged expiratory phase, increased work of breathing and diffuse end expiratory wheezes with minimal breath sounds bilaterally. Cardiac exam with borderline tachycardia. No lower extremity edema. Pulses equal and symmetric .. Differential includes COPD exacerbation, bronchitis, pneumonia, pneumothorax, ACS, MT, among others. Subjective I'll try. Pt was supine in bed when therapy entered room. pt agreeable for completion of OT eval. Pt reinstated they live with daughter and grandson and have someone there 02/01. Daughter does work, but they have discussed options of someone being present. Pt agreed to complete a sit to stand transfer. pt went from middle of bed to EOB with SBA. Pt instructed to sit on EOB and take deep breaths due to low O2 levels hitting low 80. Pt able to get back up to 87/88. pt then completed a sit to stand transfer with walker with CGA. pt able to hold static standing balance with walker for aprox 30 secs before sitting back on EOB. pt reported they would like to finish lunch. Pt went from EOB to sitting in middle of bed with SBA. pt left with call light and all other needs within reach. Nursing notified of pt. CM also notified of pt. SOAP note completed from earlier attempt with pt answering PLOF, AD, and home set-up. Objective Patient Orientation Person,Place,Birthday Right Upper WFL Extremity Gross ROM Left Upper Extremity WFL Gross ROM Shoulder ROM Muscle Weakness Limitations Elbow ROM Muscle Weakness Limitations Bed Mobility bed mobility-scooting,bed mobility - supine/sit Assist Level Supervision/Stand by Transfer Training Sit/Stand Transfer Assist Level Contact Guard/Hand Hold Chair Transfer Contact Guard/Hand Hold Ability Chair Transfer Sit to/from Ambulatory Technique Chair Transfer Standard Walker Assistive Devices Decrease in Yes Endurance Rehab OT IP prob,goals,plan Problems Date of Evaluation: 11/27/24 OT IP Problems Bed Mobility,Transfers,Balance,Self care,Safety Rehab Potential Rehab Potential Good Equipment Needs Assistive Devices Standard Walker,Rolling / Wheeled Walker Plan OT intervention Plan Bed Mobility,Transfers,Balance,Self care,Safety, Therapeutic Exercise OT Plan Frequency Daily Duration LOS Discharge Goals Bed Mobility Ability Standby Assistance Sit to Stand Chair Supervision/Stand by Transfer Ability Chair Transfer Supervision/Stand by Ability Chair Transfer Sit to/from Ambulatory Technique Chair Transfer Standard Walker,Rolling Walker Assistive Devices Feeding Ability Assist with Tray Set Up Commode/Toilet Raised Toilet Seat,Grab Bars Transfer Assistive Devices Decrease in No Endurance Discharge Plan OT Discharge Plan At this time, pt would benefit from skilled acute OT services and interventions to address functional limitations in occupational performance. pt would benefit from skilled OT services and interventions with once DC from [facility] to further reach optimal occupational performance due to functional limitations. Eval Complexity Eval Charge Codes 83404 - Moderate Complexity PHYSICIAN CERTIFICATION: I certify the specified therapy services for Janice Luo are required, authorized, and reviewed every 30 days.
--- NOTE | 2024-11-27 13:57 | HMH.PTEV ---
Physical Therapy Evaluation Rehab PT IP Evaluation Start: 11/27/24 01:41 Freq: .once Status: Active Protocol: Document 11/27/24 13:55 HIMA (Rec: 11/27/24 13:56 HIMA [id number]) Subjective/History History History Per H&P: This is a 69-year-old female who has a past medical history significant for obstructive sleep apnea, HFpEF, DVT, pulmonary embolism, fibromyalgia, current smoker, bronchiectasis, pulmonary emphysema, and COPD who presents with a chief complaint of a nosebleed. Due to patient's symptoms, she presented to the emergency room for evaluation. While in the emergency room, patient's nosebleeding resolved; however, patient was found to be acutely hypoxic on room air with room air saturations at 79%. Patient was placed on nonrebreather and her oxygen saturations improved to 100%. While in the emergency room, she was weaned to 4 L; however, her chest x-ray was consistent with right middle and right lower lobe pneumonia. As a result of these findings, patient is being admitted for further management.. Subjective Subjective - Lives with her daughter and grandson in a single- story home - Still driving - 3 [address] home with HRs - Daughter able to assist as needed - On supplemental O2 at home prn - Is IND with all mobility using a . [facility] How much help from another person do you currently need... Turning from your None back to your side while in a flat bed without using bedrails? Moving from lying on None back to sitting on the side of a flat bed without using bedrails? Moving to and from a None bed to a chair ( including a wheelchair)? Standing up from a None chair using your arms? (e.g., wheelchair, bedside chair) Walking in hospital A little room? Climbing 3-5 steps A little with a railing? Mobility Score [address] [facility] Mobility 7 Walk 25 feet or more Mobility Calculator Rehab PT IP Eval Objective Appearance Patient Behavior Appropriate,Cooperative Patient Orientation Person,Place,Situation Difficulty following none instructions Speech Pattern Clear Ambulation Patient Able to Yes Ambulate Ambulation Observation IP General Gait Wide Based Gait Pattern Observation Ambulation Distance 10 (feet) Ambulation Assistive Rolling Walker Device Ambulation Ability Contact Guard/Hand Hold Balance Ability to Arise Able, uses arms to help Sitting Balance Steady, safe Standing Balance Steady, wide stance Dynamic Sitting Good Balance Ability Dynamic Standing Fair Balance Ability Transfers Bed Transfer Ability Supervision/Stand by Sit to Stand Bed Contact Guard/Hand Hold Transfer Ability Rehab PT IP prob,goals,plan Problems Date of Evaluation: 11/27/24 PT IP Problems Bed Mobility,Transfers,Gait,Balance,Self care,Safety Rehab Potential Rehab Potential Good Plan PT Intervention Plan Bed Mobility,Transfers,Gait,Balance,Self care,Safety, Therapeutic Exercise Other Intervention 1-2 times Plan PT Plan Frequency Daily Duration LOS Discharge Goals Bed Transfer Ability Independent Sit to Stand Chair Independent Transfer Ability Ambulation Distance 20 (feet) Discharge Plan PT Discharge Plan Initial physical therapy evaluation performed. Patient presents below baseline at this time in functional mobility, transfers, gait, and strength. Pt would benefit from skilled PT while at [facility] to prevent further functional decline and maximize safety with mobility. Pt most appropriate to d/c home with 24/7 supervision when deemed medically necessary d/t current level of mobility, home set-up, and family support. PT recommending home health PT services to address deficits. Eval Complexity Eval Charge Codes 34220 - Moderate Complexity PHYSICIAN CERTIFICATION: I certify the specified therapy services for Janice Luo are required, authorized, and reviewed every 30 days.
[2024-11-27 14:14] LABS: Reflex Lactic Add Lactic Reflex
[2024-11-27 14:42] LABS: Lactic Acid Follow Up (RFLX 1) 1.9 mmol/L (0.7-2.1)
--- NOTE | 2024-11-27 15:49 | PC.NURSE ---
pt is A&Ox4. she is currently on 5L nasal cannula. Her O2 sats have ran anywhere between 87 and 90% today. Both Rosie and Dr Chow are aware. Pt has been nauseous throughout the day. no concerns or needs at this time. Call light is within reach.
[2024-11-27] MEDS: PANTOPRAZOLE 40MG TABLET 40 MG PO (20:18)
[2024-11-27] MEDS: ATORVASTATIN 10MG TABLET 10 MG PO (20:18)
[2024-11-27] MEDS: 0.9 % SODIUM CHLORIDE 25 ML 100 ML IV (20:27)
--- NOTE | 2024-11-27 20:29 | PC.NURSE ---
spoke with nicolas dominguez in regards to increased lactic from earlier labs and patient distended abd and only 1 bm [id number] (pt states this has been her baseline for 1 year) - patient is on abx, no fluids at this time for lactic and new bowel regimen scheduled for the morning.
--- NOTE | 2024-11-27 20:32 | PC.NURSE ---
gave patient [id number] spirometry and education on use - patient verbalized understanding
[2024-11-28] VITALS (11 sets, daily range): BP systolic 107–134; BP diastolic 49–62; PULSE 60–84; RESP 14–22; TEMP 36.4–36.8; O2SAT 89–95; BMI 32.9
[2024-11-28] MEDS: IPRATROPIUM/ALBUTEROL 3 ML NEB IH ×4 (00:51→19:00)
[2024-11-28 05:06] LABS: Basophils % 0.1 % (0.1-2.0); Eosinophils # 0.1 Kmm3 (0.0-0.4); Eosinophils % 1.1 % (0.1-12.0); Hematocrit 41.2 % (37.0-47.0); Hemoglobin 12.8 g/dL (12.2-16.2); Immature Granulocytes # 0.03 10^3uL; Immature Granulocytes % 0.3 %; Lymphocytes # 1.4 K/mm3 (0.7-4.5); Lymphocytes % 13.8 % (10-50); Mean Corpuscular HGB Conc 31.1 g/dL (31.8-35.4); Mean Corpuscular Hemoglobin 24.1 pg (27.0-31.2); Mean Corpuscular Volume 77.4 fl (81-99); Mean Platelet Volume 10.2 fl (7.4-10.4); Monocytes # 0.7 K/mm3 (0.1-1.0); Monocytes % 6.9 % (1.7-9.3); Neutrophils # 7.7 K/mm3 (1.8-7.8); Neutrophils % 77.8 % (37.0-80.0); Nucleated Red Blood Cells # 0 10^3/uL; Nucleated Red Blood Cells % 0 %; Platelet Count 305 K/mm3 (142-424); Red Blood Count 5.32 M/mm3 (4.20-5.40); Red Cell Distribution Width-SD 53.8 fL; White Blood Count 9.9 K/mm3 (4.8-10.8)
[2024-11-28 05:10] LABS: Chloride 100 mmol/L (98-107); Potassium 4.1 mmoL/L (3.5-5.1); Sodium 136 mmol/L (136-145)
[2024-11-28 05:13] LABS: Blood Urea Nitrogen 17 mg/dl (7-17); Creatinine Clearance Estimated 74 mL/min (50-200); Estimated Glomerular Filt Rate 83 ml/min (>60); GFR (African American) 101 ML/MIN (>60)
[2024-11-28 05:14] LABS: Anion Gap 5.1 mEq/L (5-15); Calcium 9.5 mg/dl (8.4-10.2); Carbon Dioxide 35 mmol/L (22.0-30.0); Glucose 125 mg/dl (74-100)
[2024-11-28] MEDS: BUDESONIDE 0.5MG/2ML NEB 0.5 MG IH ×2 (05:56→19:00)
--- NOTE | 2024-11-28 06:12 | PC.NURSE ---
ice water passed, patient room was cleaned, trash and linen was emptied, bedside table was cleaned and wiped down with bleach wipe, call light was in reach.
--- NOTE | 2024-11-28 08:00 | XR_ITS ---
FINAL REPORT CLINICAL HISTORY: Abdominal distention COMPARISON: None FINDINGS: SINGLE VIEW ABDOMEN A single view of the abdomen was obtained. There is a nonobstructive bowel gas pattern. There are no abnormally dilated loops of small bowel. A large amount of gas and stool are present in the colon. No abnormal calcifications are identified. IMPRESSION: Nonobstructive bowel gas pattern, with large amounts of gas and stool present in the colon. Reviewed, Interpreted and Dictated by Donavan Lieberman MD Transcribed by Alexandra Burdick Authenticated and [facility]
[2024-11-28] MEDS: DOCUSATE SODIUM 250MG CAPSULE 250 MG PO (08:27)
[2024-11-28] MEDS: APIXABAN 5MG TABLET 5 MG PO ×2 (08:27→20:31)
[2024-11-28] MEDS: EMPAGLIFLOZIN 10MG TABLET 10 MG PO (08:27)
[2024-11-28] MEDS: CHOLECALCIFEROL 1,000 UNITS (25MCG) TABLET 25 MCG PO (08:27)
[2024-11-28] MEDS: FUROSEMIDE 40 MG TABLET PO (08:28)
[2024-11-28] MEDS: POTASSIUM CHLORIDE 20MEQ TAB 20 MEQ PO ×2 (08:28→20:31)
[2024-11-28] MEDS: SENNA 8.6MG TABLET 8.6 MG PO (08:29)
[2024-11-28] MEDS: predniSONE 20MG TAB 40 MG PO (08:29)
[2024-11-28] MEDS: BUPRENORPHINE/NALOXONE 8MG/2MG ODT 2 EACH SL (08:31)
[2024-11-28] MEDS: PREGABALIN 100MG CAPSULE 300 MG PO ×2 (08:31→20:31)
[2024-11-28] MEDS: FLUTICASONE PROP 50MCG NASAL SPRAY 16GM 1 SPRAY NS (08:36)
--- NOTE | 2024-11-28 09:08 | EXP.PULM.PN ---
Subjective *Date: 11/28/24 *Time: 12:47 Interval history: No acute respiratory vents overnight. Patient admits slight improvement in her respiratory symptoms. Pulmonology Exam Inpatient Vital signs and Labs for Last 24 Hours: Temp Pulse Resp BP Pulse Ox O2 Del Method O2 Flow Rate 97.7 F 62 19 134/52 L 94 L Nasal Cannula 4 11/28/24 08:00 11/28/24 08:00 11/28/24 08:00 11/28/24 08:00 11/28/24 08:00 11/28/24 08:00 11/28/24 08:00 FiO2 36 11/27/24 02:05 Laboratory Results - last 24 hr 11/27/24 09:56: VBG pH 7.45 H, VBG pCO2 45.3, VBG pO2 86.0 H, VBG HCO3 30.6 H, VBG Total CO2 32.0 H, VBG O2 Saturation 96.9 H, VBG Base Excess 6.6 H, VBG Lactic Acid 2.1 H 11/27/24 12:25: Lactate 1.9 11/28/24 04:47: WBC 9.9, RBC 5.32, Hgb 12.8, Hct 41.2, MCV 77.4 L, MCH 24.1 L, MCHC 31.1 L, RDW 20.0 H, Plt Count 305, MPV 10.2, Neut % (Auto) 77.8, Lymph % (Auto) 13.8, Alexander % (Auto) 6.9, Eos % (Auto) 1.1, Baso % (Auto) 0.1, Neut # (Auto) 7.7, Lymph # (Auto) 1.4, Alexander # (Auto) 0.7, Eos # (Auto) 0.1, Baso # (Auto) 0.0, Sodium 136, Potassium 4.1, Chloride 100, Carbon Dioxide 35 H, Anion Gap 5.1, BUN 17 D, Creatinine 0.70, Estimated Creat Clear 74, Estimated GFR 83, Est GFR ( Amer) 101, Glucose 125 H, Calcium 9.5 Temp Pulse Resp BP Pulse Ox O2 Del Method O2 Flow Rate 97.5 F L 80 18 122/67 89 L Nasal Cannula 5 11/27/24 08:00 11/27/24 08:00 11/27/24 08:00 11/27/24 08:00 11/27/24 08:00 11/27/24 08:00 11/27/24 08:00 FiO2 36 11/27/24 02:05 Laboratory Results - last 24 hr 11/26/24 22:46: WBC 9.5, RBC 5.75 H, Hgb 13.7, Hct 45.2, MCV 78.6 L, MCH 23.8 L, MCHC 30.3 L, RDW 20.2 H, Plt Count 348, MPV 9.7, Neut % (Auto) 72.0, Lymph % (Auto) 18.7, Alexander % (Auto) 7.3, Eos % (Auto) 1.3, Baso % (Auto) 0.4, Neut # (Auto) 6.8, Lymph # (Auto) 1.8, Alexander # (Auto) 0.7, Eos # (Auto) 0.1, Baso # (Auto) 0.0, VBG pH 7.34, VBG pCO2 62.5 H, VBG pO2 32.6, VBG HCO3 32.6 H, VBG Total CO2 34.5 H, VBG O2 Saturation 62.8, VBG Base Excess 6.7 H, VBG Lactic Acid 1.3, Sodium 141, Potassium 3.4 L, Chloride 99, Carbon Dioxide 37 H, Anion Gap 8.4, BUN 10, Creatinine 0.90, Estimated Creat Clear 71, Estimated GFR 62, Est GFR ( Amer) 75, Glucose 75, Calcium 9.8, Total Bilirubin 0.7, AST 29, ALT 17, Alkaline Phosphatase 124, Troponin I < 0.01, NT-Pro-B Natriuret Pep 140 H, Total Protein 8.9 H D, Albumin 4.4, Globulin 4.5 H, Albumin/Globulin Ratio 1.0 L, HCV Ab ARTURO w/Rflx PCR Qn Negative, HIV Ag/Ab Combo Qual Negative 11/27/24 00:22: Chlamy pneumoniae PCR Not detected, Adenovirus (PCR) Not detected, B. pertussis DNA (PCR) Not detected, Coronavirus OC43 (PCR) Not detected, Coronavirus HKU1 (PCR) Not detected, Coronavirus 229E (PCR) Not detected, SARS-CoV-2 (PCR) Not detected, Coronavirus NL63 (PCR) Not detected, Human Metapneumovir PCR Not detected, Influenza A (H1) PCR Not detected, Influ A (H1N1/09) PCR Not detected, Influenza A (H3) PCR Not detected, Influenza Type A (PCR) Not detected, Influenza Type B (PCR) Not detected, M. pneumoniae (PCR) Not detected, Parainfluenza 1 (PCR) Not detected, Parainfluenza 2 (PCR) Not detected, Parainfluenza 3 (PCR) Not detected, Parainfluenza 4 (PCR) Not detected, RSV (PCR) Not detected, Entero/Rhino (PCR) Not detected 11/27/24 02:28: Troponin I < 0.01 11/27/24 04:45: WBC 10.5, RBC 5.51 H, Hgb 13.2, Hct 42.6, MCV 77.3 L, MCH 24.0 L, MCHC 31.0 L, RDW 19.8 H, Plt Count 316, MPV 10.1, Neut % (Auto) 93.0 H, Lymph % (Auto) 5.2 L, Alexander % (Auto) 0.9 L, Eos % (Auto) 0.1, Baso % (Auto) 0.3, Neut # (Auto) 9.8 H, Lymph # (Auto) 0.6 L, Alexander # (Auto) 0.1, Eos # (Auto) 0.0, Baso # (Auto) 0.0, Sodium 137, Potassium 3.6, Chloride 100, Carbon Dioxide 34 H, Anion Gap 6.6, BUN 12, Creatinine 0.60 D, Estimated Creat Clear 74, Estimated GFR 99, Est GFR ( Amer) 120 D, Glucose 153 H D, Calcium 9.6, Magnesium 2.1, Troponin I < 0.01, Procalcitonin 0.045 I & O for Labs for Last 24 Hours: Intake & Output 11/25/24 11/26/24 11/27/24 11/28/24 23:59 23:59 23:59 23:59 Intake Total 1769 240 / 240 Output Total 1800 / 1800 1100 / 1100 Balance -30 / 210 -860 / -860 Weight 185 lb 191 lb 11.2 oz 197 lb 9 oz Intake & Output 06/15/25 06/16/25 06/17/25 06/18/25 23:59 23:59 23:59 23:59 Intake Total 650 / 650 Balance 650 / 650 Weight 185 lb 191 lb 11.2 oz Constitutional: Present moderate distress Head: Present normocephalic and atraumatic ENT: Present normal exam, normal oropharynx and mucous membranes moist Neck: Present normal inspection and full ROM Respiratory: Present respiratory distress, rhonchi and able to speak in complete sentences; Absent wheezes Cardiac: Present S1/S2, Tachycardia and radial pulses present GI: Present soft and distention; Absent tenderness or guarding Rectal (female): Present deferred (female): Present deferred Skin: Present intact; Absent cyanosis or jaundice Neuro: Present alert, awake and oriented x 3 Extremities: Present normal inspection; Absent clubbing or cyanosis Psychiatric: Present normal affect and cooperative Assessment and Plan *Assessment and plan (1) Pneumonia: Status: Acute Qualifiers: Laterality: right Lung location: lower lobe of lung Pneumonia type: due to unspecified organism Qualified Code(s): J18.9 - Pneumonia, unspecified organism Category: Medical Code(s): J18.9 - Pneumonia, unspecified organism (2) Acute and chronic respiratory failure with hypoxia: Status: Acute Category: Medical Code(s): J96.21 - Acute and chronic respiratory failure with hypoxia Plan Ms. Luo is a 69-year-old male greater than [id number] smoking history, COPD, chronic hypoxic respiratory failure on 2 L nasal cannula oxygen supplementation at baseline, history of pulmonary embolism (august 2023) and DVT on anticoagulation, pulmonary nodules presented to the ER Complaining of nasal bleeds also found to be hypoxic respiratory failure needing increasing oxygen consult pulmonary was called for further evaluation and management. Patient denies any known sick contacts. No subjective fevers or chills per denies any worsening cough or any productive phlegm. Afebrile. Hemodynamically stable. No evidence of leukocytosis. Pro-Deangelo within normal limits at 0.045. Complains of respiratory viral PCR panel negative. Blood gas upon admission no significant evidence of hypercarbic respiratory failure Chest x-ray upon admission concerning bilateral lower lobe infiltrates right greater than left. Interval update: CT chest minimal lower lobe airspace disease. No significant dense consolidative/airspace changes noted. No pulmonary embolism. No sputum cultures available for review. Afebrile. Hemodynamically stable. No evidence of leukocytosis. Plan: Continue oxygen supplementation to maintain O2 saturation above 90% and above. Baseline needing 2 L, needing 3 to 4 L on this hospital admission. DuoNebs every 6 hours along with Pulmicort every 12 scheduled. Continue full dose anticoagulant for her previous pulmonary embolism on Eliquis 5 mg twice daily Continue levofloxacin 750 mg daily to complete a total of 3-day course Continue prednisone 40 mg daily to complete a total of 5-day course. Volume optimization as per primary team and cardiology # Patient can be discharged from pulmonary standpoint at this point of time. Will follow the patient in pulmonary clinic 1 to 2 weeks postdischarge
--- NOTE | 2024-11-28 09:24 | SW/DCPLANNER ---
Spoke with patient regarding home health once she is medically stable and ready for discharge. Patient stated that she does not want home health or outpatient therapy. Patient stated that she believes she is good at where she is at. [facility]
[2024-11-28] MEDS: POLYETHYLENE GLYCOL 3350 17 GM PACKET PO (10:07)
[2024-11-28] MEDS: levoFLOXacin 750 MG TABLET PO (10:08)
[2024-11-28] MEDS: SODIUM CHLORIDE 3% 15ML NEB 3 ML IH (11:01)
--- NOTE | 2024-11-28 11:27 | P.PN_ITS ---
<Statement entered by Zeferino Londono MD - 12/04/24 22:31> Evaluated by the patient and agree with plan of care as outlined by the TAX AUDIT MANAGER. Subjective *Date: 11/29/24 *Time: 12:23 Interval history: Patient is sitting up in bed, just finished breakfast. She is well-appearing, no dyspnea noted. She is on 4 L O2, baseline 2 L. Her O2 sats have been anywhere from 90 to 94%. Patient states she is using her incentive spirometer as instructed. Patient's abdomen is distended and hard, abdominal x-ray shows stool burden. Discussed with patient trying MiraLAX and an enema today. Patient states she usually only has a bowel movement every 10 to 14 days and this is normal for her. She denies any abdominal pain, tenderness. Bowel sounds normoactive. Medical Exam Vital signs and Labs for Last 24 Hours: Vital Signs Temp Pulse Pulse Resp BP Pulse Ox O2 Del Method 11/28/24 11:03 Nasal Cannula 11/28/24 11:01 69 14 11/28/24 11:01 69 11/28/24 11:01 64 11/28/24 11:01 89 L Nasal Cannula 11/28/24 09:05 Nasal Cannula 11/28/24 08:15 Nasal Cannula 11/28/24 08:00 70 11/28/24 08:00 97.7 F 62 19 134/52 L 94 L Nasal Cannula 11/28/24 06:21 Nasal Cannula 11/28/24 05:56 65 11/28/24 05:56 68 11/28/24 05:56 94 L Nasal Cannula 11/28/24 05:00 Nasal Cannula 11/28/24 04:00 98.2 F 66 18 107/51 L 95 Nasal Cannula 11/28/24 04:00 60 11/28/24 03:00 Nasal Cannula 11/28/24 01:00 Nasal Cannula 11/28/24 00:51 67 11/28/24 00:51 72 11/28/24 00:51 91 L Nasal Cannula 11/28/24 00:00 60 11/28/24 00:00 98.1 F 65 22 110/51 L 94 L Nasal Cannula 11/27/24 23:00 Nasal Cannula 11/27/24 21:00 Nasal Cannula 11/27/24 20:00 97.6 F 72 16 104/50 L 93 L Nasal Cannula 11/27/24 20:00 Nasal Cannula 11/27/24 20:00 70 11/27/24 18:43 Nasal Cannula 11/27/24 18:21 67 11/27/24 18:21 71 11/27/24 18:21 88 L Nasal Cannula 11/27/24 17:00 Nasal Cannula 11/27/24 16:00 70 11/27/24 16:00 97.8 F 66 14 101/50 L 92 L Nasal Cannula 11/27/24 15:00 Nasal Cannula 11/27/24 13:00 Nasal Cannula 11/27/24 12:00 75 11/27/24 11:34 65 11/27/24 11:34 69 O2 Flow Rate 11/28/24 11:03 4 11/28/24 11:01 11/28/24 11:01 11/28/24 11:01 11/28/24 11:01 4.5 11/28/24 09:05 4 11/28/24 08:15 4 11/28/24 08:00 11/28/24 08:00 4 11/28/24 06:21 4 11/28/24 05:56 11/28/24 05:56 11/28/24 05:56 5 11/28/24 05:00 5 11/28/24 04:00 5 11/28/24 04:00 11/28/24 03:00 5 11/28/24 01:00 5 11/28/24 00:51 11/28/24 00:51 11/28/24 00:51 5 11/28/24 00:00 11/28/24 00:00 5 11/27/24 23:00 5 11/27/24 21:00 5 11/27/24 20:00 5 11/27/24 20:00 5 11/27/24 20:00 11/27/24 18:43 5 11/27/24 18:21 11/27/24 18:21 11/27/24 18:21 5 11/27/24 17:00 5 11/27/24 16:00 11/27/24 16:00 5 11/27/24 15:00 5 11/27/24 13:00 5 11/27/24 12:00 11/27/24 11:34 11/27/24 11:34 Intake and Output 11/27/24 11/28/24 11/28/24 23:59 07:59 15:59 Intake Total 2009 240 / 240 Output Total 1099 Balance - -999 Intake: Intake, Oral Amount 2009 240 / 240 Output: Output, Urine Amount 1099 Other: Number of Unmeasured Voids 0 Weight 89.613 kg Patient Weight 11/28/24 23:59 Weight 89.613 kg Laboratory Results - last 24 hr 11/27/24 12:25: Lactate 1.9 11/28/24 04:47: WBC 9.9, RBC 5.32, Hgb 12.8, Hct 41.2, MCV 77.4 L, MCH 24.1 L, MCHC 31.1 L, RDW 20.0 H, Plt Count 305, MPV 10.2, Neut % (Auto) 77.8, Lymph % (Auto) 13.8, [place] % (Auto) 6.9, Eos % (Auto) 1.1, Baso % (Auto) 0.1, Neut # (Auto) 7.7, Lymph # (Auto) 1.4, [place] # (Auto) 0.7, Eos # (Auto) 0.1, Baso # (Auto) 0.0, Sodium 136, Potassium 4.1, Chloride 100, Carbon Dioxide 35 H, Anion Gap 5.1, BUN 17 D, Creatinine 0.70, Estimated Creat Clear 74, Estimated GFR 83, Est GFR ( Amer) 101, Glucose 125 H, Calcium 9.5 I & O for Labs for Last 24 Hours: Intake & Output 11/25/24 11/26/24 11/27/24 11/28/24 23:59 23:59 23:59 23:59 Intake Total 1769 240 / 240 Output Total 1799 Balance - -1859 / Weight 83.915 kg 86.954 kg 89.613 kg Head: Present normal inspection Neck: Present normal inspection and full ROM Respiratory: Present decreased breath sounds, rhonchi and diminished air movement Cardiac: Present Reg Rate and Rhythm GI: Present soft, distention and normal bowel sounds; Absent tenderness Rectal (female): Present deferred (female): Present deferred Extremities: Present normal inspection and full ROM Skin: Present intact Assessment and Plan *Assessment and plan (1) Pneumonia: Status: Acute Qualifiers: Laterality: right Lung location: lower lobe of lung Pneumonia type: due to unspecified organism Qualified Code(s): J18.9 - Pneumonia, unspecified organism Category: Medical Code(s): J18.9 - Pneumonia, unspecified organism (2) Acute on chronic respiratory failure with hypoxia and hypercapnia: Status: Acute Category: Medical Code(s): J96.21 - Acute and chronic respiratory failure with hypoxia; J96.22 - Acute and chronic respiratory failure with hypercapnia (3) Epistaxis: Status: Acute Category: Medical Code(s): R04.0 - Epistaxis (4) Acute exacerbation of chronic obstructive pulmonary disease: Status: Acute Category: Medical Code(s): J44.1 - Chronic obstructive pulmonary disease with (acute) exacerbation (5) Opioid use disorder in remission: Status: Acute Category: Medical Code(s): F11.91 - Opioid use, unspecified, in remission (6) Pulmonary embolism: Status: Acute Qualifiers: Acute cor pulmonale presence: unspecified Chronicity: unspecified Pulmonary embolism type: unspecified Qualified Code(s): I26.99 - Other pulmonary embolism without acute cor pulmonale Category: Medical Code(s): I26.99 - Other pulmonary embolism without acute cor pulmonale (7) DVT (deep venous thrombosis): Status: Acute Qualifiers: Affected thrombotic vein of extremity: other lower extremity vein Chronicity: unspecified DVT location: lower extremity Laterality: bilateral Qualified Code(s): I82.493 - Acute embolism and thrombosis of other specified deep vein of lower extremity, bilateral Category: Medical Code(s): I82.409 - Acute embolism and thrombosis of unspecified deep veins of unspecified lower extremity (8) Constipation: Status: Acute Category: Medical Code(s): K59.00 - Constipation, unspecified Plan Ms. Luo is a 69-year-old female with a history of GERD, history of drug use, hyperlipidemia, COPD, chronic hypoxic respiratory failure baseline 2 L nasal cannula, pulmonary embolism (August 2023), DVT, pulmonary nodules, [id number] smoking history. She presented to the emergency department with increased shortness of breath and a nosebleed. Patient is on anticoagulation for history of DVT and PE. She also has a history of atrial fibrillation. Patient's oxygen was found to be 78% in the emergency room, and chest x-ray showed middle and lower right lobe pneumonia. Discussed plan of care with emergency room physician and decision made for patient to be admitted to the hospital service for further management. #Pneumonia #Acute on chronic respiratory failure with hypoxia and hypercapnia ?Patient was admitted to the hospital for increased shortness of care and hypercarbic respiratory failure; blood gas shows a PCO2 of 62.5 on admission, better today at 45.3. Patient states her shortness of breath is better. She is using her incentive spirometer hourly. Patient being medically managed with 40 mg of p.o. prednisone daily, Pulmicort twice daily, DuoNebs every 6 hours, and Levaquin 750 mg p.o. daily. Continuing to monitor for toxicity. ?Pulmonology consulted, ordered chest CTA for PE protocol, No PE or dissection noted. Pulmonary scarring stable nodules in right lower lobe. ?Patient is afebrile, White count 9.9. ?Sputum culture pending. ? Will continue with serial CBC, CMP in the a.m. ?Pulmonology has cleared the patient from their standpoint. Patient is still requiring 4 L nasal cannula to keep sats above 88%. Will continue to monitor patient and wean oxygen as tolerated to keep sats above 88%. Patient does wear 2 L as needed and at night at home. #Epistaxis ?Resolved. #Opioid use disorder #Pulmonary insulin embolism #DVT ?Continue home medication: Eliquis 5 mg twice daily, atorvastatin 10 mg at bedtime, Suboxone 2 tabs daily, Jardiance 10 mg daily, pantoprazole 40 mg daily, potassium 20 mEq twice daily, Lyrica 300 mg twice daily. #Constipation ?Patient states that she has chronic constipation. She states she has a bowel movement typically every 10 to 14 days. She states that it has been approximately 10 days since her last bowel movement. Abdomen is distended and hard. Nontender to palpation denies abdominal pain. Patient is currently taking Colace, senna. Ordered MiraLAX this morning, encouraged patient to use enema for relief of stool burden. Full code Cardiac diet Pulmonology consulted Eliquis 5 mg twice daily VTE
--- NOTE | 2024-11-28 13:53 | CARE MANAGER ---
Addendum entered by Yeni Holcomb RN 11/29/24 10:58: Patient needs nebulizer. Sent order to [facility]. Original Note: Patient wears oxygen at home. Spoke with [facility] and they state that patient is prescribed O2 @3LPM/NC continuous. She has portable, concentrator, and conserving device. Candi, nurse, states she will tell patient to have family bring portable when she is discharged.
--- NOTE | 2024-11-28 17:01 | PC.NURSE ---
VS stable, patient weaned to 3LNC. Lung sounds diminished. Patient alert and oriented times 4. Patient refusing enema despite education provided by medical staff. No bowl movement noted, bowel sounds active and no pain reported. Abdomen firm and distended but normal per pt.
[2024-11-28] MEDS: PANTOPRAZOLE 40MG TABLET 40 MG PO (20:31)
[2024-11-28] MEDS: ATORVASTATIN 10MG TABLET 10 MG PO (20:31)
--- NOTE | 2024-11-28 20:40 | PC.NURSE ---
Pt stated that she was coughing up blood. Blood tinged mucus noted in pt tissue. this nurse contacted Samaria Meza APRN. New orders to obtain sputum culture, culture sent to lab.
--- NOTE | 2024-11-28 21:29 | EXP.EVENT.NO ---
problem: Patient had a nosebleed before arriving at the hospital. Had spit some at home. Noting that she is on Eliquis. Since she has been here she has has had a cough she has coughed up some bloody sputum now for the second time.. exam: No sign of nosebleed at this time or blood in the back of the pharynx, coming from the sinuses. Patient states she has had sinus issues here lately, that the nosebleed was quite significant but had stopped. plan: Patient still continues with a few cigarettes every day but mostly vapes. Is on the Eliquis exam shows that the patient is in no respiratory distress at this time do feel there is a potential that she could have bleeding from the bronchus related to coughing. But this may be related to blood slowly trickling down the pharynx from the sinuses from the previous nosebleed that accumulates enough she then has to cough it up.. Dose of Eliquis is already been given for tonight I will notify the daytime providers in case we want to hold Eliquis for a while to evaluate source of potential bleeding nose versus lungs
[2024-11-29] VITALS: BP 131/59; PULSE 60; PULSE 70; RESP 18; TEMP 36.4; O2SAT 94
[2024-11-29] MEDS: IPRATROPIUM/ALBUTEROL 3 ML NEB IH ×2 (00:20→06:25)
[2024-11-29 00:21] VITALS: PULSE 72; PULSE 76
[2024-11-29] MEDS: PROMETHAZINE HCL 25MG/ML 1ML VIAL 12.5 MG IV (00:45)
[2024-11-29] MEDS: 0.9 % SODIUM CHLORIDE 25 ML 100 ML IV (00:45)
[2024-11-29 04:00] VITALS: BP 105/56; PULSE 60; PULSE 61; RESP 18; TEMP 36.6; O2SAT 94; BMI 32.0
--- NOTE | 2024-11-29 04:54 | PC.NURSE ---
Pt is alert and oriented x4 and currently tolerating 3L well @ 92%. this nurse was not able to wean oxygen as pt was not able to tolerate it. Pt lung sounds remain diminished. Pt has a NSR on telemetry. Pt abdomen remains distended and firm, however pt denies pain in abdomen. Pt does admit to gas but has not had a BM this shift. This nurse did offer pt an enema of which pt did refuse. Pt did c/o nausea and was treated per AUG.
[2024-11-29 05:31] LABS: Chloride 96 mmol/L (98-107)
[2024-11-29 05:32] LABS: Sodium 137 mmol/L (136-145)
[2024-11-29 05:34] LABS: Blood Urea Nitrogen 19 mg/dl (7-17)
[2024-11-29 05:35] LABS: Calcium 9.1 mg/dl (8.4-10.2); Carbon Dioxide 35 mmol/L (22.0-30.0); Creatinine Clearance Estimated 74 mL/min (50-200); Estimated Glomerular Filt Rate 83 ml/min (>60); GFR (African American) 101 ML/MIN (>60); Glucose 92 mg/dl (74-100)
[2024-11-29 05:45] LABS: Magnesium 1.9 mg/dl (1.6-2.3)
--- NOTE | 2024-11-29 05:45 | PC.NURSE ---
ice water was passed, bedside table were cleaned off and trash and linen in patient was removed.
[2024-11-29 05:46] LABS: Basophils % 0.2 % (0.1-2.0); Eosinophils % 0.2 % (0.1-12.0); Hematocrit 40.3 % (37.0-47.0); Hemoglobin 12.5 g/dL (12.2-16.2); Immature Granulocytes # 0.02 10^3uL; Immature Granulocytes % 0.2 %; Lymphocytes # 2.2 K/mm3 (0.7-4.5); Lymphocytes % 25.1 % (10-50); Mean Corpuscular Volume 77.4 fl (81-99); Mean Platelet Volume 10.5 fl (7.4-10.4); Monocytes # 0.6 K/mm3 (0.1-1.0); Monocytes % 6.9 % (1.7-9.3); Neutrophils # 5.9 K/mm3 (1.8-7.8); Neutrophils % 67.4 % (37.0-80.0); Nucleated Red Blood Cells # 0 10^3/uL; Nucleated Red Blood Cells % 0 %; Platelet Count 314 K/mm3 (142-424); Red Blood Count 5.21 M/mm3 (4.20-5.40); Red Cell Distribution Width 19.8 % (11.5-17.5); Red Cell Distribution Width-SD 53.9 fL; White Blood Count 8.8 K/mm3 (4.8-10.8)
[2024-11-29] MEDS: BUDESONIDE 0.5MG/2ML NEB 0.5 MG IH (06:25)
[2024-11-29 06:26] VITALS: PULSE 68; O2SAT 92
[2024-11-29 08:00] VITALS: BP 112/58; PULSE 65; PULSE 66; RESP 16; TEMP 36.6; O2SAT 92
[2024-11-29] MEDS: POTASSIUM CHLORIDE 20MEQ TAB 20 MEQ PO (08:15)
[2024-11-29] MEDS: FUROSEMIDE 40 MG TABLET PO (08:15)
[2024-11-29] MEDS: SENNA 8.6MG TABLET 8.6 MG PO (08:15)
[2024-11-29] MEDS: EMPAGLIFLOZIN 10MG TABLET 10 MG PO (08:15)
[2024-11-29] MEDS: CHOLECALCIFEROL 1,000 UNITS (25MCG) TABLET 25 MCG PO (08:15)
[2024-11-29] MEDS: PREGABALIN 100MG CAPSULE 300 MG PO (08:15)
[2024-11-29] MEDS: DOCUSATE SODIUM 250MG CAPSULE 250 MG PO (08:15)
[2024-11-29] MEDS: BUPRENORPHINE/NALOXONE 8MG/2MG ODT 2 EACH SL (08:16)
[2024-11-29] MEDS: predniSONE 20MG TAB 40 MG PO (08:16)
[2024-11-29] MEDS: POLYETHYLENE GLYCOL 3350 17 GM PACKET PO (08:16)
--- NOTE | 2024-11-29 08:18 | P.DS_ITS ---
<Statement entered by Zeferino Londono MD - 12/04/24 22:28> Evaluated by the patient and agree with plan of care as outlined by the METAL DEALER. General Admission date:: 11/27/24 Discharge date: 11/29/24 HPI HPI HPI: This is a 69-year-old female who has a past medical history significant for obstructive sleep apnea, HFpEF, DVT, pulmonary embolism, fibromyalgia, current smoker, bronchiectasis, pulmonary emphysema, and COPD who presents with a chief complaint of a nosebleed. Due to patient's symptoms, she presented to the emergency room for evaluation. While in the emergency room, patient's nosebleeding resolved; however, patient was found to be acutely hypoxic on room air with room air saturations at 79%. Patient was placed on nonrebreather and her oxygen saturations improved to 100%. While in the emergency room, she was weaned to 4 L; however, her chest x-ray was consistent with right middle and right lower lobe pneumonia. As a result of these findings, patient is being admitted for further management. During my evaluation of the patient, patient states that her nose started to bleed spontaneous. She is currently prescribed Eliquis and management of DVT/pulmonary embolism. As far as her respiratory status, patient states she wears home O2 as needed at home. She voices no prior cough or wheezing. Moreover, she is denying any PND, orthopnea, lower extremity swelling, exposure to sick individuals, chest pain, lightheadedness, dizziness, fever, chills, rigors, nausea, vomiting, cough or diarrhea. Additional pertinent vitals obtained include a red blood cell count 5.7, pCO2 of 62.5, HCO3 32.6, potassium of 3.4, carbon oxide of 37, BNP of 140, and total protein 8.9. I independently reviewed patient's chest x-ray and it shows right heel large right basilar infiltrate with moderate to severe upper lobe centrilobular emphysema. I independently reviewed patient's EKG and it reveals a sinus rhythm, QTc of 403, normal axis, and no evidence of ST segment elevation or depression Hospital Course Hospital Course Hospital Course: Ms. Luo is a 69-year-old female with a history of GERD, history of drug use, hyperlipidemia, COPD, chronic hypoxic respiratory failure baseline 2 L nasal cannula, pulmonary embolism (August 2023), DVT, pulmonary nodules, [id number] smoking history. She presented to the emergency department with increased shortness of breath and a nosebleed. Patient is on anticoagulation for history of DVT and PE. She also has a history of atrial fibrillation. Patient's oxygen was found to be 78% in the emergency room, and chest x-ray showed middle and lower right lobe pneumonia. Discussed plan of care with emergency room dipak killian and decision made for patient to be admitted to the hospital service for further management. #Pneumonia #Acute on chronic respiratory failure with hypoxia and hypercapnia ?Patient states her dyspnea improved. She states her oxygen at home is 3 L continuously ordered, she wears it as needed and at nighttime. Discussed the importance of wearing 3 L O2 continuously, to keep her O2 saturation above 88%. Patient states her nebulizer is broken, will reorder nebulizer at discharge for home. ? Patient uses Trelegy inhaler twice daily and albuterol inhaler as needed. discussed the importance of continuing the Trelegy inhaler as directed ? Patient had complete therapeutic dose of Levaquin 750 x 3 days. Patient received prednisone 40 mg daily x 3 days, will go home with 2 more days for total of 5 days. Chest x-ray no acute findings, viral panel negative, no leukocytosis noted, patient afebrile. Sputum shows no growth. ?Pulmonology consulted, ordered chest CTA for PE protocol, No PE or dissection noted. Pulmonary scarring stable nodules in right lower lobe. ?Patient's lab work unremarkable at discharge. ? Will have patient follow-up with pulmonology outpatient. #Epistaxis ?Resolved. ?Patient does state that she has had couple episodes of bloody sputum. Will have her follow-up with ENT outpatient for further evaluation. #Opioid use disorder #Pulmonary insulin embolism #DVT ?Continue home medication at discharge: Eliquis 5 mg twice daily, atorvastatin 10 mg at bedtime, Suboxone 2 tabs daily, Jardiance 10 mg daily, pantoprazole 40 mg daily, potassium 20 mEq twice daily, Lyrica 300 mg twice daily. #Constipation ?Patient states that she has chronic constipation. Patient discharged with Docusate 250 daily. Encourage patient to use MiraLAX daily. #Weakness ?Patient was evaluated by PT/OT, home health physical therapy was recommended, patient declined. Patient does live with her daughter and grandson in a single- story home. Patient able to complete ADLs without problems. She states her daughter is able to assist as needed. Exam Data for Last 24 hours Vital signs and Labs for Last 24 Hours: Temp Pulse Resp BP Pulse Ox O2 Del Method O2 Flow Rate 97.8 F 68 18 105/56 L 92 L Nasal Cannula 3 11/29/24 04:00 11/29/24 06:26 11/29/24 04:00 11/29/24 04:00 11/29/24 06:26 11/29/24 06:39 11/29/24 06:39 FiO2 36 11/27/24 02:05 Laboratory Results - last 24 hr 11/29/24 05:01: WBC 8.8, RBC 5.21, Hgb 12.5, Hct 40.3, MCV 77.4 L, MCH 24.0 L, MCHC 31.0 L, RDW 19.8 H, Plt Count 314, MPV 10.5 H, Neut % (Auto) 67.4, Lymph % (Auto) 25.1, Summers % (Auto) 6.9, Eos % (Auto) 0.2, Baso % (Auto) 0.2, Neut # (Auto) 5.9, Lymph # (Auto) 2.2, Summers # (Auto) 0.6, Eos # (Auto) 0.0, Baso # (Auto) 0.0, Sodium 137, Potassium 4.0, Chloride 96 L, Carbon Dioxide 35 H, Anion Gap 10.0, BUN 19 H, Creatinine 0.70, Estimated Creat Clear 74, Estimated GFR 83, Est GFR ( Amer) 101, Glucose 92, Calcium 9.1, Magnesium 1.9 I & O for Last 24 hours: Intake & Output 11/26/24 11/27/24 11/28/24 11/29/24 23:59 23:59 23:59 23:59 Intake Total 1769 1560 / 1560 Output Total 1800 / 1800 5050 / 6150 1100 / 1100 Balance -30 / 210 -3490 / -4590 -1100 / -1100 Weight 83.915 kg 86.954 kg 89.613 kg 87.146 kg Microbiology Reports for the Last 24 Hours: Microbiology 11/28/24 20:36 Sputum - Expectorated Sputum Gram Stain - Final 11/27/24 11:46 Sputum - Expectorated Sputum Gram Stain - Final Constitutional Constitutional: no acute distress *Routine HEENT Exam Head: Present normocephalic Eye: Present PERRL ENT: Present mucous membranes moist *Routine Neck Exam Neck: Present full ROM *Routine Respiratory Exam Respiratory: Present rhonchi, normal respiratory effort and symmetric chest movement *Routine Cardiovascular Exam Cardiovascular: Present RRR *Routine Abdominal Exam Abdominal: Present normoactive bowel sounds and firm; Absent tenderness *Routine Skin Exam Skin: Present intact and dry *Routine Neurological Exam Neurological: Present alert, oriented X3 and normal speech Results Data Completed and Pending Labs on day of discharge: Labs from last 24 hours 11/29/24 05:01 WBC 8.8 RBC 5.21 Hgb 12.5 Hct 40.3 MCV 77.4 L MCH 24.0 L MCHC 31.0 L RDW 19.8 H Plt Count 314 MPV 10.5 H Neut % (Auto) 67.4 Lymph % (Auto) 25.1 Summers % (Auto) 6.9 Eos % (Auto) 0.2 Baso % (Auto) 0.2 Neut # (Auto) 5.9 Lymph # (Auto) 2.2 Summers # (Auto) 0.6 Eos # (Auto) 0.0 Baso # (Auto) 0.0 Sodium 137 Potassium 4.0 Chloride 96 L Carbon Dioxide 35 H Anion Gap 10.0 BUN 19 H Creatinine 0.70 Estimated Creat Clear 74 Estimated GFR 83 Est GFR ( Amer) 101 Glucose 92 Calcium 9.1 Magnesium 1.9 DS: Diagnosis Discharge Diagnosis (1) Pneumonia: Status: Acute Code(s): J18.9 - Pneumonia, unspecified organism Qualifiers: Laterality: right Lung location: lower lobe of lung Pneumonia type: due to unspecified organism Qualified Code(s): J18.9 - Pneumonia, unspecified organism (2) Acute on chronic respiratory failure with hypoxia and hypercapnia: Status: Acute Code(s): J96.21 - Acute and chronic respiratory failure with hypoxia; J96.22 - Acute and chronic respiratory failure with hypercapnia (3) Epistaxis: Status: Acute Code(s): R04.0 - Epistaxis (4) Acute exacerbation of chronic obstructive pulmonary disease: Status: Acute Code(s): J44.1 - Chronic obstructive pulmonary disease with (acute) exacerbation (5) Opioid use disorder in remission: Status: Acute Code(s): F11.91 - Opioid use, unspecified, in remission (6) Pulmonary embolism: Status: Acute Code(s): I26.99 - Other pulmonary embolism without acute cor pulmonale Qualifiers: Acute cor pulmonale presence: unspecified Chronicity: unspecified Pu lmonary embolism type: unspecified Qualified Code(s): I26.99 - Other pulmonary embolism without acute cor pulmonale (7) DVT (deep venous thrombosis): Status: Acute Code(s): I82.409 - Acute embolism and thrombosis of unspecified deep veins of unspecified lower extremity Qualifiers: Affected thrombotic vein of extremity: other lower extremity vein Chronicity: unspecified DVT location: lower extremity Laterality: bilateral Qualified Code(s): I82.493 - Acute embolism and thrombosis of other specified deep vein of lower extremity, bilateral (8) Constipation: Status: Acute Code(s): K59.00 - Constipation, unspecified Meds Home Medications and Allergies Home Medications ?Medication ?Instructions ?Recorded ?Confirmed ?Type albuterol sulfate 90 mcg/actuation 2 puff inhalation Q 8HP PRN 02/22/23 11/27/24 Rx aerosol inhaler shortness of breath or wheez ing #8.5 grams buprenorphine 8 mg-naloxone 2 mg 1.75 film sublingual DAILY 04/21/23 11/27/24 History sublingual film (Suboxone) fluticasone propionate 50 1 spray intranasal BID PRN a llergy 05/08/24 11/27/24 Rx mcg/actuation nasal symptoms 90 days #16 grams spray,suspension (Flonase Allergy Relief) pregabalin 300 mg capsule 300 mg PO BID NEUROPATHY #60 caps 10/01/24 11/27/24 Rx cholecalciferol (vitamin D3) 25 25 mcg PO DAILY 90 day s #90 caps 10/22/24 11/27/24 Rx mcg (1,000 unit) capsule apixaban 5 mg tablet (Eliquis) 5 mg PO BID 11/27/24 History atorvastatin 10 mg tablet 10 mg PO HS 11/27/24 5 History fluticasone fur. 100 mcg-umeclid 1 inh inhalation PALLAVI Y 11/27/24 11/27/24 History 62.5 mcg-vilant 25 mcg inhalat.powder (Trelegy Ellipta) furosemide 40 mg tablet 40 mg PO DAILY 11/27/2411/10 History pantoprazole 40 mg tablet,delayed 40 mg PO DAILY 11/2711/27/24 History release potassium chloride 20 mEq 20 meq PO BID 11/27/2411/27 History tablet,extended release(part/cryst) promethazine 25 mg tablet 25 mg PO Q6H PRN Nausea 11/1011/27/24 History empagliflozin 10 mg tablet See Rx Instructions .Route 11/28/24 Rx (Jardiance) .COMPLEX #90 tabs docusate sodium 250 mg capsule 250 mg PO DAILY 30 days #30 caps 11/29/24 Rx ipratropium 0.5 mg-albuterol 3 mg 3 ml inhalation QID PRN wheezing 11/29/24 Rx (2.5 mg base)/3 mL nebulization #90 mL soln ipratropium 0.5 mg-albuterol 3 mg 3 ml inhalation TID PRN COPD 30 11/29/24 11/27/24 Rx (2.5 mg base)/3 mL nebulization days #90 mL soln prednisone 20 mg tablet 40 mg (2 x 20 mg) PO DAILY 3 days 11/29/24 Rx #6 tabs New Prescriptions to Start Prescriptions: docusate sodium Rosie Danielson ipratropium-albuterol Rosie Danielson prednisone Rosie Danielson Allergies Allergy/AdvReac Type Severity Reaction Status Date / Time No Known Allergies Allergy Verified 10/01/24 10:28 Discharge Plan Disposition Patient Disposition: Home, Self-Care Condition: Fair Discharge Order Discharge Orders: Discharge Order (Routine); Ordered 11/29/24 Ordered By: Rosie Dnaielson Follow up Plan Follow up with: Travis Kaplan APRN [Primary Care Provider, Family Practice] - 12/04/24 1:00 pm Nathalia Fine APRN [Nurse Practitioner, Ear, Nose, Throat] - 12/16/24 1:40 pm Problems: Epistaxis Guera Chow MD [Physician, Pulmonology] - 12/24/24 1:00 pm Prescriptions/Medication Reconciliation: New prednisone 20 mg Tablet 40 mg PO DAILY 3 Days Qty: 6 0RF docusate sodium 250 mg Capsule 250 mg PO DAILY 30 Days Qty: 30 0RF ipratropium-albuterol 0.5 mg-3 mg(2.5 mg base)/3 mL solution for nebulization 3 ml inhalation QID PRN (Reason: wheezing) Qty: 90 2RF Continued pregabalin 300 mg capsule 300 mg PO BID Qty: 60 2RF buprenorphine-naloxone [Suboxone] 8-2 mg film 1.75 film sublingual DAILY Patient Comments: PLACE 2 FILMS UNDER THE TONGUE AND ALLOW TO DISSOLVE 1 TIME EACH DAY albuterol sulfate 90 mcg/actuation HFA aerosol inhaler 2 puff IH Q8HP PRN (Reason: shortness of breath or wheezing) Qty: 8.5 2RF fluticasone propionate [Flonase Allergy Relief] 50 mcg/actuation spray,suspension 1 spray intranasal BID PRN (Reason: allergy symptoms) 90 Days Qty: 16 3RF Rx Instructions: administer into each nostril cholecalciferol (vitamin D3) 25 mcg (1,000 unit) capsule 25 mcg PO DAILY 90 Days Qty: 90 3RF Jardiance 10 mg tablet See Rx Instructions .ROUTE .COMPLEX Qty: 90 3RF Dose Instruction: TAKE 1 TABLET 1 TIME EACH DAY Rx Instructions: TAKE 1 TABLET 1 TIME EACH DAY furosemide 40 mg tablet 40 mg PO DAILY atorvastatin 10 mg tablet 10 mg PO HS potassium chloride 20 mEq tablet,ER particles/crystals 20 meq PO BID pantoprazole 40 mg tablet,delayed release (DR/EC) 40 mg PO DAILY promethazine 25 mg tablet 25 mg PO Q6H PRN (Reason: Nausea) Eliquis 5 mg tablet 5 mg PO BID Trelegy Ellipta 100-62.5-25 mcg blister with device 1 inh inhalation DAILY Changed ipratropium-albuterol 0.5 mg-3 mg(2.5 mg base)/3 mL solution for nebulization 3 ml IH TID PRN (Reason: COPD) 30 Days Qty: 90 2RF Rx Instructions: one vial in nebulizer tid. stop albuterol nebs Other Ambulatory Orders: Home Medical Equipment (Routine) Location: None Selected Ordered By: Rosie Danielson Problem Reconciliation Problems Reviewed?: Yes Patient Discharge Instructions ACTIVITY: Continue current activity DIET: continue same diet Patient Instructions: DI for Pneumonia -- Adult, DI for Respiratory Failure, Stop Light Pneumonia, Stop Light COPD, Stop Light Heart Failure, Stop Light Infection Print Language: [place]se Providers Primary Care Provider: Travis Kaplan Admit Provider: Cr Heard Attending Provider: Cr Heard
--- NOTE | 2024-11-29 08:23 | EXP.PULM.PN ---
Subjective *Date: 11/29/24 *Time: 09:55 Interval history: No acute respiratory vents overnight. Patient denies any new respiratory complaint. Admits 3-4 episodes of scant hemoptysis mixed with phlegm Pulmonology Exam Inpatient Vital signs and Labs for Last 24 Hours: Temp Pulse Resp BP Pulse Ox O2 Del Method O2 Flow Rate 97.8 F 68 18 105/56 L 92 L Nasal Cannula 3 11/29/24 04:00 11/29/24 06:26 11/29/24 04:00 11/29/24 04:00 11/29/24 06:26 11/29/24 06:39 11/29/24 06:39 FiO2 36 11/27/24 02:05 Laboratory Results - last 24 hr 11/29/24 05:01: WBC 8.8, RBC 5.21, Hgb 12.5, Hct 40.3, MCV 77.4 L, MCH 24.0 L, MCHC 31.0 L, RDW 19.8 H, Plt Count 314, MPV 10.5 H, Neut % (Auto) 67.4, Lymph % (Auto) 25.1, Trimble % (Auto) 6.9, Eos % (Auto) 0.2, Baso % (Auto) 0.2, Neut # (Auto) 5.9, Lymph # (Auto) 2.2, Trimble # (Auto) 0.6, Eos # (Auto) 0.0, Baso # (Auto) 0.0, Sodium 137, Potassium 4.0, Chloride 96 L, Carbon Dioxide 35 H, Anion Gap 10.0, BUN 19 H, Creatinine 0.70, Estimated Creat Clear 74, Estimated GFR 83, Est GFR ( Amer) 101, Glucose 92, Calcium 9.1, Magnesium 1.9 Temp Pulse Resp BP Pulse Ox O2 Del Method O2 Flow Rate 97.5 F L 80 18 122/67 89 L Nasal Cannula 5 11/27/24 08:00 11/27/24 08:00 11/27/24 08:00 11/27/24 08:00 11/27/24 08:00 11/27/24 08:00 11/27/24 08:00 FiO2 36 11/27/24 02:05 Laboratory Results - last 24 hr 11/26/24 22:46: WBC 9.5, RBC 5.75 H, Hgb 13.7, Hct 45.2, MCV 78.6 L, MCH 23.8 L, MCHC 30.3 L, RDW 20.2 H, Plt Count 348, MPV 9.7, Neut % (Auto) 72.0, Lymph % (Auto) 18.7, Trimble % (Auto) 7.3, Eos % (Auto) 1.3, Baso % (Auto) 0.4, Neut # (Auto) 6.8, Lymph # (Auto) 1.8, Trimble # (Auto) 0.7, Eos # (Auto) 0.1, Baso # (Auto) 0.0, VBG pH 7.34, VBG pCO2 62.5 H, VBG pO2 32.6, VBG HCO3 32.6 H, VBG Total CO2 34.5 H, VBG O2 Saturation 62.8, VBG Base Excess 6.7 H, VBG Lactic Acid 1.3, Sodium 141, Potassium 3.4 L, Chloride 99, Carbon Dioxide 37 H, Anion Gap 8.4, BUN 10, Creatinine 0.90, Estimated Creat Clear 71, Estimated GFR 62, Est GFR ( Amer) 75, Glucose 75, Calcium 9.8, Total Bilirubin 0.7, AST 29, ALT 17, Alkaline Phosphatase 124, Troponin I < 0.01, NT-Pro-B Natriuret Pep 140 H, Total Protein 8.9 H D, Albumin 4.4, Globulin 4.5 H, Albumin/Globulin Ratio 1.0 L, HCV Ab ARTURO w/Rflx PCR Qn Negative, HIV Ag/Ab Combo Qual Negative 11/27/24 00:22: Chlamy pneumoniae PCR Not detected, Adenovirus (PCR) Not detected, B. pertussis DNA (PCR) Not detected, Coronavirus OC43 (PCR) Not detected, Coronavirus HKU1 (PCR) Not detected, Coronavirus 229E (PCR) Not detected, SARS-CoV-2 (PCR) Not detected, Coronavirus NL63 (PCR) Not detected, Human Metapneumovir PCR Not detected, Influenza A (H1) PCR Not detected, Influ A (H1N1/09) PCR Not detected, Influenza A (H3) PCR Not detected, Influenza Type A (PCR) Not detected, Influenza Type B (PCR) Not detected, M. pneumoniae (PCR) Not detected, Parainfluenza 1 (PCR) Not detected, Parainfluenza 2 (PCR) Not detected, Parainfluenza 3 (PCR) Not detected, Parainfluenza 4 (PCR) Not detected, RSV (PCR) Not detected, Entero/Rhino (PCR) Not detected 11/27/24 02:28: Troponin I < 0.01 11/27/24 04:45: WBC 10.5, RBC 5.51 H, Hgb 13.2, Hct 42.6, MCV 77.3 L, MCH 24.0 L, MCHC 31.0 L, RDW 19.8 H, Plt Count 316, MPV 10.1, Neut % (Auto) 93.0 H, Lymph % (Auto) 5.2 L, Trimble % (Auto) 0.9 L, Eos % (Auto) 0.1, Baso % (Auto) 0.3, Neut # (Auto) 9.8 H, Lymph # (Auto) 0.6 L, Trimble # (Auto) 0.1, Eos # (Auto) 0.0, Baso # (Auto) 0.0, Sodium 137, Potassium 3.6, Chloride 100, Carbon Dioxide 34 H, Anion Gap 6.6, BUN 12, Creatinine 0.60 D, Estimated Creat Clear 74, Estimated GFR 99, Est GFR ( Amer) 120 D, Glucose 153 H D, Calcium 9.6, Magnesium 2.1, Troponin I < 0.01, Procalcitonin 0.045 I & O for Labs for Last 24 Hours: Intake & Output 11/26/24 11/27/24 11/28/24 11/29/24 23:59 23:59 23:59 23:59 Intake Total 1769 1560 / 1560 Output Total 1800 / 1800 5050 / 6150 1100 / 1100 Balance -30 / 210 -3490 / -4590 -1100 / -1100 Weight 185 lb 191 lb 11.2 oz 197 lb 9 oz 192 lb 2 oz Intake & Output 11/24/24 11/25/24 11/26/24 11/27/24 23:59 23:59 23:59 23:59 Intake Total 650 / 650 Balance 650 / 650 Weight 185 lb 191 lb 11.2 oz Microbiology Reports for the Last 24 Hours: Microbiology 11/28/24 20:36 Sputum - Expectorated Sputum Gram Stain - Final 11/27/24 11:46 Sputum - Expectorated Sputum Gram Stain - Final Constitutional: Present moderate distress Head: Present normocephalic and atraumatic ENT: Present normal exam, normal oropharynx and mucous membranes moist Neck: Present normal inspection and full ROM Respiratory: Present respiratory distress, rhonchi and able to speak in complete sentences; Absent wheezes Cardiac: Present S1/S2, Tachycardia and radial pulses present GI: Present soft and distention; Absent tenderness or guarding Rectal (female): Present deferred (female): Present deferred Skin: Present intact; Absent cyanosis or jaundice Neuro: Present alert, awake and oriented x 3 Extremities: Present normal inspection; Absent clubbing or cyanosis Psychiatric: Present normal affect and cooperative Assessment and Plan *Assessment and plan (1) Pneumonia: Status: Acute Qualifiers: Laterality: right Lung location: lower lobe of lung Pneumonia type: due to unspecified organism Qualified Code(s): J18.9 - Pneumonia, unspecified organism Category: Medical Code(s): J18.9 - Pneumonia, unspecified organism (2) Acute and chronic respiratory failure with hypoxia: Status: Acute Category: Medical Code(s): J96.21 - Acute and chronic respiratory failure with hypoxia (3) COPD (chronic obstructive pulmonary disease): Status: Chronic Qualifiers: COPD type: emphysema Emphysema type: unspecified Qualified Code(s): J43.9 - Emphysema, unspecified Category: Medical Code(s): J44.9 - Chronic obstructive pulmonary disease, unspecified Plan Ms. Luo is a 69-year-old male greater than [id number] smoking history, COPD, chronic hypoxic respiratory failure on 2 L nasal cannula oxygen supplementation at baseline, history of pulmonary embolism (august 2023) and DVT on anticoagulation, pulmonary nodules presented to the ER Complaining of nasal bleeds also found to be hypoxic respiratory failure needing increasing oxygen consult pulmonary was called for further evaluation and management. Patient denies any known sick contacts. No subjective fevers or chills per denies any worsening cough or any productive phlegm. Afebrile. Hemodynamically stable. No evidence of leukocytosis. Pro-Deangelo within normal limits at 0.045. Complains of respiratory viral PCR panel negative. Blood gas upon admission no significant evidence of hypercarbic respiratory failure Chest x-ray upon admission concerning bilateral lower lobe infiltrates right greater than left. CT chest minimal lower lobe airspace disease. No significant dense consolidative/airspace changes noted. No pulmonary embolism. Interval update: No acute respiratory events overnight. Improving oxygen requirements. Sputum cultures no organisms or cells seen. Likely suboptimal sample. Admits 4 episodes hemoptysis since yesterday scant dark red blood mixed with phlegm. H&H stable. Plan: Continue oxygen supplementation to maintain O2 saturation above 90% and above. Baseline needing 2 L, needing 3 to 4 L on this hospital admission. DuoNebs every 6 hours along with Pulmicort every 12 scheduled. Continue full dose anticoagulant for her previous pulmonary embolism on Eliquis 5 mg twice daily Continue levofloxacin 750 mg daily to complete a total of 3-day course Continue prednisone 40 mg daily to complete a total of 5-day course. Volume optimization as per primary team and cardiology # Patient can be discharged from pulmonary standpoint at this point of time. Will follow the patient in pulmonary clinic 1 to 2 weeks postdischarge
[2024-11-29] MEDS: levoFLOXacin 750 MG TABLET PO (11:07)
[2024-11-29] MEDS: LACTULOSE 20GM/30ML UDC 20 GM RC (11:08)
[2024-11-29 12:00] VITALS: BP 110/68; PULSE 66; PULSE 84; RESP 22; TEMP 36.8; O2SAT 90
--- NOTE | 2024-12-03 10:39 | SW/DCPLANNER ---
Phoned patient x2. Patient's voicemail isnt sat up. Padmini DOWNEY Human Resource Intern
== END 2024-11-29 13:35 | disposition home or self-care (01) | DRG 193 ==
LOC: ER 11-27 00:22 → 2ND 11-27 01:11
PROVIDERS: Emergency Medicine; Internal Medicine Pulmonary Disease; Nurse Practitioner Family; Admitting Provider Internal Medicine Adolescent Medicine; Emergency Provider Emergency Medicine; PCP Nurse Practitioner Family; Visit Provider Internal Medicine Adolescent Medicine
DX: J18.9 Pneumonia, unspecified organism (principal); J96.21 Acute and chronic respiratory failure with hypoxia; J96.22 Acute and chronic respiratory failure with hypercapnia; J44.0 Chronic obstructive pulmonary disease with (acute) lower respiratory infection; I50.32 Chronic diastolic (congestive) heart failure; J44.1 Chronic obstructive pulmonary disease with (acute) exacerbation; R91.1 Solitary pulmonary nodule; R04.0 Epistaxis; K59.00 Constipation, unspecified; R53.1 Weakness; K21.9 Gastro-esophageal reflux disease without esophagitis; E78.5 Hyperlipidemia, unspecified; G47.33 Obstructive sleep apnea (adult) (pediatric); M79.7 Fibromyalgia; F11.91 Opioid use, unspecified, in remission; F17.210 Nicotine dependence, cigarettes, uncomplicated; F17.290 Nicotine dependence, other tobacco product, uncomplicated; Z86.711 Personal history of pulmonary embolism; Z99.81 Dependence on supplemental oxygen; Z86.718 Personal history of other venous thrombosis and embolism; Z79.84 Long term (current) use of oral hypoglycemic drugs; Z79.01 Long term (current) use of anticoagulants; Z79.899 Other long term (current) drug therapy
CPT/HCPCS: 36415; 71045; 71275; 74018; 80048; 80053; 82803; 83605; 83735; 83880; 84145; 84484; 85025; 86803; 87070; 87205; 87389; 87633; 93005; 94640; 94760; 94761; 97110; 97162; 97166; 97535; J0574; J2405; J2550; J2919; J3475; J8540; Q9967

== ENCOUNTER 2025-03-04 09:59 | Outpatient (CLI) | payer MEDICARE, OTHER, SELFPAY ==
--- OUTSIDE RECORDS SUMMARY | 2025-03-05 09:58 | XMS_ITS | Clinical Summary ---
Author Organization Healthcare Address [address] [place] [address] Care Team Providers Care Painter Maintenance Name Role Phone FerminmeseretmagaliTravis [employer] REPORTER Primary Care Provider [phone] Allergies No known active allergies Medications atorvastatin [...] place to sleep or slept in a care home (including now)? No 09/08/2023 Utilities Answer Date Recorded In the past 12 months has th e [employer], gas, oil, or water company threatened to [...] - Risk 60-74 years 1-dose series) 2016 [id number] Vaccine (1 - 2023- season) 2025 UKY-Influenza Vaccine (#1) 02/10/202504/21, 05/17/2021, 03/27/2020, Additional history exists [facility]Y-DTaP,Tdap,and Td [...] Antigen Negative Negative 09/07/2023 4:48 AM EDT [facility] Hepatitis C Antibody Negative Negative 09/07/2023 4:48 AM EDT [facility] Hepatitis A Antibody IgM Negative Negative 09/07/2023 4:48 AM EDT [facility] Hepatitis B Core Antibody IgM Negative Negative 09/07/2023 4:48 AM EDT [facility] Blood Venous blood specimen / Unknown Venipuncture / Unknown 09/07/2023 3:10 AM EDT 09/07/2023 3:15 AM EDT us Ubaldo Tavarez MD LAB BLOOD ORDERABLES Final Res [facility] [address] [place] [address] * (ABNORMAL) Hemoglobin A1c (09/07/2023 2:37 AM EDT) Hemoglobin A1c 6.3(H) <5.7 % 09/07/2023 5:25 AM EDT [facility] Blood Venous blood specimen / [...] Adults <6.0% Children and Adolescents <7.5% Source: [place] [employer]. Standards of medical care in diabetes,2017. Diabetes Care.2017:40 (suppl 1):S1-S135. HbA1c assay performed by an ion-exchange chromatography method that is certified traceable to the DCCT. Nicole Carreon MD LAB BLOOD ORDERABLES Final R esult [facility] [address] [place] [address] from Last 3 Months or Most Recently Relevant to Health Maintenance Insurance [facility] MEDICAID [facility] MEDICARE Advance Directives * Full Code (Latest Code Status on File) Date Activated Date Inactivated Comments 09/07/2023 4:25 AM 09/16/2023 1:09 AM Question Answer Comments Patient has decision-making capacity? Yes Care Teams Painter Maintenance Relationship Specialty Start Date End Date Travis Kaplan APRN [address] [place] [address] PCP - General 09/18/23
== END 2025-03-04 23:59 | disposition home or self-care (01) ==
LOC: LAB.DROPOF 03-05 09:47
PROVIDERS: PCP Nurse Practitioner Family; Visit Provider Nurse Practitioner Family
DX: N39.0 Urinary tract infection, site not specified (principal)
CPT/HCPCS: 87086

== ENCOUNTER 2025-04-25 12:35 | Outpatient (CLI) | payer MEDICARE, MEDICAID, SELFPAY ==
[2025-04-25] MEDS: IPRATROPIUM/ALBUTEROL 3 ML NEB IH (13:21)
== END 2025-04-25 23:59 | disposition home or self-care (01) ==
LOC: RT 12:35
PROVIDERS: PCP Physician Assistant; Visit Provider Internal Medicine Pulmonary Disease
DX: J44.9 Chronic obstructive pulmonary disease, unspecified (principal); R94.2 Abnormal results of pulmonary function studies
CPT/HCPCS: 94010; 94618